=== PATIENT | male | born 1950 | race Caucasian/White ===

== ENCOUNTER → 2017-09-22 | Outpatient (CLI) | payer OTHER ==
[~2017-09-22] MED LIST: ACET-1256 PO; ANT25 PO; ATOR-22 PO; DVN/160 PO; LEVO150T9 PO
[2017-09-22 12:36] LABS: BASO ABS # 0.06 K/uL (0-0.2); EOS % 2.4 %; EOS ABS # 0.15 K/uL (0-0.5); HEMATOCRIT 42.2 % (42-52); HEMOGLOBIN 13.8 g/dL (14.0-18.0); IG# 0.01 K/uL (0.00-0.02); LYMPH ABS # 1.25 K/uL (1.2-3.4); MEAN CELL VOLUME 87.6 fL (80-100); MEAN CORPUSCULAR HEMOGLOBIN 28.6 pg (25-34); MEAN CORPUSCULAR HGB CONC 32.7 g/dl (32-36); MEAN PLATELET VOLUME 10.9 fL (7.4-10.4); MONO % 12.6 %; MONO ABS # 0.79 K/uL (0.11-0.59); NEUT % 63.8 %; NEUT ABS # 3.99 K/uL (1.4-6.5); PLATELET COUNT 245 K/uL (130-400); RED CELL DISTRIBUTION WIDTH CV 14.9 % (11.5-14.5); RED CELL DISTRIBUTION WIDTH SD 47.6 fL (36.4-46.3); WHITE BLOOD COUNT 6.25 K/uL (4.8-10.8)
[2017-09-22 13:54] LABS: ALBUMIN 3.6 gm/dl (3.4-5.0); ALKALINE PHOSPHATASE 66 U/L (45-117); ALT/SGPT 38 U/L (12-78); AST/SGOT 18 U/L (15-37); BLOOD UREA NITROGEN 21 mg/dl (7-18); CARBON DIOXIDE 29 mmol/L (21-32); CREATININE 1.17 mg/dl (0.60-1.40); GLUCOSE 94 mg/dl (70-99); POTASSIUM 4.7 mmol/L (3.5-5.1); SODIUM 142 mmol/L (136-145); TOTAL PROTEIN 7.3 gm/dl (6.4-8.2)
[2017-09-22 14:05] LABS: CHOLESTEROL 160 mg/dl (0-200); LDL CHOLESTEROL CALCULATED 89 mg/dl
== END | disposition home or self-care (01) ==
LOC: C.LABBFT 07:46
PROVIDERS: ATTEND Internal Medicine
DX: I10 Essential (primary) hypertension (principal); R31.29 Other microscopic hematuria; E78.5 Hyperlipidemia, unspecified; E03.9 Hypothyroidism, unspecified

== ENCOUNTER 2022-11-30 15:50 | Inpatient (IN) ==
[2022-11-30] MEDS ORDERED: SODIUM CHLORIDE 0.9% 500 ML IV STA (16:16)
[2022-11-30] MEDS ORDERED: ONDANSETRON INJ 2 MG/ML 2 ML VIAL IV STA (16:16)
[2022-11-30] MEDS ORDERED: KETOROLAC TROMETHAMINE 15 MG/ML VIAL IV STA (16:16)
[2022-11-30] MEDS ORDERED: dexAMETHasone**PF** 10 MG/ML VIAL IV ONE (16:16)
--- NOTE | 2022-11-30 16:33 | Emergency Department Note ---
Impression & Plan Acute lumbar radiculopathy, Foot drop, left ED Provider Note NAME: LJ VANN III AGE: 72 SEX: M : 1950 ARRIVES VIA: Walk-In INFORMANT: Patient, ED PROVIDER(S): Lon Ray DO CHIEF COMPLAINT: Leg pain HPI: The patient is a 72-year-old male who presented to the emergency department for an evaluation of left leg pain. The patient has a long history of lumbar disc disease as well as lumbar radiculopathy from an injury he sustained many years ago. He has had surgery before. He was seen in our facility recently for similar complaints and followed up with his orthopedic spinal specialist. It was felt that the patient may require inpatient management as well as further testing. He was referred to the emergency department today for further evaluation. The patient states he has been compliant with his outpatient medications. He was started on oxycodone which he did take this morning. He states that this only helps slightly. He denies having any headache or weakness the upper extremities. ROS: See above HPI for pertinent positives & negatives. A total of 10 systems reviewed and were otherwise negative. PAST MEDICAL HISTORY: See Below PAST SURGICAL HISTORY: See Below FAMILY HISTORY: See Below SOCIAL HISTORY: See Below HOME MEDICATIONS: See Below ALLERGIES: See Below VITALS: See Below PHYSICAL EXAMINATION: GENERAL: The patient is awake and alert. He is very anxious appearing. EYES: The conjunctivae are clear. The pupils are round and reactive. EARS, NOSE, MOUTH AND THROAT: The nose is without any evidence of any deformity. NECK: The neck is nontender and supple. RESPIRATORY: Normal respiratory effort is noted there is no evidence of wheezing rhonchi or rales CARDIOVASCULAR: Regular rate and rhythm noted there no murmurs rubs or gallops normal S1 normal S2. GASTROINTESTINAL: The abdomen is soft. Abdomen is nontender. BACK: Diffuse midline tenderness was noted in the lumbar spine. Range of motion appears intact but painful. MUSCULOSKELETAL/EXTREMITIES: There is no evidence of gross deformity full range of motion is noted in the hips and shoulders. SKIN: There is no obvious evidence of any rash. There are no petechiae, pallor or cyanosis noted. NEUROLOGIC: Patient is awake alert and oriented x3. Patellar tendon reflexes were 1+ bilaterally. Achilles tendon reflexes were 1+ bilaterally. Great toe raise was absent in the left foot but present in the right foot. MEDICAL DECISION MAKING: The patient is a 72-year-old male who presented to the emergency department for an evaluation of back pain and leg issues. The patient has a history of lumbar disease in the past. He initially had problems with an injury many years ago. He has had surgery since. He has been followed by Dr. Moya. He was seen in our facility recently. Unfortunately patient cannot have an MRI. Attempts at a myelogram were not successful. The patient was seen today by his primary orthopedic spinal specialist. He was sent to the emergency department for further evaluation. I discussed patient's laboratory results with him. I discussed his condition with his primary orthopedic spinal specialist group. At this time they would prefer to keep the patient as an inpatient for possible surgical management. The patient was treated with pain medication as well as IV steroids emergency department. He was feeling much better on reevaluation. Triage Nursing notes reviewed. Prior medical records reviewed Vital Signs: reviewed and remarkable for hypertension. Differential diagnosis: Musculoskeletal, disc herniation, fracture, metastatic disease, cord compression, discitis, sciatica, cauda equina, infection, aortic disease, renal colic, gastrointestinal, as well as other pathologies. ER treatment provided: See below Diagnostics interpreted by me: ECG: none Cardiac Monitoring: An order was placed for continuous cardiac monitoring. The monitor shows a rate of 65 bpm with sinus rhythm. Laboratory studies: As stated above and show below. Imaging studies: See below. Consultation(s): I discussed this case with Karla who was on for Dr. Moya. Past Med/Surg History Medical History Amaurosis fugax of left eye Seen by PCP 01/27/22- referred by opthalmologist- had carotid doppler, head MRA and ECHO (all were unremarkable)-Holter scheduled 06/21/22 BPH (benign prostatic hyperplasia) Chronic back pain History of basal cell carcinoma of skin History of COVID-19 Diagnosed via home test 04/07/22--mild symptoms, no symptoms now...was tested @ [facility] on 04/21/22 and was NEGATIVE--continues to not have any symptoms History of renal stone Hypercholesterolemia Hypertension Hypothyroidism Macular degeneration of left eye Vertigo Surgical History History of appendectomy History of basal cell carcinoma (BCC) excision History of cataract surgery bilateral History of colonoscopy History of cystoscopy w/laser destruction kidney stone and stent placement; 05/10/22: LMA#5. History of hernia repair x2 on right side History of lumbar spinal fusion (~09/08/01) History of open reduction and internal fixation (ORIF) procedure (~09/08/01) left wrist History of tonsillectomy and adenoidectomy Hx laparoscopic cholecystectomy (05/27/22) Laparoscopic Cholecystectomy with Cholangiogram - Phu Arreguin MD, FACS S/P laparoscopic hernia repair left Family History Mother Heart disease Stroke syndrome Father Heart disease Myocardial infarction Sister Kidney disease Grandfather Heart disease Unknown Heart disease Other No family history of adverse response to anesthesia Denies family history of Ovarian cancer Prostate cancer Breast cancer Colorectal cancer Social History Smoking Status: Never smoker Age Quit Using Tobacco: 33; Second Hand Exposure: No; Hx Alcohol Use: Yes (very rarely) Alcohol type: beer and wine Alcohol Intake Frequency: Monthly or Less Hx Substance Use: No Preferred Language: Spanish Communication Ability: Effective Visual Impairment: No Limitations Hearing Ability: Normal 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[employer] Kitchen Required: No Beliefs That Will Affect Care: None marital status: Current Living Situation: Spouse current occupational status: retired Feels Safe at Home: Yes Childhood Exposure to Second-Hand Smoke: Yes caffeine: Yes during the past year weight has: remained stable Dental Care, Regularly: Yes Physical Activity Frequency: Daily Seatbelt Use: always Sunscreen Use: Yes Assistive Devices: Glasses Allergies Allergies Allergy/AdvReac Type Severity Reaction Status Date / Time Influenza Virus Vaccines Allergy Severe THROAT Verified 11/30/22 17:11 SWELL, LIPS SWELLING Penicillins Allergy Severe SWELLING,HIVES Verified 11/30/22 17:11 RASH morphine AdvReac Severe SEVERE Verified 11/30/22 17:11 HEADACHE lisinopril AdvReac Intermediate COUGH Verified 11/30/22 17:11 Home Meds Home Medications Medication Instructions Recorded Confirmed resvbcgs-[id number] acid 0.4 1 tab PO BID 10/25/18 11/30/22 mg-lycopene 2 mg-lutein 250 mcg tablet (Essential Man 50 Plus) levothyroxine 150 mcg tablet 150 mcg PO QAM 04/21/22 11/30/22 (Synthroid) rosuvastatin 20 mg tablet 20 mg PO HS 11/30/22 11/30/22 Previous Rx's Medication Instructions Recorded meclizine 25 mg tablet 25 mg PO TID PRN vertigo #30 tabs 03/20/21 hydrochlorothiazide 12.5 mg tablet 12.5 mg PO QAM #90 tabs 07/02/22 irbesartan 300 mg tablet 300 mg PO QAM #90 tabs 07/02/22 oxycodone-acetaminophen 5 mg-325 1 tab PO Q8H PRN pain #10 tabs 11/27/22 mg tablet (Endocet) Results & Data (ED) Vital Signs Vital Signs - 24 hr 11/30/22 16:05 11/30/22 16:59 11/30/22 16:59 Temperature 36.8 C Temperature Source Temporal Artery Scan Pulse Rate 72 Pulse Rate [Right Finger] 65 Pulse Rhythm [Right Finger] Regular Respiratory Rate 18 20 Respiratory Effort / Characteristics Non-Labored Spontaneous Respiratory Depth Normal Respiratory Pattern Regular Blood Pressure 170/101 H Blood Pressure [Right Arm] 171/100 H Blood Pressure Mean 124 Blood Pressure Mean [Right Arm] 123 Blood Pressure Position Sitting Pulse Oximetry 94 94 94 Oxygen Delivery Method Room Air Room Air Room Air Sepsis Recent Fever Within 48 Hours No Sepsis New/Unexplained Change in Mental Status No Sepsis Action Taken by Nursing No Action Required Home Medications Current Medication List: was personally reviewed by me Laboratory Data Attestation: I reviewed the patient's lab results. 11/30/22 16:50 11/30/22 16:50 Lab Results 11/30/22 11/30/22 Range/Units 16:50 16:50 WBC 6.55 (4.8-10.8) K/ul RBC 4.54 L (4.70-6.10) M/uL Hgb 13.0 L (14.0-18.0) g/dl Hct 38.6 L (42.0-52.0) % MCV 85.0 (80.0-100.0) fL MCH 28.6 (25.0-34.0) pg MCHC 33.7 (32.0-36.0) g/dL RDW Std Deviation 40.1 (36.4-46.3) fL RDW Coeff of Estephania 13.0 (11.5-14.5) % Plt Count 259 (130-400) K/uL MPV 10.5 (9.4-12.4) fL Immature Gran % (Auto) 0.3 % Neut % (Auto) 72.7 % Lymph % (Auto) 13.7 % Foard % (Auto) 11.3 % Eos % (Auto) 1.1 % Baso % (Auto) 0.9 % Neut # (Auto) 4.76 (1.40-6.50) K/uL Lymph # (Auto) 0.90 L (1.2-3.4) K/uL Foard # (Auto) 0.74 H (0.11-0.59) K/uL Eos # (Auto) 0.07 (0-0.50) K/uL Baso # (Auto) 0.06 (0-0.2) K/uL Immature Gran # (Auto) 0.02 (0.01-0.20) K/uL SARS-CoV-2, RNA, NAAT NEGATIVE (NEGATIVE) Administered Medications Discontinued Medications Dexamethasone Sodium Phosphate (DexamethasonePf 10 Mg/Ml Vial) 10 mg IV NOW ONE Stop: 11/30/22 16:17 Last Admin: 11/30/22 16:52 Dose: 10 mg Documented By: SAMSON Sodium Chloride (Nss) 500 mls @ 999 mls/hr IV .Q31M STA Stop: 11/30/22 16:46 Last Infusion: 11/30/22 17:33 Dose: 0 mls/hr Documented By: Admin: 11/30/22 16:52 Dose: 999 mls/hr Documented By: SAMSON Ketorolac Tromethamine (Ketorolac Tromethamine 15 Mg/Ml Vial) 10 mg IV NOW STA Stop: 11/30/22 16:17 Last Admin: 11/30/22 16:52 Dose: 10 mg Documented By: SAMSON Ondansetron HCl (Ondansetron Inj 2 Mg/Ml 2 Ml Vial) 4 mg IV NOW STA Stop: 11/30/22 16:17 Last Admin: 11/30/22 16:52 Dose: 4 mg Documented By: SAMSON Discharge Plan Visit Data Chief Complaint: Leg Injury/Pain Stated Complaint: PAIN L LEG, REF BY DOC,WEAKNESS IN LEG ED Provider: Lon Ray Discharge Problem: Acute lumbar radiculopathy, Foot drop, left Patient Disposition: Being Evaluated by Surgeon Forms Stand Alone Forms: My [facility] Prescriptions Prescriptions: No Action irbesartan 300 mg tablet 300 mg PO QAM Qty: 90 3RF hydrochlorothiazide 12.5 mg tablet 12.5 mg PO QAM Qty: 90 3RF meclizine 25 mg tablet 25 mg PO TID PRN (Reason: vertigo) Qty: 30 0RF Essential Man 50 Plus 0.4-2-250 mg-mg-mcg Tablet 1 tab PO BID Rx Instructions: contains omega 3 and food nutrients levothyroxine [Synthroid] 150 mcg tablet 150 mcg PO QAM oxycodone-acetaminophen [Endocet] 5-325 mg tablet 1 tab PO Q8H PRN (Reason: pain) Qty: 10 0RF rosuvastatin 20 mg tablet 20 mg PO HS Referrals Referrals: Leo Clemens MD [Primary Care Provider] -
[2022-11-30] MEDS ORDERED: ALUMINUM/MAGNESIUM SUSP 30 ML UDC PO PRN (16:45)
[2022-11-30] MEDS ORDERED: ACETAMINOPHEN 1,000 MG/100 ML VIAL IV PRN (16:45)
[2022-11-30] MEDS ORDERED: oxyCODONE HCL IR 5 MG TAB (IMMEDIATE RELEASE) PO PRN (16:45)
[2022-11-30] MEDS ORDERED: ONDANSETRON INJ 2 MG/ML 2 ML VIAL IV PRN (16:45)
[2022-11-30] MEDS ORDERED: MAGNESIUM HYDROXIDE SUSP 30 ML UDC PO PRN (16:45)
[2022-11-30] MEDS ORDERED: METOCLOPRAMIDE HCL INJ 5 MG/ML 2 ML VIAL IV PRN (16:45)
[2022-11-30] MEDS ORDERED: ONDANSETRON 4 MG OD TAB PO PRN (16:45)
[2022-11-30] MEDS ORDERED: diphenhydrAMINE Capsule 25 MG CAP PO PRN (16:45)
[2022-11-30] MEDS ORDERED: traMADol HCL 50 MG TABLET PO PRN (16:45)
[2022-11-30] MEDS ORDERED: ACETAMINOPHEN 500 MG TAB PO PRN (16:45)
[2022-11-30] MEDS ORDERED: PROMETHAZINE HCL 12.5 MG in SODIUM CHLORIDE 0.9% 50 ML IV PRN (16:45)
[2022-11-30] MEDS ORDERED: NALOXONE HCL 0.4 MG/1 ML VIAL/CARP IV PRN (16:45)
[2022-11-30] MEDS ORDERED: LORazepam 2 MG/1 ML VIAL IV PRN (16:45)
[2022-11-30] MEDS ORDERED: HYDROmorphone INJ 1 MG/ML SYRINGE IV PRN (16:45)
[2022-11-30 17:26] LABS: Basophils # (auto) 0.06 K/uL (0-0.2); Basophils % (auto) 0.9 %; Eosinophils # (auto) 0.07 K/uL (0-0.50); Eosinophils % (auto) 1.1 %; Hematocrit (blood only) 38.6 % (42.0-52.0); Immature Granulocytes # (auto) 0.02 K/uL (0.01-0.20); Immature Granulocytes % (auto) 0.3 %; Lymphocytes % (auto) 13.7 %; Mean Corpuscular Hemoglobin 28.6 pg (25.0-34.0); Mean Corpuscular Hgb Conc 33.7 g/dL (32.0-36.0); Mean Platelet Volume 10.5 fL (9.4-12.4); Monocytes # (auto) 0.74 K/uL (0.11-0.59); Monocytes % (auto) 11.3 %; Neutrophils # (auto) 4.76 K/uL (1.40-6.50); Neutrophils % (auto) 72.7 %; Platelet Count 259 K/uL (130-400); RDW Standard Deviation 40.1 fL (36.4-46.3); Red Blood Count 4.54 M/uL (4.70-6.10); White Blood Count 6.55 K/ul (4.8-10.8)
[2022-11-30 17:42] LABS: Albumin Globulin Ratio 1.7 (0.9-2); Albumin Level 4.3 gm/dl (3.4-5.0); Bilirubin,Total 0.5 mg/dl (0.2-1.0); Creatinine Clr Calc Pharmacy 66.8 ml/min; Est GFR (African American) 75.7 ml/min; Est GFR (Non-African American) 65.3 ml/min; Globulin 2.6 gm/dl (2.5-4.0); Potassium 3.9 mmol/L (3.5-5.1); Total Protein 6.9 gm/dl (6.0-8.3)
--- NOTE | 2022-11-30 17:56 | XRay Report ---
SINGLE VIEW CHEST CLINICAL HISTORY: Preoperative examination. FINDINGS: An AP, portable, upright chest radiograph is compared to study dated 05/04/2022 and correlat ed with chest CT dated 11/25/2022. The examination is degraded by portable technique and apical lordoti c positioning. Calcified mediastinal and hilar nodes are again noted. The heart is enlarged noting at herosclerotic calcification of the thoracic aorta. The pulmonary vasculature is noncongested. Chronic interstitial thickening is similar to previous. There are scattered calcified granulomas. Scarring/a telectasis is noted at the lung bases. No airspace consolidation or large pleural effusion is identif ied. No pneumothorax is seen. The skeletal structures are osteopenic. The bony thorax is grossly inta ct. Fusion hardware is partially visualized in the upper lumbar spine. IMPRESSION: Cardiomegaly with no active disease in the chest. ACT 112: Negative or not required by law. Electronically signed by: Coy Chávez M.D. 11/30/2022 5:55 PM
[2022-11-30 18:08] LABS: Partial Thromboplastin Ratio 0.9; Partial Thromboplastin Time 25.9 Seconds (21.0-31.0); Prothrombin Time 10.4 Seconds (9.0-12.0)
[2022-11-30 18:53] LABS: Appearance Urine Clear (Clear); Bilirubin Urine Negative (Negative); Blood Urine Negative (Negative); Color Urine Yellow; Glucose Urine UA Negative (Negative); Ketones Urine Negative (Negative); Leukocyte Esterase Urine Negative (Negative); Nitrite Urine Negative (Negative); Protein Urine Negative (Negative); Specific Gravity Urine 1.009 (1.000-1.030); Urobilinogen Urine Negative (Negative); pH Urine 6.5 (4.5-7.5)
[2022-11-30] MEDS: LACTATED RINGER'S 1,000 ML IV SCH (21:33)
[2022-11-30] MEDS: dexAMETHasone 8 MG in SYRINGE 0 ML IV SCH (21:53)
[2022-12-01] MEDS: LEVOTHYROXINE SODIUM 150 MCG TABLET PO SCH (04:22)
[2022-12-01] MEDS ORDERED: CLINDAMYCIN/D5W 900 MG/50 ML BAG IV SCH (06:00)
--- NOTE | 2022-12-01 06:17 | History & Physical Report ---
Date of Service December 01, 2022 Assessment & Plan (1) Lumbar disc herniation with radiculopathy: Plan: CT scan demonstrates foraminal disk herniation with facet hypertrophy on the left at L4-5. Bilateral foraminal stenosis L5-S1. Plan, attempt PT today to assess for function. NPO after midnight for possible decompression fusion L4-S1 with hardware removal L1-L4 if continued neurologic decline. Admission and Anticipated Discharge Date Admission Date: November 30, 2022 History of Present Illness Chief Complaint: back and left leg pain with weakness Primary Care Provider: Leo Clemens MD This is a 72 yo male with hx of previous spine fusion secondary to an L3 burst fracture over 20 years ago presenting with severe left leg pain and weakness. Patient has been struggling with leg pain for months now with marked pain from buttock to foot and worsening foot drop. His right leg is not painful. He is unable to stand or ambulate without incapacitating pain. Sitting is limited but tolerable. He is unable to sleep. Allergies Allergy/AdvReac Type Severity Reaction Status Date / Time Influenza Virus Vaccines Allergy Severe THROAT Verified 11/30/22 17:11 SWELL, LIPS SWELLING Penicillins Allergy Severe SWELLING,HIVES Verified 11/30/22 17:11 RASH morphine AdvReac Severe SEVERE Verified 11/30/22 17:11 HEADACHE lisinopril AdvReac Intermediate COUGH Verified 11/30/22 17:11 Home Medications Medication Instructions Recorded Confirmed Type attjgvop-mrn-okflh acid 0.4 1 tab PO BID 10/25/18 11/30/22 History mg-lycopene 2 mg-lutein 250 mcg tablet (Essential Man 50 Plus) meclizine 25 mg tablet 25 mg PO TID PRN vertigo #30 tabs 03/20/21 11/30/22 Rx levothyroxine 150 mcg tablet 150 mcg PO QAM 04/21/22 11/30/22 History (Synthroid) hydrochlorothiazide 12.5 mg tablet 12.5 mg PO QAM #90 tabs 07/02/22 11/30/22 Rx irbesartan 300 mg tablet 300 mg PO QAM #90 tabs 07/02/22 11/30/22 Rx oxycodone-acetaminophen 5 mg-325 1 tab PO Q8H PRN pain #10 tabs 11/27/22 11/30/22 Rx mg tablet (Endocet) rosuvastatin 20 mg tablet 20 mg PO HS 11/30/22 11/30/22 History Past Med/Surg History Medical History Amaurosis fugax of left eye Seen by PCP 01/27/22- referred by opthalmologist- had carotid doppler, head MRA and ECHO (all were unremarkable)-Holter scheduled 06/21/22 BPH (benign prostatic hyperplasia) Chronic back pain History of basal cell carcinoma of skin History of COVID-19 Diagnosed via home test 04/07/22--mild symptoms, no symptoms now...was tested @ [facility] on 04/21/22 and was NEGATIVE--continues to not have any symptoms History of renal stone Hypercholesterolemia Hypertension Hypothyroidism Macular degeneration of left eye Vertigo Surgical History History of appendectomy History of basal cell carcinoma (BCC) excision History of cataract surgery bilateral History of colonoscopy History of cystoscopy w/laser destruction kidney stone and stent placement; 05/10/22: LMA#5. History of hernia repair x2 on right side History of lumbar spinal fusion (~09/08/01) History of open reduction and internal fixation (ORIF) procedure (~09/08/01) left wrist History of tonsillectomy and adenoidectomy Hx laparoscopic cholecystectomy (05/27/22) Laparoscopic Cholecystectomy with Cholangiogram - Phu Arreguin MD, FACS S/P laparoscopic hernia repair left Family History Mother Heart disease Stroke syndrome Father Heart disease Myocardial infarction Sister Kidney disease Grandfather Heart disease Unknown Heart disease Other No family history of adverse response to anesthesia Denies family history of Ovarian cancer Prostate cancer Breast cancer Colorectal cancer Social History Smoking Status: Former smoker Age Quit Using Tobacco: 33; Second Hand Exposure: No; Do You Dip or Chew Tobacco: No; Tobacco Cessation Education Requested by Patient: No Hx Alcohol Use: Yes Alcohol type: beer Alcohol Intake Frequency: Monthly or Less Hx Substance Use: No Preferred Language: Syriac Communication Ability: Effective Visual Impairment: No Limitations Hearing Ability: Normal Ash Collector Required: No Beliefs That Will Affect Care: None marital status: Current Living Situation: Spouse current occupational status: retired Feels Safe at Home: Yes Childhood Exposure to Second-Hand Smoke: Yes caffeine: Yes during the past year weight has: remained stable Dental Care, Regularly: Yes Physical Activity Frequency: Daily Seatbelt Use: always Sunscreen Use: Yes Assistive Devices: None Physical Exam Physical Exam: Patient is in obvious distress. 3/5 L dorsi flexion, 4/5 EHL, 5/5 plantar on the left, 5/5 on the right. He is hypersensative to touch on the left vs right. Tension signs with SLR on the left vs right. Results & Data Results & Data ([facility]) Vital Signs (Past 12 Hours) Vital Signs Temp Pulse Pulse Resp BP BP Pulse Ox 11/30/22 20:10 36.7 C 87 18 171/91 H 97 11/30/22 20:00 87 18 171/100 H O2 Del Method 11/30/22 20:10 Room Air 11/30/22 20:00 Room Air Code Status & VTE Plan VTE Prophylaxis Plan VTE Prophylaxis will be ordered: Yes
[2022-12-01] MEDS: dexAMETHasone 8 MG in SYRINGE 0 ML IV SCH ×2 (06:20→15:57)
[2022-12-01] MEDS: LACTATED RINGER'S 1,000 ML IV SCH ×3 (07:12→22:58)
[2022-12-01] MEDS: hydroCHLOROthiazide 25 MG TAB PO SCH (08:23)
[2022-12-01] MEDS ORDERED: IRBESARTAN 150 MG TAB PO SCH (09:00)
[2022-12-01] MEDS: LOSARTAN POTASSIUM 50 MG TAB PO SCH (09:57)
--- NOTE | 2022-12-01 11:30 | Hospitalist Consultation ---
Date of Consultation December 01, 2022 Assessment & Plan (1) Lumbar disc herniation with radiculopathy: NPO at midnight for possible surgery in the AM Pain management per primary team (2) Hypercholesterolemia: - Can resume Rosuvastatin upon discharge (3) Hypertension: - Continue Losartan 100mg daily (4) Hypothyroidism: - Continue Levothyroxine 150mcg daily Plan NPO at midnight SCDs PT/OT Patient medically stable for surgery History of Present Illness Reason for Consultation: Pre op medical evaluation Requesting Physician: Dr. Renard Moya Attending Physician: Renard Moya, DO History of Present Illness Patient has a pmhx of HTN, HLD, Hypothyroidism, BPH, renal lithiasis, hx of fracture back 20+ years ago requiring surgery and hardware placement L1-L4. Who currently has lumbar disc herniation with radiculopathy. CT demonstrated foraminal disk herniation with facet hypertrophy on the left at L4-5. Bilateral foraminal stenosis L5-S1. Patient was made NPO at midnight for possible decompression fusion L4-S1 with hardware removal L1-L4 if continued neurologic decline. Dr Moya placed a consult with Hospitalist service for pre op medical nimco luation. Patient currently has no chest pain, SOB, Dyspnea, cough, abdominal pain, nausea, vomiting, fevers, chills or unintentional weight loss. He does admit to low back pain with radiculopathy down left leg. He denies any urine complaints. He states he has not had a BM in the past 3 days and typically has a BM daily. Labs reveal a normal CBC, CMP, lipase and urinalysis. VSS and O2 saturation 95% on RA in NAD. Patient had recent CCY and surgery for renal lithiasis 6 months ago with out any difficulties. Allergies Allergy/AdvReac Type Severity Reaction Status Date / Time Influenza Virus Vaccines Allergy Severe THROAT Verified 11/30/22 17:11 SWELL, LIPS SWELLING Penicillins Allergy Severe SWELLING,HIVES Verified 11/30/22 17:11 RASH morphine AdvReac Severe SEVERE Verified 11/30/22 17:11 HEADACHE lisinopril AdvReac Intermediate COUGH Verified 11/30/22 17:11 Home Medications Medication Instructions Recorded Confirmed Type psefwytp-ziu-llhkg acid 0.4 1 tab PO BID 10/25/18 11/30/22 History mg-lycopene 2 mg-lutein 250 mcg tablet (Essential Man 50 Plus) meclizine 25 mg tablet 25 mg PO TID PRN vertigo #30 tabs 03/20/21 11/30/22 Rx levothyroxine 150 mcg tablet 150 mcg PO QAM 04/21/22 11/30/22 History (Synthroid) hydrochlorothiazide 12.5 mg tablet 12.5 mg PO QAM #90 tabs 07/02/22 11/30/22 Rx irbesartan 300 mg tablet 300 mg PO QAM #90 tabs 07/02/22 11/30/22 Rx oxycodone-acetaminophen 5 mg-325 1 tab PO Q8H PRN pain #10 tabs 11/27/22 11/30/22 Rx mg tablet (Endocet) rosuvastatin 20 mg tablet 20 mg PO HS 11/30/22 11/30/22 History Patient History Medical History Amaurosis fugax of left eye Seen by PCP 01/27/22- referred by opthalmologist- had carotid doppler, head MRA and ECHO (all were unremarkable)-Holter scheduled 06/21/22 BPH (benign prostatic hyperplasia) Chronic back pain History of basal cell carcinoma of skin History of COVID-19 Diagnosed via home test 04/07/22--mild symptoms, no symptoms now...was tested @ [facility] on 04/21/22 and was NEGATIVE--continues to not have any symptoms History of renal stone Hypercholesterolemia Hypertension Hypothyroidism Macular degeneration of left eye Vertigo Surgical History History of appendectomy History of basal cell carcinoma (BCC) excision History of cataract surgery bilateral History of colonoscopy History of cystoscopy w/laser destruction kidney stone and stent placement; 05/10/22: LMA#5. History of hernia repair x2 on right side History of lumbar spinal fusion (~09/08/01) History of open reduction and internal fixation (ORIF) procedure (~09/08/01) left wrist History of tonsillectomy and adenoidectomy Hx laparoscopic cholecystectomy (05/27/22) Laparoscopic Cholecystectomy with Cholangiogram - Phu Arreguin MD, FACS S/P laparoscopic hernia repair left Family History Mother Heart disease Stroke syndrome Father Heart disease Myocardial infarction Sister Kidney disease Grandfather Heart disease Unknown Heart disease Other No family history of adverse response to anesthesia Denies family history of Ovarian cancer Prostate cancer Breast cancer Colorectal cancer Social History Smoking Status: Former smoker Age Quit Using Tobacco: 33; Second Hand Exposure: No; Do You Dip or Chew Tobacco: No; Tobacco Cessation Education Requested by Patient: No Hx Alcohol Use: Yes Alcohol type: beer Alcohol Intake Frequency: Monthly or Less Hx Substance Use: No Preferred Language: Wolof Communication Ability: Effective Visual Impairment: No Limitations Hearing Ability: Normal E Business Project Manager Required: No Beliefs That Will Affect Care: None marital status: Current Living Situation: Spouse current occupational status: retired Feels Safe at Home: Yes Childhood Exposure to Second-Hand Smoke: Yes caffeine: Yes during the past year weight has: remained stable Dental Care, Regularly: Yes Physical Activity Frequency: Daily Seatbelt Use: always Sunscreen Use: Yes Assistive Devices: Cane and Walker Review of Systems Constitutional: no fever, no chills and no weight loss Respiratory: no cough, no chest congestion and no dyspnea Cardiovascular: no chest pain, no dyspnea, no edema and no calf pain Gastrointestinal: + constipation; no abdominal pain, no nausea and no vomiting Genitourinary: no dysuria, no difficulty urinating, no urinary incontinence or no hematuria Musculoskeletal: + back pain and + radicular pain; no neck pain Integumentary: no rash, no lesions and no new lesions Neurologic: + numbness and + radiating pain; no falls and no syncope Physical Exam Constitutional: WD/WN, vitals as above Appears uncomfortable Neck: trachea midline, no thyromegaly Respiratory: normal respiratory effort, lungs clear to auscultation Cardiovascular: RRR, no murmur, no edema Extremities: normal capillary refill; no calf tenderness and no edema Gastrointestinal (Abdomen): normal bowel sounds, soft, nontender, no hepatosplenomegaly Musculoskeletal: mild decrease in strength left leg, per patient pain with SLR on left and did not want this reproduced Skin: no rashes, warm and dry Psychiatric: A+Ox3, euthymic affect Results & Data Results & Data Vital Signs (Past 12 Hours) Vital Signs Temp Pulse Resp BP Pulse Ox O2 Del Method 12/01/22 07:55 36.4 C L 70 17 158/90 H 96 Room Air Laboratory Results Abnormal lab results 11/30/22 11/30/22 Range/Units 16:50 16:50 RBC 4.54 L (4.70-6.10) M/uL Hgb 13.0 L (14.0-18.0) g/dl Hct 38.6 L (42.0-52.0) % Lymph # (Auto) 0.90 L (1.2-3.4) K/uL [place] # (Auto) 0.74 H (0.11-0.59) K/uL Lipase 8 L (11-82) U/L Diagnostic Findings Chest X-Ray 11/30/22 16:45 SINGLE VIEW CHEST CLINICAL HISTORY: Preoperative examination. FINDINGS: An AP, portable, upright chest radiograph is compared to study dated 05/04/2022 and correlated with chest CT dated 11/25/2022. The examination is degraded by portable technique and apical lordotic positioning. Calcified mediastinal and hilar nodes are again noted. The heart is enlarged noting atherosclerotic calcification of the thoracic aorta. The pulmonary vasculature is noncongested. Chronic interstitial thickening is similar to previous. There are scattered calcified granulomas. Scarring/atelectasis is noted at the lung bases. No airspace consolidation or large pleural effusion is identified. No pneumothorax is seen. The skeletal structures are osteopenic. The bony thorax is grossly intact. Fusion hardware is partially visualized in the upper lumbar spine. IMPRESSION: Cardiomegaly with no active disease in the chest. ACT 112: Negative or not required by law. Electronically signed by: Coy Chávez M.D. 11/30/2022 5:55 PM PG Care Time/CCT Total # of Minutes Spent Total Time Spent with Patient: Total time spent is greater than 50% in coordination of care (as documented) at patient's floor/unit and/or counseling patient: Coding Level of Care Code 16030 IN/OBS CONSULT LVL 2,35M Diagnoses Lumbar disc herniation with radiculopathy M51.16 Hypercholesterolemia E78.00 Hypertension I10 Hypertension type: essential hypertension Hypothyroidism E03.9 (3) Hypertension Hypertension type: essential hypertension Qualified Code(s): I10 - Essential (primary) hypertension
[2022-12-01] MEDS ORDERED: POLYETHYLENE (MIRALAX) 17 GM PACK PO ONE (13:18)
[2022-12-02] MEDS: LEVOTHYROXINE SODIUM 150 MCG TABLET PO SCH (05:36)
[2022-12-02] MEDS ORDERED: CLINDAMYCIN/D5W 900 MG/50 ML BAG IV SCH (06:00)
[2022-12-02 06:59] LABS: Hematocrit (blood only) 36.1 % (42.0-52.0); Hemoglobin 12.1 g/dl (14.0-18.0); Mean Corpuscular Hemoglobin 28.8 pg (25.0-34.0); Mean Corpuscular Hgb Conc 33.5 g/dL (32.0-36.0); Mean Platelet Volume 10.8 fL (9.4-12.4); Platelet Count 283 K/uL (130-400); RDW Standard Deviation 40.1 fL (36.4-46.3); White Blood Count 13.97 K/ul (4.8-10.8)
[2022-12-02 07:41] LABS: BUN Creatinine Ratio 28.3 (10-20); Creatinine Clr Calc Pharmacy 69.6 ml/min; Est GFR (African American) 87.8 ml/min; Est GFR (Non-African American) 75.8 ml/min; Potassium 4.9 mmol/L (3.5-5.1)
--- NOTE | 2022-12-02 07:50 | Hospitalist Progress Note ---
Date of Service December 02, 2022 Assessment & Plan (1) Lumbar disc herniation with radiculopathy: Plan: Surgery today Pain management per primary team Reviewed CBC mild elevated WBC likely reactive, afebrile and no signs of infecton Repeat CBC and BMP in AM (2) Hypercholesterolemia: Plan: - Can resume Rosuvastatin at discharge (3) Hypertension: Plan: - Continue Losartan 100mg one daily (4) Hypothyroidism: Plan: - Continue Levothyroxine 150mcg daily Plan Diet after surgery per primary SCDs PT/OT Patient medically stable for surgery Admission and Anticipated Discharge Date Admission Date: December 01, 2022 Subjective Patient was seen early this AM before going to surgery. He had no new complaints today. Review of Systems Constitutional: no fever, no chills and no weight loss Respiratory: no cough, no chest congestion and no dyspnea Cardiovascular: no chest pain, no dyspnea, no edema and no calf pain Gastrointestinal: + constipation; no abdominal pain, no nausea and no vomiting Genitourinary: no dysuria, no difficulty urinating, no urinary incontinence or no hematuria Musculoskeletal: + back pain and + radicular pain; no neck pain Integumentary: no rash, no lesions and no new lesions Neurologic: + numbness and + radiating pain; no falls and no syncope Physical Exam Constitutional: WD/WN, vitals as above Neck: trachea midline, no thyromegaly Respiratory: normal respiratory effort, lungs clear to auscultation Cardiovascular: RRR, no murmur, no edema Extremities: normal capillary refill; no calf tenderness and no edema Gastrointestinal (Abdomen): normal bowel sounds, soft, nontender, no hepatosplenomegaly Skin: no rashes, warm and dry Psychiatric: A+Ox3, euthymic affect Results & Data Results & Data Vital Signs (Past 12 Hours) Vital Signs Temp Pulse Resp BP Pulse Ox O2 Del Method 12/02/22 07:10 36.5 C 58 L 16 135/83 95 Room Air Laboratory Results Abnormal lab results 12/02/22 12/02/22 12/02/22 Range/Units 06:36 06:36 06:36 WBC 13.97 H (4.8-10.8) K/ul RBC 4.20 L (4.70-6.10) M/uL Hgb 12.1 L (14.0-18.0) g/dl Hct 36.1 L (42.0-52.0) % BUN 28 H (6-23) mg/dl BUN/Creatinine Ratio 28.3 H (10-20) Glucose 123 H (70-99(Fasting)) mg/dl Crossmatch See Detail Diagnostic Findings Lumbar Spine X-Ray 12/02/22 10:05 FL lumbar spine 2-3V CLINICAL HISTORY: L4-S1 DECOMPRESSION AND FUSION, L1-L4 HARDWARE REMOVAL COMPARISON STUDY: Lumbar spine CT November 27, 2022. FLUOROSCOPY TIME: 23 seconds. EXPOSURE DOSE: 11.94 mGy FLUOROSCOPIC IMAGES: 2 FINDINGS: Hardware removal was performed. Subsequent L4-L5 and L5-S1 discectomies with interbody spacer placement are noted. There is a posterior decompression with bilateral pedicle screw fusion from L4 through S1. The hardware is intact. IMPRESSION: Fluoroscopy provided during hardware removal and subsequent L4-S1 decompression and fusion. ACT 112: Negative or not required by law. Electronically signed by: Steve Bowden M.D. 12/02/2022 1:42 PM PG Care Time/CCT Total # of Minutes Spent Total Time Spent with Patient: Total time spent is greater than 50% in coordination of care (as documented) at patient's floor/unit and/or counseling patient: Coding Level of Care Code 74407 SUB INP/OBS CARE 10/13MIN Diagnoses Lumbar disc herniation with radiculopathy M51.16 Hypercholesterolemia E78.00 Hypertension I10 Hypertension type: essential hypertension Hypothyroidism E03.9 (3) Hypertension Hypertension type: essential hypertension Qualified Code(s): I10 - Essential (primary) hypertension
[2022-12-02] MEDS: hydroCHLOROthiazide 25 MG TAB PO SCH (08:52)
[2022-12-02] MEDS: LOSARTAN POTASSIUM 50 MG TAB PO SCH (08:52)
[2022-12-02] MEDS ORDERED: ROCURONIUM BROMIDE 10 MG/ML 5 ML VIAL IV ONE ×3 (09:15→12:13)
[2022-12-02] MEDS ORDERED: PROPOFOL IV EMULSION 10 MG/ML 20 ML VIAL IV ONE (09:15)
[2022-12-02] MEDS ORDERED: ONDANSETRON INJ 2 MG/ML 2 ML VIAL ONE (09:16)
[2022-12-02] MEDS ORDERED: LIDOCAINE 2% MPF LOCAL 5 ML VIAL INFIL ONE (09:16)
--- NOTE | 2022-12-02 09:38 | History & Physical Bridge Note ---
Date of Service December 02, 2022 History & Physical Bridge Note I have examined the patient, reviewed the History & Physical and in the interval since the performance of the History & Physical I have noted the following changes of clinical significance: Patient continues to have severe left leg radiculopathy exacerbated with activity standing walking. Is requiring significant amounts of medication to control his pain. In light of his medication requirement and neurologic decline recommending emergent decomp ression and fusion to prevent permanent nerve deficit and narcotic requirement. He would require lumbar decompression fusion L4-S1 with removal of instrumentation L1 to L 4
[2022-12-02] MEDS ORDERED: fentaNYL citrate PF 100 MCG/2 ML VIAL IV PRN ×2 (09:46→10:16)
[2022-12-02] MEDS ORDERED: HYDROmorphone INJ 2 MG/ML SYR/VIAL IV PRN ×2 (09:46→10:16)
[2022-12-02] MEDS ORDERED: ATROPINE SULFATE 0.1 MG/ML 10ML SYR IV PRN ×2 (09:46→10:16)
[2022-12-02] MEDS ORDERED: ONDANSETRON INJ 2 MG/ML 2 ML VIAL IV PRN ×3 (09:46→14:53)
[2022-12-02] MEDS ORDERED: ePHEDrine sulfate 50 MG/ML AMP IV PRN ×2 (09:46→10:16)
--- NOTE | 2022-12-02 09:46 | Anesthesiology Consultation ---
Date of Service December 02, 2022 Assessment & Plan Chart Review Chart Review: Acceptable Risk for Surgery and Patient NOT seen in Pre Admission Testing Consults Requested none ASA ASA2 Proposed Anesthesia Anesthesia Type: General Risk / Benefits Reviewed With: PT / POA / Parent / Guardian, Accepts Plan and Informed Consent Obtained History Surgery Operation Date: 12/02/22 10:05 Proposed Procedures p L4-S1 Decompression and Fusion, L1-L4 Hardware Removal, Spinal Cord Monitoring - Renard Moya, Height/Weight Height: 5 ft 10 in Weight: 87.2 kg Allergies Allergy/AdvReac Type Severity Reaction Status Date / Time Influenza Virus Vaccines Allergy Severe THROAT Verified 11/30/22 17:11 SWELL, LIPS SWELLING Penicillins Allergy Severe SWELLING,HIVES Verified 11/30/22 17:11 RASH morphine AdvReac Severe SEVERE Verified 11/30/22 17:11 HEADACHE lisinopril AdvReac Intermediate COUGH Verified 11/30/22 17:11 Medications Home Medications Medication Instructions Recorded Confirmed Last Taken ywysmpfk-oqg-frnxa acid 0.4 1 tab PO BID 10/25/18 11/30/22 11/30/22 08:00 mg-lycopene 2 mg-lutein 250 mcg tablet (Essential Man 50 Plus) meclizine 25 mg tablet 25 mg PO TID PRN vertigo #30 tabs 03/20/21 11/30/22 05/23/22 levothyroxine 150 mcg tablet 150 mcg PO QAM 04/21/22 11/30/22 11/30/22 (Synthroid) hydrochlorothiazide 12.5 mg tablet 12.5 mg PO QAM #90 tabs 07/02/22 11/30/22 11/30/22 irbesartan 300 mg tablet 300 mg PO QAM #90 tabs 07/02/22 11/30/22 11/30/22 oxycodone-acetaminophen 5 mg-325 1 tab PO Q8H PRN pain #10 tabs 11/27/22 11/30/22 Unknown mg tablet (Endocet) rosuvastatin 20 mg tablet 20 mg PO HS 11/30/22 11/30/22 11/29/22 Active Medications Generic Name Dose Route Start Last Admin Trade Name Freq PRN Reason Stop Dose Admin Hydrochlorothiazide 12.5 mg 12/01/22 09:00 12/02/22 08:52 Hydrochlorothiazide 25 Mg Tab PO 12/31/22 08:59 12.5 mg QAM IS[place] Administration Lactated Ringer's 1,000 mls @ 75 mls/hr 11/30/22 16:45 12/01/22 22:58 Lr IV 12/30/22 16:44 75 mls/hr .[id number] IS[place] Administration Levothyroxine Sodium 150 mcg 12/01/22 06:30 12/02/22 05:36 Levothyroxine Sodium 150 Mcg Tablet PO 12/31/22 06:29 150 mcg DAILYBB [place] Administration Losartan Potassium 100 mg 12/01/22 09:00 12/02/22 08:52 Losartan Potassium 50 Mg Tab PO 12/31/22 08:59 100 mg QAM [place] Administration Oxycodone HCl 5 - 10 mg 11/30/22 16:45 11/30/22 21:32 Oxycodone Hcl Ir 5 Mg Tab (Immediate Release) PO 12/14/22 16:44 10 mg Q4H PRN Administration mod to severe pain NPO Date Last Intake of Fluids: 12/01/22 Time Last Intake of Fluids: 21:00 Last Intake of Fluids Comment: sip of water 0850 w/med Date Last Intake of Solids: 12/01/22 Time Last Intake of Solids: 21:00 Past Medical History Medical History Amaurosis fugax of left eye Seen by PCP 01/27/22- referred by opthalmologist- had carotid doppler, head MRA and ECHO (all were unremarkable)-Holter scheduled 06/21/22 BPH (benign prostatic hyperplasia) Chronic back pain History of basal cell carcinoma of skin History of COVID-19 Diagnosed via home test 04/07/22--mild symptoms, no symptoms now...was tested @ [facility] on 04/21/22 and was NEGATIVE--continues to not have any symptoms History of renal stone Hypercholesterolemia Hypertension Hypothyroidism Macular degeneration of left eye Vertigo Exercise / Class Metabolic Activity II 4-5 Yardwork/Stairs/Walk up hill Past Family History Family History Mother Heart disease Stroke syndrome Father Heart disease Myocardial infarction Sister Kidney disease Grandfather Heart disease Unknown Heart disease Other No family history of adverse response to anesthesia Denies family history of Ovarian cancer Prostate cancer Breast cancer Colorectal cancer Past Surgical History Surgical History History of appendectomy History of basal cell carcinoma (BCC) excision History of cataract surgery bilateral History of colonoscopy History of cystoscopy w/laser destruction kidney stone and stent placement; 05/10/22: LMA#5. History of hernia repair x2 on right side History of lumbar spinal fusion (~09/08/01) History of open reduction and internal fixation (ORIF) procedure (~09/08/01) left wrist History of tonsillectomy and adenoidectomy Hx laparoscopic cholecystectomy (05/27/22) Laparoscopic Cholecystectomy with Cholangiogram - Phu Arreguin MD, FACS S/P laparoscopic hernia repair left Past Anesthesia History No Hx of Anesthesia Complications and No Family Hx of Anesthesia Complications History of PONV No Hx of PONV and No Hx of Motion Sickness Social History Smoking Status: Former smoker tobacco type: cigarettes Do You Dip or Chew Tobacco: No Hx Alcohol Use: Yes Alcohol type: beer alcohol intake frequency: holidays/special occasions only Hx Substance Use: No substance use type: does not use Physical Exam Vital Signs Last Vital Signs Temp 36.6 C 12/02/22 09:05 Pulse 60 12/02/22 09:05 Resp 20 12/02/22 09:05 BP 143/94 H 12/02/22 09:05 Pulse Ox 97 12/02/22 09:05 O2 Del Method Room Air 12/02/22 09:05 ENMT Mouth: no dentition abnormality Thyromental Distance: > or= 3.5 Finger Breadths Mallampati Class: II Neck normal visual inspection Respiratory normal respiratory effort Auscultation: lungs clear to auscultation bilaterally Cardiovascular Rate/Rhythm: regular rate and regular rhythm Psychiatric Orientation: alert Testing Laboratory Results 12/02/22 06:36 12/02/22 06:36 PT 10.4 Seconds (9.0-12.0) 11/30/22 16:50 INR 1.0 (0.9-1.1) 11/30/22 16:50 APTT 25.9 Seconds (21.0-31.0) 11/30/22 16:50 Urine Color Yellow 11/30/22 18:40 Urine Appearance Clear (Clear) 11/30/22 18:40 Urine pH 6.5 (4.5-7.5) 11/30/22 18:40 Ur Specific [place] 1.009 (1.000-1.030) 11/30/22 18:40 Urine Protein Negative (Negative) 11/30/22 18:40 Urine Glucose (UA) Negative (Negative) 11/30/22 18:40 Urine Ketones Negative (Negative) 11/30/22 18:40 Urine Nitrite Negative (Negative) 11/30/22 18:40 Ur Leukocyte Esterase Negative (Negative) 11/30/22 18:40 Blood Type O Positive 12/02/22 06:36 Antibody Screen NEGATIVE 12/02/22 06:36
[2022-12-02] MEDS ORDERED: fentaNYL citrate PF 100 MCG/2 ML VIAL ONE (09:50)
[2022-12-02] MEDS ORDERED: BUPIVACAINE/EPINEPHRINE 0.25% 1:200,000 30 ML VIAL ONE (09:52)
[2022-12-02] MEDS ORDERED: ceFAZolin 330 MG/ML 1 GM VIAL ONE (09:52)
[2022-12-02] MEDS ORDERED: PROMETHAZINE HCL 6.25 MG in SODIUM CHLORIDE 0.9% 50 ML IV PRN (10:16)
[2022-12-02] MEDS ORDERED: DEXAMETHASONE SOD INJ 4 MG/ML VIAL ONE (11:03)
[2022-12-02] MEDS ORDERED: FLOSEAL HEMOSTATIC MATRIX 10ML TOP ONE (11:03)
[2022-12-02] MEDS ORDERED: HYDROmorphone INJ 2 MG/ML SYR/VIAL ONE (11:13)
[2022-12-02] MEDS ORDERED: ePHEDrine sulfate 50 MG/ML AMP ONE (11:17)
[2022-12-02] MEDS ORDERED: SUGAMMADEX SODIUM 200 MG/2 ML VIAL IV ONE (12:55)
--- NOTE | 2022-12-02 13:03 | Operative Report ---
Post Operative Report Pre & Post Diagnosis Operation Date: 12/02/22 10:05 Pre-Op Diagnosis: Foraminal disk herniation with facet hypertrophy on the left at L4-5, Bilateral foraminal stenosis L5-S1 Neurological deficits Post-Op Diagnosis: Foraminal disk herniation with facet hypertrophy on the left at L4-5; Bilateral foraminal stenosis L5-S1 Neurological deficits Disc herniation L5-S1 on the left with caudal migration I identified the patient and participated in the time-out.: Yes Procedure Operation Date: 12/02/22 10:05 Actual Procedures #1 removal of posterior instrumentation L1-L4. #2 exploration of fusion L1-L4. #3 revision decompression bilaterally facetectomies and foraminotomies L4-L5 L5- S1. #4 posterior spinal fusion L4-S1. #5 placement posterior instrumentation L4-S1. #6 interbody fusion L4-L5 L5-S1. #7 placement of Spira 13 x 26 mm cage at L4-L5 and 14 x 26 mm cage at L5-S1. #8 placement locally harvested morselized autograft in the posterior gutters. #9 placement of I factor model V toss in interbody space and posterior gutters. Surgeon Renard Moya, DO Field Technical Assistant Karla Crespo Estimated Blood Loss 300 Findings See Below Patient had evidence of foraminal disc herniation L4-5 on the left but in addition to this he had a massive disc herniation L5-S1 on the left with free fragments migrating caudally. Specimens None Indications This is a 72-year-old male who presents with marked decline in status with severe left leg pain and progressive motor deficit. In light of his presentation and imaging findings and clinical progress we have recommended emergent decompression and fusion to prevent permanent nerve damage. Description of Procedure Patient was met with identified informed consent obtained. Patient was then taken to the operative suite underwent a patient placed in a prone position on the [facility] top [place] frame. All bony prominences well-padded eyes inspected to ensure no external pressure placed upon the. This point the lumbar spine was prepped and draped in normal sterile fashion. Sharp dissection with the assistance of Bovie cautery performed down to and exposing the instrumentation from L1-L4 including the remaining lamina and transverse processes of L4-5 and sacral ala bilaterally. I then proceeded move the hardware bilaterally explore the fusion mass noted to be intact. Then performed a revision complete laminectomy of L5 and L4 including bilateral medial facetectomies and foraminotomies addressing marked facet hypertrophy and lateral recess stenosis. Identified a large foraminal disc herniation at L4-L5 on the left but in addition to some massive disc at L5-S1 on the left with significant free fragment migrating caudally and marked displacement of the traversing roots. After complete decompression addressing the disc herniations pedicle screws were placed in L4-L5 and S1 levels bilaterally with assistance of fluoroscopy. The proper sized deonna placed. By way of transforaminal approach and left knee discectomy L5-S1 was performed endplates. To subcortical bleeding bone and a 14 x 26 mm Spira cage with I factor tapped the position. Then proceeded to L4-L5 and again by way of a transforaminal approach and left pleat discectomy performed endplates curetted to subcortically bone and a 13 x 26 mm spiral cage with I factor tapped in position. The rods were then locked in final position bilaterally. The transverse processes of L4-5 and the sacral ala burred to subcortical bleeding bone. I factor amount of the test and locally harvested morselized autograft was placed in the posterior gutters. 15 round YESSICA drain inserted. The incision was then closed with 1 Vicryl the fascia 2-0 Vicryl subcutaneously and 4 Monocryl for final skin closure. Steri-Strips and sterile dressings placed. Patient awakened taken to PACU in stable condition. Please note spinal cord monitoring was utilized at the procedure no changes noted. Lastly Karla Crespo was present at the entire procedure and all the patient positioning complex portions of the surgery and final skin closure. I attest to the content of the Intraoperative Record and any orders documented therein. Any exceptions are noted below.
[2022-12-02] MEDS: fentaNYL citrate PF 100 MCG/2 ML VIAL IV PRN ×2 (13:42→13:56)
--- NOTE | 2022-12-02 13:43 | Fluoroscopy Report ---
FL lumbar spine 2-3V CLINICAL HISTORY: L4-S1 DECOMPRESSION AND FUSION, L1-L4 HARDWARE REMOVAL COMPARISON STUDY: Lumbar spine CT November 27, 2022. FLUOROSCOPY TIME: 23 seconds. EXPOSURE DOSE: 11.94 mGy FLUOROSCOPIC IMAGES: 2 FINDINGS: Hardware removal was performed. Subsequent L4-L5 and L5-S1 discectomies with interbody spac er placement are noted. There is a posterior decompression with bilateral pedicle screw fusion from L 4 through S1. The hardware is intact. IMPRESSION: Fluoroscopy provided during hardware removal and subsequent L4-S1 decompression and fusi on. ACT 112: Negative or not required by law. Electronically signed by: Steve Bowden M.D. 12/02/2022 1:42 PM
[2022-12-02] MEDS ORDERED: PROMETHAZINE HCL 12.5 MG in SODIUM CHLORIDE 0.9% 50 ML IV PRN (14:53)
[2022-12-02] MEDS ORDERED: ALUMINUM/MAGNESIUM SUSP 30 ML UDC PO PRN (14:53)
[2022-12-02] MEDS ORDERED: DO NOT ADMINISTER FLU VACCINE PRN (14:53)
[2022-12-02] MEDS ORDERED: NALOXONE HCL 0.4 MG/1 ML VIAL/CARP IV PRN (14:53)
[2022-12-02] MEDS ORDERED: bisacodyL 10 MG SUPP PR PRN ×2 (14:53→16:45)
[2022-12-02] MEDS ORDERED: ONDANSETRON 4 MG OD TAB PO PRN (14:53)
[2022-12-02] MEDS ORDERED: traMADol HCL 50 MG TABLET PO PRN (14:53)
[2022-12-02] MEDS ORDERED: SOD PHOSPHATE/SOD BIPHOSPHATE ENEMA 132 ML BTL PR PRN (14:53)
[2022-12-02] MEDS ORDERED: METOCLOPRAMIDE HCL INJ 5 MG/ML 2 ML VIAL IV PRN (14:53)
[2022-12-02] MEDS ORDERED: hydrOXYzine HCl 25 MG TAB PO PRN (14:53)
[2022-12-02] MEDS ORDERED: LORazepam 0.5 MG TAB PO PRN (14:53)
[2022-12-02] MEDS ORDERED: DO NOT ADMINISTER PNEUMOCOCCAL VACCINE PRN (14:53)
[2022-12-02] MEDS ORDERED: ACETAMINOPHEN 1,000 MG/100 ML VIAL IV PRN (14:53)
[2022-12-02] MEDS ORDERED: HYDROmorphone INJ 1 MG/ML SYRINGE IV PRN (14:53)
[2022-12-02] MEDS ORDERED: diphenhydrAMINE Capsule 25 MG CAP PO PRN (14:53)
[2022-12-02] MEDS ORDERED: FAMOTIDINE 20 MG TAB PO PRN (14:53)
[2022-12-02] MEDS ORDERED: LORazepam 2 MG/1 ML VIAL IV PRN (14:53)
[2022-12-02] MEDS ORDERED: MAGNESIUM HYDROXIDE SUSP 30 ML UDC PO PRN (14:53)
[2022-12-02] MEDS ORDERED: HYDROmorphone INJ 0.5 MG/0.5 ML SYR IV PRN (14:53)
[2022-12-02] MEDS: LACTATED RINGER'S 1,000 ML IV SCH (15:30)
--- NOTE | 2022-12-02 16:35 | Anesthesiology Progress Note ---
Date of Service December 02, 2022 Anesthesia Post Procedure Vital Signs Vital Signs: Temp Pulse Pulse Resp BP Pulse Ox O2 Del Method 12/02/22 15:45 36.7 C 75 16 127/72 95 Room Air 12/02/22 15:15 36.5 C 74 16 130/68 95 Room Air 12/02/22 14:45 36.8 C 75 16 115/72 96 Room Air 12/02/22 14:10 36.8 C 64 10 L 115/75 64 L Room Air 12/02/22 14:00 36.8 C 79 13 124/74 96 Room Air 12/02/22 13:50 36.8 C 80 12 144/89 H 96 Oxymask 12/02/22 13:40 36.8 C 67 16 117/75 98 Oxymask 12/02/22 13:30 36.8 C 71 14 123/74 98 Oxymask 12/02/22 13:24 36.8 C 74 16 123/74 98 Oxymask 12/02/22 09:05 36.6 C 60 20 143/94 H 97 Room Air 12/02/22 08:51 36.8 C 57 L 16 134/79 97 Room Air 12/02/22 07:10 36.5 C 58 L 16 135/83 95 Room Air 12/01/22 19:41 36.8 C 70 16 149/82 H 96 Room Air O2 Flow Rate 12/02/22 15:45 12/02/22 15:15 12/02/22 14:45 12/02/22 14:10 12/02/22 14:00 12/02/22 13:50 2 12/02/22 13:40 3 12/02/22 13:30 4 12/02/22 13:24 5 12/02/22 09:05 12/02/22 08:51 12/02/22 07:10 12/01/22 19:41 Pain Intensity Left Leg: Pain Intensity: 4 Transfer of Care Handoff Completed per policy Notes Mental Status: alert / awake / arousable and participated in evaluation Patient Amnestic to Procedure: Yes Nausea / Vomiting: adequately controlled Pain: adequately controlled Airway Patency, RR, SpO2: stable & adequate BP & HR: stable & adequate Hydration State: stable & adequate Anesthetic Complications: no major complications apparent and Pt Satisfied with anesthetic care
[2022-12-02] MEDS: ceFAZolin 2000MG 2,000 MG/15 ML SYR IV SCH (18:38)
[2022-12-02] MEDS: oxyCODONE HCL IR 5 MG TAB (IMMEDIATE RELEASE) PO PRN (19:55)
[2022-12-02] MEDS: DOCUSATE SODIUM/SENNA 50/8.6MG TAB PO SCH (21:17)
[2022-12-03] MEDS: LACTATED RINGER'S 1,000 ML IV SCH (01:35)
[2022-12-03] MEDS: oxyCODONE HCL IR 5 MG TAB (IMMEDIATE RELEASE) PO PRN ×3 (01:38→10:15)
[2022-12-03] MEDS: ceFAZolin 2000MG 2,000 MG/15 ML SYR IV SCH (03:10)
[2022-12-03] MEDS: POLYETHYLENE (MIRALAX) 17 GM PACK PO SCH ×3 (05:42→17:18)
[2022-12-03] MEDS: LEVOTHYROXINE SODIUM 150 MCG TABLET PO SCH (05:42)
--- NOTE | 2022-12-03 05:58 | Electrocardiogram Report ---
Test Reason : Blood Pressure : / mmHG Vent. Rate : 085 BPM Atrial Rate : 085 BPM P-R Int : 172 ms QRS Dur : 082 ms QT Int : 366 ms P-R-T Axes : 037 018 005 degrees QTc Int : 435 ms Normal sinus rhythm Normal ECG When compared with ECG of 04-MAY-2022 15:53, T wave amplitude has decreased in Anterolateral leads Confirmed by Kal Fraire ([id number]) on 12/03/2022 5:57:56 AM Referred By: Renard Moya Confirmed By:Kal Fraire
--- NOTE | 2022-12-03 08:09 | Hospitalist Progress Note ---
Date of Service December 03, 2022 Assessment & Plan (1) Lumbar disc herniation with radiculopathy: Plan: Post op day #1 Pain management per primary team Reviewed CBC, WBC improved, Hgb slight drop 9 (12.1) - EBL 300, YESSICA drain 530ml likely also IV dilutional adding to the drop Repeat CBC in AM Continue PT/OT (2) Hypercholesterolemia: Plan: - Can resume Rosuvastatin at discharge (3) Hypertension: Plan: - Continue Losartan 100mg one daily - BP stable 123/69 (4) Hypothyroidism: Plan: - Continue Levothyroxine 150mcg daily Plan Tolerating regular diet SCDs PT/OT Admission and Anticipated Discharge Date Admission Date: December 01, 2022 Subjective Patient is sitting up in recliner. He states he was up and walked last night. He has a great appetite and no nausea, vomiting. He had a normal BM yesterday. He states his back pain and leg pain have significantly improved since the surgery. He does admit to some incisional surgical tenderness. He denies any chest pain, SOB or dyspnea. Hgb with a drop 9 (12.1) EBL 300ml, YESSICA drain 530ml also likely some IVFs dilutional drop. Review of Systems Constitutional: no fever, no chills and no weight loss Respiratory: no cough, no chest congestion and no dyspnea Cardiovascular: no chest pain, no dyspnea, no edema and no calf pain Gastrointestinal: no abdominal pain, no nausea and no vomiting Genitourinary: no dysuria, no difficulty urinating, no urinary incontinence or no hematuria Musculoskeletal: + back pain and + radicular pain; no neck pain Integumentary: no rash, no lesions and no new lesions Neurologic: + numbness and + radiating pain; no falls and no syncope Physical Exam Constitutional: WD/WN, vitals as above Neck: trachea midline, no thyromegaly Respiratory: normal respiratory effort, lungs clear to auscultation Cardiovascular: RRR, no murmur, no edema Extremities: normal capillary refill; no calf tenderness and no edema Gastrointestinal (Abdomen): normal bowel sounds, soft, nontender, no hepatosplenomegaly Skin: no rashes, warm and dry Psychiatric: A+Ox3, euthymic affect Results & Data Results & Data Vital Signs (Past 12 Hours) Vital Signs Temp Pulse Pulse Resp BP BP Pulse Ox 12/03/22 07:51 36.8 C 64 16 111/71 96 12/03/22 03:05 36.8 C 64 16 105/60 98 12/02/22 22:57 36.8 C 66 16 111/68 97 O2 Del Method 12/03/22 07:51 Room Air 12/03/22 03:05 Room Air 12/02/22 22:57 Room Air Laboratory Results Abnormal lab results 12/03/22 12/03/22 Range/Units 08:15 08:15 WBC 11.95 H (4.8-10.8) K/ul RBC 3.21 L (4.70-6.10) M/uL Hgb 9.0 L D (14.0-18.0) g/dl Hct 27.4 L (42.0-52.0) % Neut # (Auto) 8.96 H (1.40-6.50) K/uL [place] # (Auto) 1.62 H (0.11-0.59) K/uL BUN 25 H (6-23) mg/dl BUN/Creatinine Ratio 22.3 H (10-20) Calcium 7.9 L (8.5-10.1) mg/dl PG Care Time/CCT Total # of Minutes Spent Total Time Spent with Patient: Total time spent is greater than 50% in coordination of care (as documented) at patient's floor/unit and/or counseling patient: Coding Level of Care Code 06738 SUB INP/OBS CARE 10/13MIN Diagnoses Lumbar disc herniation with radiculopathy M51.16 Hypercholesterolemia E78.00 Hypertension I10 Hypertension type: essential hypertension Hypothyroidism E03.9 (3) Hypertension Hypertension type: essential hypertension Qualified Code(s): I10 - Essential (primary) hypertension
[2022-12-03] MEDS: ACETAMINOPHEN 500 MG TAB PO PRN ×2 (08:24→17:18)
[2022-12-03] MEDS: hydroCHLOROthiazide 25 MG TAB PO SCH (08:25)
[2022-12-03] MEDS: dexAMETHasone 6 MG in SYRINGE 0 ML IV SCH (08:25)
[2022-12-03] MEDS: LOSARTAN POTASSIUM 50 MG TAB PO SCH (08:25)
[2022-12-03 09:15] LABS: BUN Creatinine Ratio 22.3 (10-20); Calcium 7.9 mg/dl (8.5-10.1); Creatinine Clr Calc Pharmacy 61.6 ml/min; Est GFR (African American) 75.7 ml/min; Est GFR (Non-African American) 65.3 ml/min; Potassium 3.7 mmol/L (3.5-5.1)
[2022-12-03 09:22] LABS: Basophils # (auto) 0.02 K/uL (0-0.2); Basophils % (auto) 0.2 %; Eosinophils # (auto) 0.01 K/uL (0-0.50); Eosinophils % (auto) 0.1 %; Hematocrit (blood only) 27.4 % (42.0-52.0); Immature Granulocytes # (auto) 0.08 K/uL (0.01-0.20); Immature Granulocytes % (auto) 0.7 %; Lymphocytes # (auto) 1.26 K/uL (1.2-3.4); Lymphocytes % (auto) 10.5 %; Mean Corpuscular Hgb Conc 32.8 g/dL (32.0-36.0); Mean Corpuscular Volume 85.4 fL (80.0-100.0); Mean Platelet Volume 10.7 fL (9.4-12.4); Monocytes # (auto) 1.62 K/uL (0.11-0.59); Monocytes % (auto) 13.6 %; Neutrophils # (auto) 8.96 K/uL (1.40-6.50); Neutrophils % (auto) 74.9 %; Platelet Count 220 K/uL (130-400); RDW Coefficient of Variation 13.2 % (11.5-14.5); RDW Standard Deviation 41.1 fL (36.4-46.3); Red Blood Count 3.21 M/uL (4.70-6.10); White Blood Count 11.95 K/ul (4.8-10.8)
--- NOTE | 2022-12-03 13:54 | Orthopedic Progress Note ---
Date of Service December 03, 2022 Assessment & Plan (1) Lumbar disc herniation with radiculopathy: Plan: This time we will continue physical therapy monitor his YESSICA output hopefully discharge home in a few days. Admission and Anticipated Discharge Date Admission Date: December 01, 2022 Subjective Back pain controlled leg pain markedly improved Physical Exam Physical Exam: Patient is in the chair at the bedside. Is comfortable. Is good strength t esting. Results & Data Vital Signs (Past 12 Hours) Vital Signs Temp Pulse Pulse Resp BP BP Pulse Ox 12/03/22 11:52 36.8 C 64 16 123/69 95 12/03/22 07:51 36.8 C 64 16 111/71 96 12/03/22 03:05 36.8 C 64 16 105/60 98 O2 Del Method 12/03/22 11:52 Room Air 12/03/22 07:51 Room Air 12/03/22 03:05 Room Air
[2022-12-03] MEDS: DOCUSATE SODIUM/SENNA 50/8.6MG TAB PO SCH (20:03)
[2022-12-04] MEDS: POLYETHYLENE (MIRALAX) 17 GM PACK PO SCH ×3 (00:44→12:12)
[2022-12-04] MEDS: LEVOTHYROXINE SODIUM 150 MCG TABLET PO SCH (05:40)
[2022-12-04 07:01] LABS: Mean Corpuscular Hemoglobin 28.6 pg (25.0-34.0); Mean Corpuscular Hgb Conc 33.3 g/dL (32.0-36.0); Mean Corpuscular Volume 85.7 fL (80.0-100.0); Mean Platelet Volume 11.2 fL (9.4-12.4); Platelet Count 282 K/uL (130-400); RDW Coefficient of Variation 13.2 % (11.5-14.5); RDW Standard Deviation 40.8 fL (36.4-46.3); Red Blood Count 3.85 M/uL (4.70-6.10); White Blood Count 13.63 K/ul (4.8-10.8)
--- NOTE | 2022-12-04 08:05 | Hospitalist Progress Note ---
Date of Service December 04, 2022 Assessment & Plan (1) Lumbar disc herniation with radiculopathy: Plan: acute surgery, 12/02/22, decompression and fusion L1-4 YESSICA drain will be managed with Dr. Moya anticipate discharge on 12/04/2022 Patient has acute blood loss anemia postoperatively but is asymptomatic from it not needed transfusion (2) Hypercholesterolemia: Plan: -chronic and stable Can resume Rosuvastatin at discharge (3) Hypertension: Plan: -chornic and stable Continue Losartan 100mg one daily - BP stable (4) Hypothyroidism: Plan: - chronic and stable Continue Levothyroxine 150mcg daily Admission and Anticipated Discharge Date Admission Date: December 01, 2022 Subjective Patient was seen after breakfast he has no complaints has been walking in the hallway. He does not feel short of breath was acute blood loss anemia postoperatively. Physical Exam Physical Exam: Awake alert appropriate no distress Results & Data Results & Data Vital Signs (Past 12 Hours) Vital Signs Temp Pulse Resp BP Pulse Ox O2 Del Method 12/04/22 07:29 98.1 F 65 16 121/76 95 Room Air 12/04/22 06:52 98.4 F 70 16 130/83 95 Room Air 12/03/22 21:08 98.1 F 67 20 131/82 96 Room Air Laboratory Results Reviewed CBC PG Care Time/CCT Total # of Minutes Spent Total Time Spent with Patient: Total time spent is greater than 50% in coordination of care (as documented) at patient's floor/unit and/or counseling patient: Coding Level of Care Code 09848 SUB INP/OBS CARE /25MIN Diagnoses Lumbar disc herniation with radiculopathy M51.16 Hypercholesterolemia E78.00 Hypertension I10 Hypertension type: essential hypertension Hypothyroidism E03.9 (3) Hypertension Hypertension type: essential hypertension Qualified Code(s): I10 - Essential (primary) hypertension
[2022-12-04] MEDS: ACETAMINOPHEN 500 MG TAB PO PRN (09:10)
[2022-12-04] MEDS: LOSARTAN POTASSIUM 50 MG TAB PO SCH (09:11)
[2022-12-04] MEDS: hydroCHLOROthiazide 25 MG TAB PO SCH (09:11)
[2022-12-04] MEDS: dexAMETHasone 6 MG in SYRINGE 0 ML IV SCH (09:11)
--- NOTE | 2022-12-04 11:28 | Discharge Summary ---
Date of Service December 04, 2022 Admission HPI Per Admitting Provider This is a 72 yo male with hx of previous spine fusion secondary to an L3 burst fracture over 20 years ago presenting with severe left leg pain and weakness. Patient has been struggling with leg pain for months now with marked pain from buttock to foot and worsening foot drop. His right leg is not painful. He is unable to stand or ambulate without incapacitating pain. Sitting is limited but tolerable. He is unable to sleep. Principal Diagnosis Lumbar disc herniation with radiculopathy and progressive neuro deficit Discharge Data Allergies Allergy/AdvReac Type Severity Reaction Status Date / Time Influenza Virus Vaccines Allergy Severe THROAT Verified 11/30/22 17:11 SWELL, LIPS SWELLING Penicillins Allergy Severe SWELLING,HIVES Verified 11/30/22 17:11 RASH morphine AdvReac Severe SEVERE Verified 11/30/22 17:11 HEADACHE lisinopril AdvReac Intermediate COUGH Verified 11/30/22 17:11 Consultations 11/30/22 16:37 Consult Orthopedic Surgery Stat 11/30/22 16:45 Consult Anesthesiology Routine Consult Internal Medicine Routine Procedures Performed Operation Date: 12/02/22 10:05 Actual Procedures p L4-S1 Decompression and Fusion, L1-L4 Hardware Removal, Spinal Cord Monitoring(Not Applicable) - Renard Moya DO Ordered Studies 12/02/22 10:05 FL lumbar spine 2-3V Routine Hospital Course (1) Lumbar disc herniation with radiculopathy: Patient was admitted with severe left leg pain with progressive neuro deficit underwent decompression fusion tolerated this well was taken to orthopedic for postoperative. Postop day 1 pain was markedly improved. He is ambulating well with physical therapy postop day #2 continue to feel improvement excellent strength testing and subsequent discharge home. Discharge orders instructions found in chart for further view. Total Time Total Time Spent Total Time Spent (In Minutes): 20 minutes Discharge Plan Discharge Items Patient Disposition: Home - Self-Care Reason For Visit: NEUROLOGICAL DEFICIT Discharge Diagnosis: Lumbar disc herniation with neuro deficit Activity: As commented below Non-emergency contact: Primary Care Provider Call non-emergency contact if: you have any medication questions Follow-up/Referrals: Leo Clemens MD [Primary Care Provider] - Diet: Regular Addtl Attending Provider Instructions: ACTIVITY RECOMMENDATIONS: SELF CARE INSTRUCTIONS AFTER THORACIC/LUMBAR FUSIONS 1. You may walk to your tolerance. It is good exercise for your legs and back. Expect some back and intermittent leg aches and pains. 2. You may perform "counter-top" level activities (make a sandwich, georges with a project, etc.). 3. No bending or lifting of more than 10 pounds or back twisting of any nature (roll like a log when turning in bed). 4. You may ride in a car for 20-30 minutes at a time. No driving until after your first visit with your doctor. 5. Frequent changes of position and restricting sitting to 30 minutes at a time will help limit the amount of back spasms and stiffness you may experience. 6. You may discontinue the use of ambulatory aids (cane, crutches, etc.) once your strength and confidence allow. 7. You may propeller inspector the shower and let water strike your incision when you arrive home at least once daily. Do not take a tub bath, sit in a hot tub or go into a swimming pool until after your first recheck in the office. SPECIAL CARE INSTRUCTIONS: VERY IMPORTANT TO READ AND REVIEW A. Your surgical incision has been closed with a cosmetic suture under the skin that will dissolve in about 6 weeks. In 14 days, you can use a pair of clean scissors and cut the suture that is left outside of the skin at the ends of your incision. 1. The small skin tapes can be removed 7 days after surgery if they have not fallen off by that point. 2. You may keep the wound open to air as much as possible to promote healing after post-op day number 5 unless told otherwise by your doctor. 3. If you think the wound looks like it is becoming infected (redness or worsening drainage) and/or you are experiencing fever, chill or worsening back pain and muscle spasms, contact the office so that we may evaluate you as soon as possible. B. Complications are uncommon, but please contact us if you have any signs or symptoms of: 1. wound infection (fever higher than 102.5 degrees F, redness, separation of wound, drainage, or increasing pain from the incision) 2. blood clots in legs (pain, swelling, redness and warmth in legs) 3. urinary tract infection (fever higher than 102.5 degrees F, burning upon urination or increased frequency of urination) 4. nerve problems (inability to walk on your toes or heels, numbness, loss of bowel or bladder control) 5. any other symptoms that concern you C. Please call the office at if you have any concerns or questions about your operation or recovery. D. No smoking! Smoking drastically decreases the chance of a solid fusion. E. Do not take any anti-inflammatory medications (Indocin, Advil, Motrin, Aspirin, Naprosyn, etc.) as these may inhibit the chance of a solid fusion. Tylenol is okay to take for pain. MANAGING PAIN AFTER SPINAL SURGERY 1. Narcotic medication is intended for short-term use and will be provided for surgical pain. Surgical pain usually lasts for a period of 4-6 weeks. Narcotic medication includes Percocet, Vicodin, Darvocet, Tylenol #3 or Lortab. 2. Longer-term pain is more appropriately treated with non-narcotic medication such as Tylenol ES. 3. Muscle spasm is not appropriately treated with narcotics. Muscle relaxers such as Soma, Flexeril or Skelaxin can be used along with Tylenol ES. 4. Remember that we all live with some "aches and pains". This is not unusual or uncommon after an injury or as we get older. a. Back pain is expected and may include muscle spasms for 4 to 6 weeks after surgery. The pain should gradually improve. If the pain worsens for no apparent reason, please contact the office. b. Intermittent leg pain may also be experienced and should not be concerned about unless it worsens for no apparent reason. If so, please contact the office. 5. We will provide appropriate medication within the normal guidelines of their prescribed use. We will also be very cautious and aware of potential abuse and extended duration of patients' medication needs. a. Pain medications are for your comfort and to assist with sleep and rest so that the tissue can heal. They are not provided in order to return to normal activity and should not be used through the day. To do so or worsening pain at night can result from ongoing tissue damage and development of tolerance to the prescribed medicine. 6. Please allow 2-3 days to process refills. Prescriptions will not be mailed but must be picked up at the office. FOLLOW UP VISIT: Keep your scheduled follow-up appointment. Any questions, please call the office at . Pending Studies at Discharge: No Stand-Alone Forms: [facility], Smoking Cessation Medications and DC Order Prescriptions: New tramadol 50 mg tablet 50 mg PO Q6H PRN (Reason: pain, moderate) Qty: 30 0RF oxycodone 5 mg tablet 5 mg PO Q6H PRN (Reason: pain, severe) Qty: 30 0RF Continued irbesartan 300 mg tablet 300 mg PO QAM Qty: 90 3RF hydrochlorothiazide 12.5 mg tablet 12.5 mg PO QAM Qty: 90 3RF meclizine 25 mg tablet 25 mg PO TID PRN (Reason: vertigo) Qty: 30 0RF Essential Man 50 Plus 0.4-2-250 mg-mg-mcg Tablet 1 tab PO BID Rx Instructions: contains omega 3 and food nutrients levothyroxine [Synthroid] 150 mcg tablet 150 mcg PO QAM oxycodone-acetaminophen [Endocet] 5-325 mg tablet 1 tab PO Q8H PRN (Reason: pain) Qty: 10 0RF rosuvastatin 20 mg tablet 20 mg PO HS Discharge Orders: Discharge Order (Routine); Ordered 12/04/22 Ordered By: Renard Moya Admission Data Admit Date/Time: 12/01/22 10:10 Attending Provider: Renard Moya Admit Provider: Renard Moya Primary Care Provider: Leo Clemens. Other Providers: Renard Moya ; Teresa Rosen ; Janeth Orantes ; Vivienne Hutchinson ; Lata Eller ; Ermelinda Lainez ; Leonid Pemberton ; Dar Brock ; Gato Moore ; Ernie Araiza ; Susanna Araiza ; Juan Tejeda ; Poornima Manley ; Zbigniew Guerrero ; Dixon Foster ; Liborio Zamorano ; Huseyin Sanchez ; Faith Chery ; José Burgos ; Jannet Swan ; Khushi Burgos ; Misha Coleman ; Autumn Toth ; Elfego Voss. ; Fanny Blankenship ; Josefa Spears ; Kishan Garcia ; Lata Sanchez ; Keiko Lee A ; Fadia Joshua ; Nellie Howe A ; Demetrio Howe V ; Quoc Keyes ; Janeth Julio ; Reji Hudson ; Lucia Bliss ; Demetrio Castro ; Rachid Chery ; Tenzin Waters ; Reva Young ; Nemo David ; Demetrio Moreno ; Andres Cuevas ; Marianna Urbano ; Kurt Weber ; Xander Sanchez ; Mariela Villarreal ; Rickie Landers ; Noé Connolly ; Ziyad Loo ; Leo Pinedo ; Leonid Alfaro Jr ; Clara Love ; Ebonie Enriquez A. ; Lyly Duff A. ; Kishan Philippe ; Lata Red ; Ernie Iyer. ; Harvey Boyle I. ; Laly Corrales S. ; Ebonie Madrid A. ; Little Narayanan S. ; Theo Rutherford ; Keyshawn Reed ; Luis Walker ; Onel Dinero V. ; Aniket Boogie. ; Johnny Bailey ; Khushi Jin ; Evan Ding ; Eddie Jordan ; Alton Riley ; Bubba Vasquez ; Coy Albarran. ; Christine Khan ; Autumn Baldwin ; Apolinar Vazquez ; Toni Becker ; Lata Bustos ; Mendez Cuevas ; Kolton Galindo ; Brianna Carver ; Lata Guy ; Jennifer Montelongo ; Keshav Armando ; Izaiah Lorenzo ; Pham Bowman ; Khushi Faust ; Abelino Lyons ; Rickie Lindo ; Evan Leyva ; Mi Houser ; Davonte Brown ; Devin Turner ; Alma Bryson ; Bony Osei ; Poornima Agustin ; Jason Tavera ; Michelle Cruz ; Ruiz Guaman ; Roman Blanchard ; Chanda Trammell ; Richard Peres ; Virginia Albert ; Mark Monroe ; Eddie Aponte
--- NOTE | 2023-01-17 08:32 | Coding Query ---
CODING QUERY To promote full compliance with coding requirements relating to patient care, provider participation is requested in all cases of delimber operator uncertainty. 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 Can you please clarify the true meaning of these statement? Physician's Response(s): Thank you Briana Monk Principal Diagnosis: "that condition established after study, to be chiefly responsible for occasioning the admission of the patient to the hospital for care." Co-Existing Principal Diagnosis: "when two or more diagnoses equally meet the criteria for principal diagnosis as determined by the circumstances of admission, diagnostic work up, and/or therapy provided, and the Alphabetic Index, Tabular List, or another coding guideline does not provide sequencing direction, any one of the diagnoses may be sequenced first." "When the physician has documented what appears to be a current diagnosis in the body of the record, but has not included the diagnosis in the final diagnostic statement, the physician should be asked whether the diagnosis should be added." (Source Coding [facility] 2 QTR90. p3-4) LUIS
== END 2022-12-04 14:06 | disposition home or self-care (01) | DRG 454 ==
LOC: 3W 15:50 → ED 15:50 → 3W 20:00

== ENCOUNTER 2024-06-05 06:13 | Inpatient (IN) ==
--- NOTE | 2024-05-28 10:30 | Anesthesiology Consultation ---
Date of Service May 28, 2024 Assessment & Plan (1) Encounter for pre-operative examination: - awaiting surgeon ordered medical clearance. - pulmonary office visit 05/17/24 MN: "...Restrictive lung dysfunction TLC 76%, FVC 84%, DLCO 79%. One of the possibilities could be a kyphosis which the patient has along with acute lumbar fractures causing him with to stoop forward...no issues when it comes to his breathing, I do not think we need to workup mild restrictive lung disease with normal DLCO...Multiple granulomas bilaterally 9 mm right upper lobe groundglass nodule, resolved on CT chest 04/11 4 mm right lower lobe pulmonary nodule...Giant cell arteritis Was on 60 mg of prednisone for approximately 4 months then tapered off over the next couple of months. Last dose of prednisone was mid March 2024...Based on the CT chest I do not think patient has any opportunistic infection especially like PJP. Patient is supposed to see spine surgery in the near future, it is unsure whether he is going to need surgery. If he does need surgery, there is no absolute contraindication from pulmonary perspective for patient to undergo surgery. Would recommend 6-8 mL per KG of tidal volume during OR..." - Per manager assessment on 05/28/24: No known infectious disease contacts, current infectious disease symptoms in past 10 days or COVID positive test result in the past 30 days. Chart Review Chart Review: Pending: Refer to Additional Notes / Consult section and Patient NOT seen in Pre Admission Testing History Surgery Operation Date: 06/04/24 11:45 Proposed Procedures p L2 Kyphoplasty - Renard Moya DO s T12 to L4 Fusion, Possible Hardware Removal L4-S1 Spinal Cord Monitoring - Renard Moya DO Height/Weight Height: 5 ft 8 in Weight: 85.275 kg Allergies Allergy/AdvReac Type Severity Reaction Status Date / Time Influenza Virus Vaccines Allergy Severe THROAT Verified 05/28/24 09:38 SWELL, LIPS SWELLING Penicillins Allergy Severe SWELLING,HIVES Verified 05/28/24 09:38 RASH morphine AdvReac Severe SEVERE Verified 05/28/24 09:38 HEADACHE and Nausea lisinopril AdvReac Intermediate COUGH Verified 05/28/24 09:38 Medications Home Medications Medication Instructions Recorded Confirmed Last Taken meclizine 25 mg tablet 25 mg PO TID PRN vertigo #30 tabs 01/31/23 05/28/24 Unknown levothyroxine 150 mcg tablet 150 mcg PO QAM #90 tabs 06/27/23 05/28/24 07/13/23 05:00 (Synthroid) vit C 250 mg-vit E 90 mg-zinc 40 1 tab PO BID 07/11/23 05/28/24 07/11/23 mg-copper 1 [id number] capsule (PreserVision AREDS-2) zoledronic acid 5 mg/100 mL in ea IV YEARLY 09/20/23 05/15/24 Unknown mannitol 5 %-water intravenous piggybck (Reclast) hydrochlorothiazide 12.5 mg tablet 12.5 mg PO QAM #90 tabs 04/18/24 05/28/24 Unknown irbesartan 300 mg tablet 300 mg PO QAM #90 tabs 04/18/24 05/28/24 Unknown tocilizumab 162 mg/0.9 mL 162 mg (0.9 mL) subcut Q7D #4 mL 05/11/24 05/28/24 Unknown subcutaneous pen injector (Actemra ACTPen) aspirin 81 mg tablet,delayed 81 mg PO QAM 05/28/24 05/28/24 Unknown release rosuvastatin 40 mg tablet 40 mg PO HS 05/28/24 05/28/24 Unknown Past Medical History Medical History Chronic back pain Compression fracture of L2 reason for upcoming sx 06/04/24 Giant cell arteritis hx, gets weekly injection to help with this History of anemia History of basal cell carcinoma of skin History of COVID-19 Diagnosed via home test 04/07/22--mild symptoms, no symptoms now History of left foot drop "no current issues per pt, had in the past due to surgery" History of renal stone Hypercholesteremia Hypertension Hypothyroidism Macular degeneration of left eye Polymyalgia rheumatica SVT (supraventricular tachycardia) follows with [place] cardiology Vertigo hx Past Family History Family History Mother Heart disease Stroke syndrome Father Heart disease Myocardial infarction Sister Kidney disease Grandfather Heart disease Unknown Heart disease Other No family history of adverse response to anesthesia Denies family history of Ovarian cancer Prostate cancer Breast cancer Colorectal cancer Past Surgical History Surgical History History of appendectomy History of basal cell carcinoma (BCC) excision History of cataract surgery bilateral History of colonoscopy History of cystoscopy w/laser destruction kidney stone and stent placement; 05/10/22: LMA#5. History of hernia repair x2 on right side History of lumbar spinal fusion x2--12/02/22 Dr. Moya @ [facility] and 2000 History of open reduction and internal fixation (ORIF) procedure (~09/08/01) left wrist History of temporal artery biopsy History of tonsillectomy and adenoidectomy Hx laparoscopic cholecystectomy (05/27/22) Laparoscopic Cholecystectomy with Cholangiogram - Phu Arreguin MD, FACS S/P laparoscopic hernia repair left Social History Smoking Status: Former smoker tobacco type: cigarettes Do You Dip or Chew Tobacco: No (quit years ago; advised) Smoking End Date: 11/02/82 Hx Alcohol Use: Yes Alcohol type: beer alcohol intake frequency: other Alcohol Intake Frequency Comment: very rare-none since 08/2023 Hx Substance Use: No substance use type: does not use Lab Results Anesthesia Preop Results Results Anesthesia Widget: WBC 5.90 K/ul (4.8-10.8) 05/25/24 Hgb 14.8 g/dl (14.0-18.0) 05/25/24 Hct 44.9 % (42.0-52.0) 05/25/24 Plt 208 K/uL (130-400) 05/25/24 Na 142 mmol/L (136-145) 05/25/24 K 5.0 mmol/L (3.5-5.1) 05/25/24 Cl 109 mmol/L (98-107) H 05/25/24 CO2 29 mmol/L (21-32) 05/25/24 BUN 17 mg/dl (6-23) 05/25/24 Creat 0.98 mg/dl (0.6-1.4) 05/25/24 Glucose Level 99 mg/dl (70-99(Fasting)) 05/25/24 PT 10.9 Seconds (9.0-12.0) 05/25/24 PTT 25 Seconds (21-31) 05/25/24 INR 1.0 (0.9-1.1) 05/25/24 Urine Color Yellow 05/25/24 Urine Appearance Clear (Clear) 05/25/24 Urine pH 5.5 (4.5-7.5) 05/25/24 Urine Specific Johnston 1.018 (1.000-1.030) 05/25/24 Urine Protein Negative (Negative) 05/25/24 Urine Glucose (UA) Negative (Negative) 05/25/24 Urine Ketones Negative (Negative) 05/25/24 Urine Blood Negative (Negative) 05/25/24 Urine Nitrite Negative (Negative) 05/25/24 Urine Bilirubin Negative (Negative) 05/25/24 Urine Urobilinogen Negative (Negative) 05/25/24 Urine Leukocyte Esterase Negative (Negative) 05/25/24 Blood Type O Positive 05/25/24 Antibody Screen NEGATIVE 05/25/24 Testing Electrocardiogram Date: 05/25/24 NSR with sinus arrhythmia, rate 60 bpm Chest X-Ray Date: 05/25/24 No significant change compared to the prior study. No acute process. Echocardiogram Date: 02/16/22 EF 55-60% Normal LV wall motion Moderate cLVH Grade II Diastolic dysfunction Mildly dilated LA Mild mitral regurgitatin Proximal septal thickening is noted Pulmonary Function Test Date: 05/17/24 PFT 05/17/2024 personally reviewed: Mild restrictive lung dysfunction with mild decrease in TLC, no obstructive lung dysfunction, insignificant bronchodilator response, normal DLCO FVC 3.59 L 84%, FEV1 2.53 L 81%, FEV1/FVC 70, RV 69%, TLC 76%, RV/TLC 87%, DLCO 79%, DLCO/VA 111% Spirometry 01/05/2024: No obstructive lung dysfunction based on lower limit of normal, does have mild expiratory scooping FVC 3.77 L 87%, FEV1 2.49 L 79%, FEV1/FVC 66 (LLN 63) Other Testing Lung CT 04/13/24 1. No acute intrathoracic abnormality. 2. Evidence of chronic granulomatous disease. 3. Resolution of the previously noted 9 mm groundglass nodule of the right upper lobe. No suspicious pulmonary nodules identified. 4. Left nephrolithiasis. Head MRA 02/16/22 Unremarkable MRA of the head. Carotid doppler 01/27/22 1. No hemodynamically significant stenosis. 2. Normal antegrade vertebral flow bilaterally.
[2024-06-05] MEDS ORDERED: MIDAZOLAM HCL 1 MG/ML 2ML VIAL ONE (06:40)
[2024-06-05] MEDS ORDERED: fentaNYL citrate PF 100 MCG/2 ML VIAL ONE ×2 (06:40→08:30)
[2024-06-05] MEDS: GABAPENTIN 300 MG CAP PO SCH (06:46)
[2024-06-05] MEDS: LR 15ML/HR IV SCH (06:46)
[2024-06-05] MEDS: ACETAMINOPHEN 500 MG TAB PO SCH (06:46)
[2024-06-05] MEDS: CeleBREX 200 MG CAP PO SCH (06:46)
[2024-06-05] MEDS: LR 60ML/HR IV SCH (06:46)
[2024-06-05] MEDS ORDERED: METOCLOPRAMIDE HCL INJ 5 MG/ML 2 ML VIAL ONE (07:09)
[2024-06-05] MEDS ORDERED: ROCURONIUM BROMIDE 10 MG/ML 5 ML VIAL IV ONE ×2 (07:09→10:04)
[2024-06-05] MEDS ORDERED: ONDANSETRON INJ 2 MG/ML 2 ML VIAL ONE (07:09)
[2024-06-05] MEDS ORDERED: PROPOFOL IV EMULSION 10 MG/ML 20 ML VIAL IV ONE (07:09)
[2024-06-05] MEDS ORDERED: DEXAMETHASONE SOD INJ 4 MG/ML VIAL ONE (07:09)
[2024-06-05] MEDS ORDERED: LIDOCAINE 2% 2 ML VIAL/AMP(20MG/ML) INFIL ONE (07:09)
--- NOTE | 2024-06-05 07:39 | History & Physical Bridge Note ---
Date of Service June 05, 2024 History & Physical Bridge Note I have examined the patient, reviewed the History & Physical and in the interval since the performance of the History & Physical I have noted the following changes of clinical significance: no changes noted
--- NOTE | 2024-06-05 07:41 | History & Physical Report ---
Date of Service June 05, 2024 Assessment & Plan (1) Compression fracture of L2: Plan: T12-L4 decompression and fusion, possible L1 kyphoplasty, possible hardware removal L4-S1 History of Present Illness Chief Complaint: Back and bilateral leg pain Primary Care Provider: Leo Clemens MD This is a 74-year-old male who presents for chronic persistent back and leg pain and failing course of nonoperative care is here for surgical intervention. Allergies Allergy/AdvReac Type Severity Reaction Status Date / Time Influenza Virus Vaccines Allergy Severe THROAT Verified 06/05/24 06:41 SWELL, LIPS SWELLING Penicillins Allergy Severe SWELLING,HIVES Verified 06/05/24 06:41 RASH morphine AdvReac Severe SEVERE Verified 06/05/24 06:41 HEADACHE and Nausea lisinopril AdvReac Intermediate COUGH Verified 06/05/24 06:41 Home Medications Medication Instructions Recorded Confirmed Type levothyroxine 150 mcg tablet 150 mcg PO QAM #90 tabs 06/27/23 06/05/24 Rx (Synthroid) vit C 250 mg-vit E 90 mg-zinc 40 1 tab PO BID 07/11/23 06/05/24 History mg-copper 1 [id number] capsule (PreserVision AREDS-2) hydrochlorothiazide 12.5 mg tablet 12.5 mg PO QAM #90 tabs 04/18/24 06/05/24 Rx irbesartan 300 mg tablet 300 mg PO QAM #90 tabs 04/18/24 06/05/24 Rx tocilizumab 162 mg/0.9 mL 162 mg (0.9 mL) subcut Q7D #4 mL 05/11/24 06/05/24 Rx subcutaneous pen injector (Actemra ACTPen) aspirin 81 mg tablet,delayed 81 mg PO QAM 05/28/24 06/05/24 History release rosuvastatin 40 mg tablet 40 mg PO HS 05/28/24 06/05/24 History zoledronic acid 5 mg/100 mL in 5 ea IV YEARLY 06/05/24 06/05/24 History mannitol 5 %-water intravenous piggybck (Reclast) Past Med/Surg History Problem List Restrictive lung disease Compression fracture of L2 Ex-smoker Pulmonary nodule Abnormal PFTs (pulmonary function tests) GCA (giant cell arteritis) History of temporal artery biopsy (07/13/23) Left Temporal Artery Biopsy(Left) - Kishan Muller, , FACS Lumbar disc herniation with radiculopathy Foot drop, left (Acute) Acute lumbar radiculopathy (Acute) 11/30/22 Multiple pulmonary nodules SVT (supraventricular tachycardia) follows with [place] cardiology Nephrolithiasis Cholelithiasis 05/25/22 Encounter for pre-operative examination Amaurosis fugax of left eye reason for scheduled temporal biopsy--had carotid doppler, head MRA, ECHO , holter (all were unremarkable) BPH (benign prostatic hyperplasia) Lumbar radiculopathy (Acute) Back pain Hip pain BPPV (benign paroxysmal positional vertigo) (Acute) Elevated PSA Anemia (Chronic) Hypertension (Chronic) Hypothyroidism (Chronic) Hypercholesterolemia (Chronic) History of laminectomy History of lumbar vertebral fusion Medical History Chronic back pain Compression fracture of L2 reason for upcoming sx 06/04/24 Giant cell arteritis hx, gets weekly injection to help with this History of anemia History of basal cell carcinoma of skin History of COVID-19 Diagnosed via home test 04/07/22--mild symptoms, no symptoms now History of left foot drop "no current issues per pt, had in the past due to surgery" History of renal stone Hypercholesteremia Hypertension Hypothyroidism Macular degeneration of left eye Polymyalgia rheumatica SVT (supraventricular tachycardia) follows with [place] cardiology Vertigo hx Surgical History History of appendectomy History of basal cell carcinoma (BCC) excision History of cataract surgery bilateral History of colonoscopy History of cystoscopy w/laser destruction kidney stone and stent placement; 05/10/22: LMA#5. History of hernia repair x2 on right side History of lumbar spinal fusion x2--12/02/22 Dr. Moya @ [facility] and 2000 History of open reduction and internal fixation (ORIF) procedure (~09/08/01) left wrist History of temporal artery biopsy History of tonsillectomy and adenoidectomy Hx laparoscopic cholecystectomy (05/27/22) Laparoscopic Cholecystectomy with Cholangiogram - Phu Arreguin MD, FACS S/P laparoscopic hernia repair left Family History Mother Heart disease Stroke syndrome Father Heart disease Myocardial infarction Sister Kidney disease Grandfather Heart disease Unknown Heart disease Other No family history of adverse response to anesthesia Denies family history of Ovarian cancer Prostate cancer Breast cancer Colorectal cancer Social History Smoking Status: Former smoker Tobacco Type: Cigarettes Age Quit Using Tobacco: 33; Smoking End Date: 11/02/82; Second Hand Exposure: No; Do You Dip or Chew Tobacco: No (quit years ago; advised); Tobacco Cessation Education Requested by Patient: No Hx Alcohol Use: Yes Alcohol type: beer Alcohol Intake Frequency: Monthly or Less Hx Substance Use: No Preferred Language: Montserratian Communication Ability: Effective Visual Impairment: No Limitations Hearing Ability: Normal Animal Care Giver Required: No Beliefs That Will Affect Care: None marital status: Current Living Situation: Spouse current occupational status: retired Other Information That Helps Us Care for You: No Feels Safe at Home: Yes Safety Concerns: Feels Safe At This Time Childhood Exposure to Second-Hand Smoke: Yes Diet: regular caffeine: Yes during the past year weight has: remained stable Dental Care, Regularly: Yes Physical Activity Frequency: Daily Seatbelt Use: always Sunscreen Use: Yes Assistive Devices: Hearing Aid - Bilateral Assistive Devices Comment: will not wear DOS Physical Exam Physical Exam: Patient is alert and oriented Heart regular in rhythm Lungs clear Results & Data Results & Data Vital Signs (Past 12 Hours) Vital Signs Temp Pulse Resp BP Pulse Ox O2 Del Method 06/05/24 06:30 36.6 C 74 18 142/86 H 97 Room Air
[2024-06-05] MEDS ORDERED: FLUMAZENIL 0.1 MG/1 ML 10 ML VIAL IV PRN (08:10)
[2024-06-05] MEDS ORDERED: NALOXONE HCL 0.4 MG/1 ML VIAL/CARP IV PRN ×2 (08:10→12:09)
[2024-06-05] MEDS ORDERED: HYDROmorphone INJ 1 MG/ML SYRINGE IV PRN ×2 (08:10→12:09)
[2024-06-05] MEDS ORDERED: LABETALOL HCL IV 5 MG/ML 20ML IV PRN (08:10)
[2024-06-05] MEDS ORDERED: ONDANSETRON INJ 2 MG/ML 2 ML VIAL IV PRN ×2 (08:10→12:09)
[2024-06-05] MEDS ORDERED: ePHEDrine sulfate 50 MG/ML AMP IV PRN (08:10)
[2024-06-05] MEDS: CLINDAMYCIN/D5W 900 MG/50 ML BAG IV SCH (08:10)
[2024-06-05] MEDS ORDERED: PROMETHAZINE HCL 6.25 MG in SODIUM CHLORIDE 0.9% 50 ML IV PRN (08:10)
[2024-06-05] MEDS ORDERED: ATROPINE SULFATE 0.1 MG/ML 10ML SYR IV PRN (08:10)
[2024-06-05] MEDS ORDERED: fentaNYL citrate PF 100 MCG/2 ML VIAL IV PRN (08:10)
[2024-06-05] MEDS ORDERED: HYDROmorphone INJ 2 MG/ML SYR/VIAL ONE (08:30)
[2024-06-05] MEDS ORDERED: PHENYLEPHRINE 100MCG/ML 10ML SYR IV ONE (08:43)
[2024-06-05] MEDS ORDERED: ePHEDrine sulfate 50 MG/ML AMP ONE (08:43)
[2024-06-05] MEDS ORDERED: PHENYLEPHRINE HCL 10 MG/ML VIAL ONE (08:43)
[2024-06-05] MEDS: BUPIVACAINE/EPINEPHRINE 0.5% MPF 1:200,000 30 ML VIAL ONE ×2 (08:58)
[2024-06-05] MEDS ORDERED: GLYCOPYRROLATE 0.2 MG/ML VIAL ONE (09:14)
[2024-06-05] MEDS: FLOSEAL HEMOSTATIC MATRIX 10ML TOP ONE (10:05)
[2024-06-05] MEDS ORDERED: SUGAMMADEX SODIUM 200 MG/2 ML VIAL IV ONE (10:05)
[2024-06-05] MEDS: IOPAMIDOL INJ 61% 15 ML VIAL INJ ONE (10:08)
--- NOTE | 2024-06-05 10:15 | Operative Report ---
Post Operative Report Pre & Post Diagnosis Operation Date: 06/05/24 07:45 Pre-Op Diagnosis: 3 column fracture of L2 with instability Post-Op Diagnosis: Same I identified the patient and participated in the time-out.: Yes Procedure Operation Date: 06/05/24 07:45 Actual Procedures #1 removal of posterior instrumentation L4-S1. #2 exploration of fusion L4-S1. #3 kyphoplasty of the L2 vertebral body. #4 revision posterior spinal fusion L1-L4. #5 placement posterior segmental instrumentation T12-S1. #6 placement infuse collagen sponge combined with Koros bone graft in the posterior gutters T12-L4. Surgeon Renard Moya, DO Behavioral Health Tech Karla Crespo Estimated Blood Loss 350 Findings Consistent with Post-Op Diagnosis Specimens None Indications This is a 74-year-old male well-known to me the presents to the office with the above-mentioned diagnosis. Due to the lumbar instability and severe pain he is here for surgical invention. Description of Procedure Patient was met with identified informed consent obtained. Patient was then taken to the operative suite underwent intubation placed in a prone position on the Oliverio table atop the Naman frame. All bony promises well-padded eyes inspected to ensure no external pressure placed upon them. This point the lumba r spine was prepped and draped in normal sterile fashion. Sharp dissection with the assistance of Bovie cautery down to and exposing the lamina and transverse processes of T12 L1-L2-L3 and the instrumentation at L4-L5 and S1 levels bilaterally. I then proceeded to move the hardware bilaterally at 4 L5 and S1. I explored the fusion mass noting it to be maturing. I then performed a kyphoplasty of the L2 vertebral body to assist in its alignment and stabilization. 2 Kyphon working cannulas were placed into the vertebral body of L2 sequentially inflated. The prescription was removed followed by placement of approximately 4 cc of Kyphon cement demonstrating excellent interdigitation and fill. This was followed by placement of pedicle screws bilaterally. Pedicle screws were then placed in T12-L1 L3-L4 and S1 bilaterally with assistance of fluoroscopy and appropriate size deonna cut contoured and placed. It was locked in a position bilaterally. The transverse processes of T12-L1 L2-L3-L4 burred to subcortical bleeding bone. Infuse collagen sponge combined with Koros was placed in the posterior gutters. 15 round YESSICA drain inserted. The incision was then closed with 1 Vicryl to fascia 2-0 Vicryl subcutaneously and 4 Monocryl for final skin closure. Steri-Strips sterile dressing placed. Patient waken taken to PACU in stable condition. Please note spinal cord monitoring was utilized at the procedure no changes noted. Karla Crespo was present at the entire surgery and while the patient positioning complex portions of the surgery and fascial closure. Im ordering 20 grams of Triple [place] Collagen Powder ([id number]) to treat an incision wound that was caused by a spine procedure. The incision is approximately 2 cm(W) x 4 cm(L) into the joint (D) in size and is a full thickness wound. Triple [place] collagen comes in 1 gram packets so 20 packets were ordered. Given the size of the wound, with light to moderate exudate I chose to order a 20 day supply. The patient will be provided instructions for proper application of the collagen wound kit. The patient will be asked to apply the collagen powder daily and then cover it with sterile dressings dispensed. Collagen was selected as I expect the collagen to attract monocytes and fibroblasts, act as a sacrificial substrate for MMPs, and ultimately proved a matrix for tissue and vessel growth. The collagen will act as a primary dressing in this scenario. It is medically necessary for proper healing of these wounds to improve bioavailability and contact with each wound surface, this is also to help prevent infection of wounds and promote healing ultimately leading to a better healing outcome and limit the risk of infection. I attest to the content of the Intraoperative Record and any orders documented therein. Any exceptions are noted below.
--- NOTE | 2024-06-05 10:30 | Fluoroscopy Report ---
FL lumbar spine 2-3V CLINICAL HISTORY: L2 KYPHO T12-L4 FUSION L4-S1 HW REMOVAL COMPARISON STUDY: MR lumbar spine 05/18/2024 FLUOROSCOPY TIME: 105.1 seconds FLUOROSCOPY IMAGES: 4 EXPOSURE DOSE: 70.27 mGy FINDINGS: Posterior interbody deonna and screw fusion hardware is noted at C6 levels which appears to in volve L1-S1 with L4-L5 and L5 discectomy and L2 kyphoplasty. The imaged hardware appears intact. Note that the images were submitted following completion of the surgery. No unexpected opaque foreign bod ies identified IMPRESSION: Fluoroscopic assistance as above. ACT 112: Negative or not required by law. Electronically signed by: Hiren Muñoz M.D. 06/05/2024 10:27 AM
--- NOTE | 2024-06-05 11:46 | Anesthesiology Progress Note ---
Date of Service June 05, 2024 Anesthesia Post Procedure Vital Signs Vital Signs: Temp Pulse Pulse Resp BP BP Pulse Ox 06/05/24 11:35 36.5 C 91 H 10 L 125/65 99 06/05/24 11:25 36.5 C 84 9 L 122/83 119/69 99 06/05/24 11:15 88 10 L 129/75 126/88 99 06/05/24 11:05 98 H 12 134/70 136/75 97 06/05/24 10:55 97 H 14 136/72 144/81 H 100 06/05/24 10:45 36.6 C 99 H 12 142/87 H 99 06/05/24 06:30 36.6 C 74 18 142/86 H 97 O2 Del Method O2 Flow Rate 06/05/24 11:35 Nasal Cannula 2 06/05/24 11:25 Nasal Cannula 2 06/05/24 11:15 Nasal Cannula 3 06/05/24 11:05 Room Air 06/05/24 10:55 Oxymask 5 06/05/24 10:45 Oxymask 7 06/05/24 06:30 Room Air Pain Intensity Lower Back: Pain Intensity: 0 Transfer of Care Handoff Completed per policy Notes Mental Status: alert / awake / arousable Patient Amnestic to Procedure: Yes Nausea / Vomiting: adequately controlled Pain: adequately controlled Airway Patency, RR, SpO2: stable & adequate BP & HR: stable & adequate Hydration State: stable & adequate Anesthetic Complications: no major complications apparent
[2024-06-05] MEDS ORDERED: traMADol HCL 50 MG TABLET PO PRN (12:09)
[2024-06-05] MEDS ORDERED: bisacodyL 10 MG SUPP PR PRN (12:09)
[2024-06-05] MEDS ORDERED: ONDANSETRON 4 MG OD TAB PO PRN (12:09)
[2024-06-05] MEDS ORDERED: FAMOTIDINE 20 MG TAB PO PRN (12:09)
[2024-06-05] MEDS ORDERED: SOD PHOSPHATE/SOD BIPHOSPHATE ENEMA 132 ML BTL PR PRN (12:09)
[2024-06-05] MEDS ORDERED: MAGNESIUM HYDROXIDE SUSP 30 ML UDC PO PRN (12:09)
[2024-06-05] MEDS ORDERED: HYDROmorphone INJ 0.5 MG/0.5 ML SYR IV PRN (12:09)
[2024-06-05] MEDS ORDERED: PROMETHAZINE 12.5 MG/50.5 ML BAG IV PRN (12:09)
[2024-06-05] MEDS ORDERED: hydrOXYzine HCl 25 MG TAB PO PRN (12:09)
[2024-06-05] MEDS ORDERED: diphenhydrAMINE Capsule 25 MG CAP PO PRN (12:09)
[2024-06-05] MEDS ORDERED: DO NOT ADMINISTER FLU VACCINE PRN (12:09)
[2024-06-05] MEDS ORDERED: ACETAMINOPHEN 1,000 MG/100 ML VIAL IV PRN (12:09)
[2024-06-05] MEDS ORDERED: oxyCODONE HCL IR 5 MG TAB (IMMEDIATE RELEASE) PO PRN (12:09)
[2024-06-05] MEDS ORDERED: ALUMINUM/MAGNESIUM SUSP 30 ML UDC PO PRN (12:09)
[2024-06-05] MEDS ORDERED: LORazepam 2 MG/1 ML VIAL IV PRN (12:09)
[2024-06-05] MEDS ORDERED: LORazepam 0.5 MG TAB PO PRN (12:09)
[2024-06-05] MEDS ORDERED: METOCLOPRAMIDE HCL INJ 5 MG/ML 2 ML VIAL IV PRN (12:09)
[2024-06-05] MEDS ORDERED: DO NOT ADMINISTER PNEUMOCOCCAL VACCINE PRN (12:09)
[2024-06-05] MEDS: FAMOTIDINE/PF 20 MG/2 ML VIAL IV ONE (12:15)
--- NOTE | 2024-06-05 17:42 | Hospitalist Consultation ---
Date of Consultation June 05, 2024 Assessment & Plan (1) Compression fracture of L2: Patient s/p removal of posterior instrumentation L4-S1, exploration of fusion L4-S1, kyphoplasty of L2 vertebral body, revision posterior spinal fusion L1-L4, placement posterior segmental instrumentation T12-S1, placement infuse collagen sponge combined w/ Koros bone graft in posterior gutters T12-L4. Pain management per primary team Bowel regimen per primary team diet per primary team DVT prophylaxis per primary team AM CBC, BMP (2) Hypertension: Patient on HCTZ 12.5mg PO daily and ibesartan 300mg PO daily (on Losartan 100mg inpatient) Hold BP medications due to patient being low normotensive - will resume in AM if necessary. Plan Chronic conditions: HLD: continue statin Hypothyroidism: continue Synthroid Carotid plaque: continue ASA GCA: follows with rhemuatology outpatient, does not resume his medication for this disease until beginning of June due to recent surgery Disposition: continued inpatient stay per primary team Code status: full diet: regular DVT prophylaxis: SCD's. Thank you for this consult. We will continue to follow along. Please reach out with questions or concerns. Supervising Physician Co-Signing Physician Notes During face to face encounter, I obtained a history and physical examination, discussed hospital stay with patient and plan of care with patient. I discussed plan of care with KRISTA Dugan. I reviewed above note and agree with it except for the following: Patient seen at bedside. Patient is her for a kyphoplasty of L2. Patient was consulted with medicine for medical management. Resume home meds for hypertension. History of Present Illness Reason for Consultation: medical management Attending Physician: Renard Moya, History of Present Illness This is a 74 year old gentleman with past medical history of hyperlipidemia, hypothyroidism, hypertension, giant cell arteritis, anemia who presented to the hospital to undergo surgery with Dr. Moya on 06/05. Patient was eating dinner at time of encounter. Reports to be doing well following his surgery today. He denied any acute complaints. Reports no history of CVA or [place]. He follows closely with rheumatology for his GCA and already has an outline on when to resume his medication for this. He is compliant with his medications at home and follows routinely with his PCP.His last echo was in 2021 that revealed mild mitral regurgitation but patient is asymptomatic. He follows with pulmonary for a nodule that was found on a chest CT in 2022. His statin was recently increased to 40mg. Last carotid doppler was in 2021 that did reveal some plaque with possible repeat in 2024. Patient tells me he has no symptoms of BPH and is unsure why that is in his chart. Vital signs currently stable and WNL. Allergies Allergy/AdvReac Type Severity Reaction Status Date / Time Influenza Virus Vaccines Allergy Severe THROAT Verified 06/05/24 06:41 SWELL, LIPS SWELLING Penicillins Allergy Severe SWELLING,HIVES Verified 06/05/24 06:41 RASH morphine AdvReac Severe SEVERE Verified 06/05/24 06:41 HEADACHE and Nausea lisinopril AdvReac Intermediate COUGH Verified 06/05/24 06:41 Home Medications Medication Instructions Recorded Confirmed Type levothyroxine 150 mcg tablet 150 mcg PO QAM #90 tabs 06/27/23 06/05/24 Rx (Synthroid) vit C 250 mg-vit E 90 mg-zinc 40 1 tab PO BID 07/11/23 06/05/24 History mg-copper 1 [id number] capsule (PreserVision AREDS-2) hydrochlorothiazide 12.5 mg tablet 12.5 mg PO QAM #90 tabs 04/18/24 06/05/24 Rx irbesartan 300 mg tablet 300 mg PO QAM #90 tabs 04/18/24 06/05/24 Rx tocilizumab 162 mg/0.9 mL 162 mg (0.9 mL) subcut Q7D #4 mL 05/11/24 06/05/24 Rx subcutaneous pen injector (Actemra ACTPen) aspirin 81 mg tablet,delayed 81 mg PO QAM 05/28/24 06/05/24 History release rosuvastatin 40 mg tablet 40 mg PO HS 05/28/24 06/05/24 History zoledronic acid 5 mg/100 mL in 5 ea IV YEARLY 06/05/24 06/05/24 History mannitol 5 %-water intravenous piggybck (Reclast) Patient History Medical History Chronic back pain Compression fracture of L2 reason for upcoming sx 06/04/24 Giant cell arteritis hx, gets weekly injection to help with this History of anemia History of basal cell carcinoma of skin History of COVID-19 Diagnosed via home test 04/07/22--mild symptoms, no symptoms now History of left foot drop "no current issues per pt, had in the past due to surgery" History of renal stone Hypercholesteremia Hypertension Hypothyroidism Macular degeneration of left eye Polymyalgia rheumatica SVT (supraventricular tachycardia) follows with [facility] Vertigo hx Surgical History History of appendectomy History of basal cell carcinoma (BCC) excision History of cataract surgery bilateral History of colonoscopy History of cystoscopy w/laser destruction kidney stone and stent placement; 05/10/22: LMA#5. History of hernia repair x2 on right side History of lumbar spinal fusion x2--12/02/22 Dr. Moya @ [facility] and 2000 History of open reduction and internal fixation (ORIF) procedure (~09/08/01) left wrist History of temporal artery biopsy History of tonsillectomy and adenoidectomy Hx laparoscopic cholecystectomy (05/27/22) Laparoscopic Cholecystectomy with Cholangiogram - Phu Arreguin MD, FACS S/P laparoscopic hernia repair left Family History Mother Heart disease Stroke syndrome Father Heart disease Myocardial infarction Sister Kidney disease Grandfather Heart disease Unknown Heart disease Other No family history of adverse response to anesthesia Denies family history of Ovarian cancer Prostate cancer Breast cancer Colorectal cancer Social History Smoking Status: Former smoker Tobacco Type: Cigarettes Age Quit Using Tobacco: 33; Smoking End Date: 11/02/82; Second Hand Exposure: No; Do You Dip or Chew Tobacco: No (quit years ago; advised); Tobacco Cessation Education Requested by Patient: No Hx Alcohol Use: Yes Alcohol type: beer Alcohol Intake Frequency: Monthly or Less Hx Substance Use: No Preferred Language: Thai Communication Ability: Effective Visual Impairment: No Limitations Hearing Ability: Normal Behavioral Medical Director Required: No Beliefs That Will Affect Care: None marital status: Current Living Situation: Spouse current occupational status: retired Other Information That Helps Us Care for You: No Feels Safe at Home: Yes Safety Concerns: Feels Safe At This Time Childhood Exposure to Second-Hand Smoke: Yes Diet: regular caffeine: Yes during the past year weight has: remained stable Dental Care, Regularly: Yes Physical Activity Frequency: Daily Seatbelt Use: always Sunscreen Use: Yes Assistive Devices: Walker Assistive Devices Comment: will not wear DOS Review of Systems Review of Systems: All systems reviewed & are unremarkable except as noted in HPI & below Physical Exam Constitutional: WD/WN, vitals as above Respiratory: normal respiratory effort, lungs clear to auscultation Cardiovascular: RRR, no murmur, no edema Skin: no rashes, warm and dry Psychiatric: A+Ox3, euthymic affect Results & Data Results & Data Vital Signs (Past 12 Hours) Vital Signs Temp Pulse Pulse Resp BP BP Pulse Ox 06/05/24 15:02 36.5 C 88 16 112/74 98 06/05/24 14:10 36.6 C 76 18 107/65 95 06/05/24 13:04 37.2 C 84 18 102/67 99 06/05/24 12:35 36.5 C 85 16 108/69 96 06/05/24 12:21 36.7 C 78 16 146/91 H 97 06/05/24 12:17 06/05/24 11:55 36.5 C 87 12 120/71 94 06/05/24 11:45 36.5 C 87 8 L 133/78 100 06/05/24 11:35 36.5 C 91 H 10 L 125/65 99 06/05/24 11:25 36.5 C 84 9 L 122/83 119/69 99 06/05/24 11:15 88 10 L 129/75 126/88 99 06/05/24 11:05 98 H 12 134/70 136/75 97 06/05/24 10:55 97 H 14 136/72 144/81 H 100 06/05/24 10:45 36.6 C 99 H 12 142/87 H 99 06/05/24 06:30 36.6 C 74 18 142/86 H 97 O2 Del Method O2 Flow Rate 06/05/24 15:02 Room Air 06/05/24 14:10 Room Air 06/05/24 13:04 Nasal Cannula 2 06/05/24 12:35 Nasal Cannula 2 06/05/24 12:21 Nasal Cannula 2 06/05/24 12:17 Nasal Cannula 2 06/05/24 11:55 Nasal Cannula 2 06/05/24 11:45 Nasal Cannula 2 06/05/24 11:35 Nasal Cannula 2 06/05/24 11:25 Nasal Cannula 2 06/05/24 11:15 Nasal Cannula 3 06/05/24 11:05 Room Air 06/05/24 10:55 Oxymask 5 06/05/24 10:45 Oxymask 7 06/05/24 06:30 Room Air PG Care Time/CCT Total # of Minutes Spent Total Time Spent with Patient: Total time spent is greater than 50% in coordination of care (as documented) at patient's floor/unit and/or counseling patient: Coding Level of Care Code 13027 IN/OBS CONSULT LVL 3,45M Diagnoses Compression fracture of L2 S32.020A Primary hypertension I10 Hypertension type: primary hypertension (2) Hypertension Hypertension type: primary hypertension Qualified Code(s): I10 - Essential (primary) hypertension
[2024-06-05] MEDS: LACTATED RINGER'S 1,000 ML IV SCH (18:43)
[2024-06-05] MEDS: CLINDAMYCIN/D5W 600 MG/50 ML BAG IV SCH (18:58)
[2024-06-05] MEDS: DOCUSATE SODIUM/SENNA 50/8.6MG TAB PO SCH (20:14)
[2024-06-05] MEDS: CEROVITE ADV FORMULA TAB PO SCH (20:15)
[2024-06-05] MEDS: ROSUVASTATIN CALCIUM 20 MG TAB PO SCH (20:15)
[2024-06-06] MEDS: ACETAMINOPHEN 500 MG TAB PO PRN (00:05)
[2024-06-06] MEDS: LEVOTHYROXINE SODIUM 150 MCG TABLET PO SCH (04:16)
[2024-06-06] MEDS: POLYETHYLENE (MIRALAX) 17 GM PACK PO SCH (05:13)
[2024-06-06 06:41] LABS: Basophils # (auto) 0.06 K/uL (0.00-0.20); Basophils % (auto) 0.5 %; Eosinophils # (auto) 0.02 K/uL (0.00-0.50); Eosinophils % (auto) 0.2 %; Hematocrit (blood only) 30.6 % (42.0-52.0); Hemoglobin 10.2 g/dl (14.0-18.0); Immature Granulocytes # (auto) 0.05 K/uL (0.01-0.20); Immature Granulocytes % (auto) 0.4 %; Lymphocytes # (auto) 0.81 K/uL (1.20-3.40); Lymphocytes % (auto) 7.1 %; Mean Corpuscular Hemoglobin 29.7 pg (25.0-34.0); Mean Corpuscular Hgb Conc 33.3 g/dL (32.0-36.0); Mean Platelet Volume 11.4 fL (9.4-12.4); Monocytes # (auto) 0.71 K/uL (0.11-0.59); Monocytes % (auto) 6.2 %; Neutrophils # (auto) 9.81 K/uL (1.40-6.50); Neutrophils % (auto) 85.6 %; Platelet Count 167 K/uL (130-400); RDW Coefficient of Variation 14.3 % (11.5-14.5); RDW Standard Deviation 46.5 fL (36.4-46.3); Red Blood Count 3.44 M/uL (4.70-6.10); White Blood Count 11.46 K/ul (4.8-10.8)
[2024-06-06 06:51] LABS: BUN Creatinine Ratio 24.5 (10-20); Calcium 8.2 mg/dl (8.6-10.3); Creatinine Clr Calc Pharmacy 73.6 ml/min; Est GFR (African American) 92.2 ml/min; Est GFR (Non-African American) 79.6 ml/min; Potassium 4.6 mmol/L (3.5-5.1)
[2024-06-06] MEDS: hydroCHLOROthiazide 25 MG TAB PO SCH (08:24)
[2024-06-06] MEDS: LOSARTAN POTASSIUM 50 MG TAB PO SCH (08:25)
[2024-06-06] MEDS: ASPIRIN 81 MG ECTAB PO SCH (08:25)
[2024-06-06] MEDS: dexAMETHasone 6 MG in SYRINGE 0 ML IV SCH (08:25)
--- NOTE | 2024-06-06 10:39 | Orthopedic Progress Note ---
Date of Service June 06, 2024 Assessment & Plan (1) Compression fracture of L2: Plan: At this time we will continue physical therapy monitor his YESSICA output hopefully discharge home next few days. Admission and Anticipated Discharge Date Admission Date: June 05, 2024 Subjective Tuesday patient's back pain is controlled. He has been tolerating physical therapy and ambulating well. Physical Exam Physical Exam: On exam patient is up and ambulating. Distracted testing. Results & Data Vital Signs (Past 12 Hours) Vital Signs Temp Pulse Resp BP BP Pulse Ox O2 Del Method 06/06/24 07:28 36.7 C 61 17 108/66 99 Room Air 06/06/24 04:07 36.6 C 62 16 95/56 L 98 Room Air
--- NOTE | 2024-06-06 12:27 | Hospitalist Progress Note ---
Date of Service June 06, 2024 Assessment & Plan (1) Compression fracture of L2: Plan: Patient s/p removal of posterior instrumentation L4-S1, exploration of fusion L4-S1, kyphoplasty of L2 vertebral body, revision posterior spinal fusion L1-L4, placement posterior segmental instrumentation T12-S1, placement infuse collagen sponge combined w/ Koros bone graft in posterior gutters T12-L4. Pain management per primary team Bowel regimen per primary team diet per primary team DVT prophylaxis per primary team CBC/BMP reviewed 06/06: stable (2) Hypertension: Plan: Patient on HCTZ 12.5mg PO daily and ibesartan 300mg PO daily (on Losartan 100mg inpatient) Hold BP medications due to patient being low normotensive - will resume in AM if necessary. Plan Chronic conditions: HLD: continue statin Hypothyroidism: continue Synthroid Carotid plaque: continue ASA GCA: follows with rheumatology outpatient, does not resume his medication for this disease until beginning of June due to recent surgery Disposition: continued inpatient stay per primary team Code status: full diet: regular DVT prophylaxis: SCD's. We will continue to follow along. Please reach out with questions or concerns. Admission and Anticipated Discharge Date Admission Date: June 05, 2024 Subjective Patient seen and examined this morning. Patient is doing well. He was able to ambulate with PT this morning. He was sitting in his chair at time of encounter. Reported minimal back pain that he took tylenol for. Denied any additional complaints. Physical Exam 2 Constitutional: WD/WN, vitals as above Respiratory: normal respiratory effort, lungs clear to auscultation Cardiovascular: RRR, no murmur, no edema Skin: no rashes, warm and dry Psychiatric: A+Ox3, euthymic affect Results & Data Results & Data Vital Signs (Past 12 Hours) Vital Signs Temp Pulse Resp BP BP Pulse Ox O2 Del Method 06/06/24 07:28 36.7 C 61 17 108/66 99 Room Air 06/06/24 04:07 36.6 C 62 16 95/56 L 98 Room Air Laboratory Results 06/06/24 05:50 06/06/24 05:50 PG Care Time/CCT Total # of Minutes Spent Total Time Spent with Patient: Total time spent is greater than 50% in coordination of care (as documented) at patient's floor/unit and/or counseling patient: Coding Level of Care Code 59155 SUB INP/OBS CARE 2/35MIN Diagnoses Compression fracture of L2 S32.020A Primary hypertension I10 Hypertension type: primary hypertension (2) Hypertension Hypertension type: primary hypertension Qualified Code(s): I10 - Essential (primary) hypertension
[2024-06-06] MEDS ORDERED: Nursing to Pharmacy Communication SCH (17:45)
[2024-06-07 07:25] VITALS: BP 126/73; PULSE 76; RESP 18; TEMP 98.4; O2SAT 97
--- NOTE | 2024-06-07 08:42 | Discharge Summary ---
Date of Service June 07, 2024 Admission HPI Per Admitting Provider This is a 74-year-old male who presents for chronic persistent back and leg pain and failing course of nonoperative care is here for surgical intervention. Admission Exam (Per Admitting) Constitutional WD/WN, vitals as above Eyes normal visual shukla by confrontation ENMT external ear and nose normal, oropharynx normal Neck normal visual inspection Respiratory normal respiratory effort Cardiovascular Extremities: normal capillary refill Gastrointestinal (Abdomen) Inspection/Auscultation: abdomen normal to inspection Musculoskeletal Spine: + pain with thoraco-lumbar ROM Extremities: extremities normal to inspection and strength 5/5 throughout GAIT STOOPED Skin no rashes, warm and dry Neurologic normal touch/pain/proprioception and moves all extremities Psychiatric A+Ox3, euthymic affect Eye Contact: good eye contact Discharge Data Consultations 06/05/24 12:09 Consult Hospitalist Routine Procedures Performed Operation Date: 06/05/24 07:45 Actual Procedures s L2 Kyphoplasty(Not Applicable) - Renard Moya DO s L4-S1 Hardware Removal(Not Applicable) - Renard Moya DO p T12 to L4 Decompression and Fusion, Spinal Cord Monitoring(Not Applicable) - Renard Moya DO Hospital Course (1) Compression fracture of L2: Patient is being discharged home on postoperative day 2 status post T12-L4 fusion secondary to L1-L2 fracture. He send great. He is up and ambulatory. No pain like he had preoperatively. He had a bowel movement. Lab values are stable. Yesterday in physical therapy [place] 250 feet. YESSICA drain output last shift was 160 cc. He is therefore being discharged home with YESSICA drain intact and instructions on follow-up for this. Discharge Instructions ACTIVITY RECOMMENDATIONS: SELF CARE INSTRUCTIONS AFTER THORACIC/LUMBAR FUSIONS 1. You may walk to your tolerance. It is good exercise for your legs and back. Expect some back and intermittent leg aches and pains. 2. You may perform "counter-top" level activities (make a sandwich, georges with a project, etc.). 3. No bending or lifting of more than 10 pounds or back twisting of any nature (roll like a log when turning in bed). 4. You may ride in a car for 20-30 minutes at a time. No driving until after your first visit with your doctor. 5. Frequent changes of position and restricting sitting to 30 minutes at a time will help limit the amount of back spasms and stiffness you may experience. 6. You may discontinue the use of ambulatory aids (cane, crutches, etc.) once your strength and confidence allow. 7. You may executive administrator the shower and let water strike your incision when you arrive home at least once daily. Do not take a tub bath, sit in a hot tub or go into a swimming pool until after your first recheck in the office. SPECIAL CARE INSTRUCTIONS: VERY IMPORTANT TO READ AND REVIEW A. Your surgical incision has been closed with a cosmetic suture under the skin that will dissolve in about 6 weeks. In 14 days, you can use a pair of clean scissors and cut the suture that is left outside of the skin at the ends of your incision. 1. The small skin tapes can be removed 7 days after surgery if they have not fallen off by that point. 2. You may keep the wound open to air as much as possible to promote healing after post-op day number 5 unless told otherwise by your doctor. 3. If you think the wound looks like it is becoming infected (redness or worsening drainage) and/or you are experiencing fever, chill or worsening back pain and muscle spasms, contact the office so that we may evaluate you as soon as possible. B. Complications are uncommon, but please contact us if you have any signs or symptoms of: 1. wound infection (fever higher than 102.5 degrees F, redness, separation of wound, drainage, or increasing pain from the incision) 2. blood clots in legs (pain, swelling, redness and warmth in legs) 3. urinary tract infection (fever higher than 102.5 degrees F, burning upon urination or increased frequency of urination) 4. nerve problems (inability to walk on your toes or heels, numbness, loss of bowel or bladder control) 5. any other symptoms that concern you C. Please call the office at if you have any concerns or questions about your operation or recovery. D. No smoking! Smoking drastically decreases the chance of a solid fusion. E. Do not take any anti-inflammatory medications (Indocin, Advil, Motrin, Aspirin, Naprosyn, etc.) as these may inhibit the chance of a solid fusion. Tylenol is okay to take for pain. MANAGING PAIN AFTER SPINAL SURGERY 1. Narcotic medication is intended for short-term use and will be provided for surgical pain. Surgical pain usually lasts for a period of 4-6 weeks. Narcotic medication includes Percocet, Vicodin, Darvocet, Tylenol #3 or Lortab. 2. Longer-term pain is more appropriately treated with non-narcotic medication such as Tylenol ES. 3. Muscle spasm is not appropriately treated with narcotics. Muscle relaxers such as Soma, Flexeril or Skelaxin can be used along with Tylenol ES. 4. Remember that we all live with some "aches and pains". This is not unusual or uncommon after an injury or as we get older. a. Back pain is expected and may include muscle spasms for 4 to 6 weeks after surgery. The pain should gradually improve. If the pain worsens for no apparent reason, please contact the office. b. Intermittent leg pain may also be experienced and should not be concerned about unless it worsens for no apparent reason. If so, please contact the office. 5. We will provide appropriate medication within the normal guidelines of their prescribed use. We will also be very cautious and aware of potential abuse and extended duration of patients' medication needs. a. Pain medications are for your comfort and to assist with sleep and rest so that the tissue can heal. They are not provided in order to return to normal activity and should not be used through the day. To do so or worsening pain at night can result from ongoing tissue damage and development of tolerance to the prescribed medicine. 6. Please allow 2-3 days to process refills. Prescriptions will not be mailed but must be picked up at the office. FOLLOW UP VISIT: Keep your scheduled follow-up appointment. Any questions, please call the office at .
== END 2024-06-07 12:22 | disposition home or self-care (01) | DRG 460 ==
LOC: ASU 06:13 → 3E 10:20

== ENCOUNTER 2024-06-13 08:03 | Observation (INO) ==
--- NOTE | 2024-06-13 08:32 | Emergency Department Note ---
Impression & Plan Back pain ADMIT ED Provider Note HPI: History obtained from patient. The patient is a 74-year-old gentleman who presents the emergency department with a chief complaint of back pain. Patient states that he had a spinal fusion performed from T11-S1 with Dr. Moya on Tuesday 06/05. Patient states that he seemed to be recovering decently until this past Tuesday when he began to have some worsening lower back pain. Patient states last night at around 11 PM the back pain became severe and was refractory to the oxycodone he was taking at home as needed for pain. Patient states the pain is in the bilateral lower back and he has not been able to move his legs much secondary to pain so he is unsure whether or not it is radiating down his legs. Patient states he did have an episode of vomiting shortly prior to arrival to the ER. He denies any abdominal pain. On arrival here to the ED, the patient is mildly hypotensive at 95/61, he is otherwise hemodynamically stable and saturating well on room air. Patient is afebrile on arrival. ROS: - Per HPI Differential Diagnosis: Postsurgical pain, lumbar hematoma, postoperative infection/abscess, cellulitis, fracture, hardware failure, amongst other potential pathologies. *Outpatient medications and allergy history reviewed. PE: General: Alert HEENT: Normocephalic, trachea midline Eyes: Extraocular eye movement is intact, no scleral erythema Pulmonary: Clear to auscultation bilaterally, no wheezing Cardio: Regular rate and rhythm GI: Abdomen is soft to palpation : No suprapubic tenderness MSK: No evidence of trauma or malformation of the extremities, no edema Skin: No evidence of rash, surgical wounds to the lumbar spine area are without any surrounding erythema, there is no purulent drainage, YESSICA drain in place Neuro: Alert, no focal deficits, 5 out of 5 strength with dorsiflexion and plantarflexion of the bilateral lower extremities Psychiatric: Cooperative INDEPENDENT INTERPRETATIONS: court recording monitor: (As interpreted by myself): - An order was placed for continuous cardiac monitoring - Patient was noted to be in sinus rhythm with a rate of 95 Interventions provided in ED: -IV Dilaudid, IV Zofran, IV fluid bolus Medical Decision Making: IV was established and lab work obtained, patient was placed on diagnostic cardiac sonographer. Lab work shows a leukocytosis of 17.78, hemoglobin is slightly low at 12.7, platelet count is normal, CMP does not show any evidence of any critical findings, urinalysis shows trace ketones and trace leukocyte esterase but no obvious infection. Viral panel testing was obtained and is negative. I discussed the patient's presentation with the on-call spinal surgeon who performed the patient surgery, Dr. Moya, he recommended obtaining x-ray imaging which was done and shows no evidence of any acute fractures or hardware failure. Again discussed the patient's case with Dr. Moya, the patient did spike a fever here in the ER sometime after his initial arrival, given this blood cultures were ordered and the patient was given a dose of IV Tylenol. I did order MRI imaging of the lumbar spine following conversations with Dr. Moya for further evaluation of possible infectious etiology. At this time Dr. Moya requested that we hold off on antibiotics until the results of MRI imaging can be obtained and the patient will be admitted to his service for observation for pain control and further management. Patient is in agreement to this plan and the patient was placed for admission in stable condition. Consultants/Discussions held with other healthcare providers: -Orthopedic/spinal surgery, Dr. Moya Disposition discussion held by myself with: -Patient Diagnosis: 1. Intractable lower back pain status post lumbar fusion surgery, acute 2. Fever of unknown origin, acute 3. Leukocytosis, acute Disposition: Admission José Nieves DO Emergency Medicine Past Med/Surg History Problem List Back pain (Acute) Restrictive lung disease Compression fracture of L2 Ex-smoker Pulmonary nodule Abnormal PFTs (pulmonary function tests) GCA (giant cell arteritis) History of temporal artery biopsy (07/13/23) Left Temporal Artery Biopsy(Left) - Kishan Muller DO, FACS Lumbar disc herniation with radiculopathy Foot drop, left (Acute) Acute lumbar radiculopathy (Acute) 11/30/22 Multiple pulmonary nodules SVT (supraventricular tachycardia) follows with [place] [facility] Nephrolithiasis Cholelithiasis 05/25/22 Encounter for pre-operative examination Amaurosis fugax of left eye reason for scheduled temporal biopsy--had carotid doppler, head MRA, ECHO , holter (all were unremarkable) BPH (benign prostatic hyperplasia) Lumbar radiculopathy (Acute) Back pain Hip pain BPPV (benign paroxysmal positional vertigo) (Acute) Elevated PSA Anemia (Chronic) Hypertension (Chronic) Hypothyroidism (Chronic) Hypercholesterolemia (Chronic) History of laminectomy History of lumbar vertebral fusion Medical History Chronic back pain Compression fracture of L2 reason for upcoming sx 06/04/24 Giant cell arteritis hx, gets weekly injection to help with this History of anemia History of basal cell carcinoma of skin History of COVID-19 Diagnosed via home test 04/07/22--mild symptoms, no symptoms now History of left foot drop "no current issues per pt, had in the past due to surgery" History of renal stone Hypercholesteremia Hypertension Hypothyroidism Macular degeneration of left eye Polymyalgia rheumatica SVT (supraventricular tachycardia) follows with [place] [facility]ology Vertigo hx Surgical History History of appendectomy History of basal cell carcinoma (BCC) excision History of cataract surgery bilateral History of colonoscopy History of cystoscopy w/laser destruction kidney stone and stent placement; 05/10/22: LMA#5. History of hernia repair x2 on right side History of lumbar spinal fusion x2--12/02/22 Dr. Moya @ [facility] and 2000 History of open reduction and internal fixation (ORIF) procedure (~09/08/01) left wrist History of temporal artery biopsy History of tonsillectomy and adenoidectomy Hx laparoscopic cholecystectomy (05/27/22) Laparoscopic Cholecystectomy with Cholangiogram - Phu Arreguin MD, FACS S/P laparoscopic hernia repair left Family History Mother Heart disease Stroke syndrome Father Heart disease Myocardial infarction Sister Kidney disease Grandfather Heart disease Unknown Heart disease Other No family history of adverse response to anesthesia Denies family history of Ovarian cancer Prostate cancer Breast cancer Colorectal cancer Social History Smoking Status: Former smoker Tobacco Type: Cigarettes Age Quit Using Tobacco: 33; Second Hand Exposure: No; Do You Dip or Chew Tobacco: No (quit years ago; advised); Hx Alcohol Use: Yes Alcohol type: beer Alcohol Intake Frequency: Monthly or Less Hx Substance Use: No Preferred Language: Vietnamese Communication Ability: Effective Visual Impairment: No Limitations Hearing Ability: Normal Surveillance Camera Technician Required: No Beliefs That Will Affect Care: None marital status: Current Living Situation: Spouse current occupational status: retired Feels Safe at Home: Yes Childhood Exposure to Second-Hand Smoke: Yes Diet: regular caffeine: Yes during the past year weight has: remained stable Dental Care, Regularly: Yes Physical Activity Frequency: Daily Seatbelt Use: always Sunscreen Use: Yes Assistive Devices: Walker Allergies Allergies Allergy/AdvReac Type Severity Reaction Status Date / Time Influenza Virus Vaccines Allergy Severe THROAT Verified 06/05/24 06:41 SWELL, LIPS SWELLING Penicillins Allergy Severe SWELLING,HIVES Verified 06/05/24 06:41 RASH morphine AdvReac Severe SEVERE Verified 06/05/24 06:41 HEADACHE and Nausea lisinopril AdvReac Intermediate COUGH Verified 06/05/24 06:41 Home Meds Home Medications Medication Instructions Recorded Confirmed vit C 250 mg-vit E 90 mg-zinc 40 1 tab PO BID 07/11/23 06/13/24 mg-copper 1 [id number] capsule (PreserVision AREDS-2) aspirin 81 mg tablet,delayed 81 mg PO QAM 05/28/24 06/13/24 release rosuvastatin 40 mg tablet 40 mg PO HS 05/28/24 06/13/24 zoledronic acid 5 mg/100 mL in 5 ea IV YEARLY 06/05/24 06/13/24 mannitol 5 %-water intravenous piggybck (Reclast) oxycodone 5 mg tablet 5 mg PO Q4H PRN Severe Pain (Scale 06/13/24 06/13/24 Score 7-10) tramadol 50 mg tablet 50 mg PO Q6H PRN Moderate Pain 06/13/24 06/13/24 (Scale Score 5-6) Previous Rx's Medication Instructions Recorded levothyroxine 150 mcg tablet 150 mcg PO QAM #90 tabs 06/27/23 (Synthroid) hydrochlorothiazide 12.5 mg tablet 12.5 mg PO QAM #90 tabs 04/18/24 irbesartan 300 mg tablet 300 mg PO QAM #90 tabs 04/18/24 tocilizumab 162 mg/0.9 mL 162 mg (0.9 mL) subcut Q7D #4 mL 05/11/24 subcutaneous pen injector (Actemra ACTPen) Results & Data (ED) Vital Signs Vital Signs - 24 hr 06/13/24 08:09 06/13/24 09:21 06/13/24 09:23 Temperature 36.5 C Temperature Source Oral Pulse Rate 84 91 H 90 Pulse Rate [Apical] Pulse Rate from SpO2 Sensor Respiratory Rate 22 16 Blood Pressure 95/61 L Blood Pressure [Right Arm] Blood Pressure Mean 72 Blood Pressure Mean [Right Arm] Pulse Oximetry 97 Oxygen Delivery Method Room Air Oxygen Flow Rate Sepsis Recent Fever Within 48 Hours No Sepsis New/Unexplained Change in Mental Status N/A Sepsis Action Taken by Nursing No Action Required 06/13/24 09:30 06/13/24 09:35 06/13/24 09:42 Temperature Temperature Source Pulse Rate 103 H Pulse Rate [Apical] Pulse Rate from SpO2 Sensor Respiratory Rate 18 Blood Pressure 107/77 Blood Pressure [Right Arm] Blood Pressure Mean 81 Blood Pressure Mean [Right Arm] Pulse Oximetry 96 96 Oxygen Delivery Method Nasal Cannula Oxygen Flow Rate 2 Sepsis Recent Fever Within 48 Hours Sepsis New/Unexplained Change in Mental Status Sepsis Action Taken by Nursing 06/13/24 10:00 06/13/24 10:21 06/13/24 10:31 Temperature 38.8 C H Temperature Source Oral Pulse Rate 100 H 113 H Pulse Rate [Apical] Pulse Rate from SpO2 Sensor Respiratory Rate 19 18 Blood Pressure 123/74 117/75 Blood Pressure [Right Arm] Blood Pressure Mean 96 93 Blood Pressure Mean [Right Arm] Pulse Oximetry 98 95 Oxygen Delivery Method Oxygen Flow Rate Sepsis Recent Fever Within 48 Hours Sepsis New/Unexplained Change in Mental Status Sepsis Action Taken by Nursing 06/13/24 10:33 06/13/24 12:50 Temperature Temperature Source Pulse Rate 114 H Pulse Rate [Apical] 107 H Pulse Rate from SpO2 Sensor 114 H Respiratory Rate 26 H 20 Blood Pressure Blood Pressure [Right Arm] 111/71 Blood Pressure Mean Blood Pressure Mean [Right Arm] 84 Pulse Oximetry 96 95 Oxygen Delivery Method Nasal Cannula Oxygen Flow Rate 2 Sepsis Recent Fever Within 48 Hours Sepsis New/Unexplained Change in Mental Status Sepsis Action Taken by Nursing Laboratory Data 06/13/24 08:26 06/13/24 08:26 Lab Results 06/13/24 06/13/24 06/13/24 Range/Units 08:26 10:31 12:40 WBC 17.78 H (4.8-10.8) K/ul RBC 4.20 L (4.70-6.10) M/uL Hgb 12.7 L (14.0-18.0) g/dl Hct 37.7 L (42.0-52.0) % MCV 89.8 (80.0-100.0) fL MCH 30.2 (25.0-34.0) pg MCHC 33.7 (32.0-36.0) g/dL RDW Std Deviation 47.9 H (36.4-46.3) fL RDW Coeff of Estephania 14.6 H (11.5-14.5) % Plt Count 280 (130-400) K/uL MPV 10.7 (9.4-12.4) fL Immature Gran % (Auto) 0.6 % Neut % (Auto) 86.4 % Lymph % (Auto) 4.7 % [place] % (Auto) 5.5 % Eos % (Auto) 2.5 % Baso % (Auto) 0.3 % Neut # (Auto) 15.36 H (1.40-6.50) K/uL Lymph # (Auto) 0.83 L (1.20-3.40) K/uL [place] # (Auto) 0.98 H (0.11-0.59) K/uL Eos # (Auto) 0.45 (0.00-0.50) K/uL Baso # (Auto) 0.05 (0.00-0.20) K/uL Immature Gran # (Auto) 0.11 (0.01-0.20) K/uL PT 10.8 (9.0-12.0) Seconds INR 1.0 (0.9-1.1) Sodium 139 (136-145) mmol/L Potassium 4.3 (3.5-5.1) mmol/L Chloride 104 (98-107) mmol/L Carbon Dioxide 28 (21-32) mmol/L Anion Gap 7 (3-11) BUN 20 (6-23) mg/dl Creatinine 1.18 (0.6-1.4) mg/dl Est Cr Clr Drug Dosing 59.4 ml/min Est GFR ( Amer) 70.0 ml/min Est GFR (Non-Af Amer) 60.4 ml/min BUN/Creatinine Ratio 16.9 (10-20) Glucose 117 H (70-99(Fasting)) mg/dl Calcium 8.8 (8.6-10.3) mg/dl Total Bilirubin 1.0 (0.2-1.0) mg/dl AST 22 (13-39) U/L ALT 29 (7-52) U/L Alkaline Phosphatase 48 (34-104) U/L Total Protein 5.9 L (6.0-8.3) gm/dl Albumin 4.1 (3.4-5.0) gm/dl Globulin 1.8 L (2.5-4.0) gm/dl Albumin/Globulin Ratio 2.3 H (0.9-2) Lipase 22 (11-82) U/L Urine Color Dark Yellow Urine Appearance Cloudy A (Clear) Urine pH 5.5 (4.5-7.5) Ur Specific [place] 1.022 (1.000-1.030) Urine Protein 1+ H (Negative) Urine Glucose (UA) Negative (Negative) Urine Ketones Trace H (Negative) Urine Blood Negative (Negative) Urine Nitrite Negative (Negative) Urine Bilirubin Negative (Negative) Urine Urobilinogen Negative (Negative) Ur Leukocyte Esterase Trace H (Negative) Urine WBC (Auto) 0-5 (0-5) /hpf Urine RBC (Auto) 0-2 (0-2) /hpf U Hyaline Cast (Auto) >20 H (0-2) /lpf U Epithel Cells (Auto) 3-5 H (0-2) /hpf Urine Bacteria (Auto) None Seen (None Seen) Urine Mucus Present A (None Prsent) Adenovirus (PCR) Not Detected (NotDetected) B. pertussis DNA (PCR) Not Detected (NotDetected) B.parapertussis DNA PCR Not Detected (NotDetected) C. pneumoniae DNA (PCR) Not Detected (NotDetected) Coronavirus OC43 (PCR) Not Detected (NotDetected) Coronavirus HKU1 (PCR) Not Detected (NotDetected) Coronavirus 229E (PCR) Not Detected (NotDetected) SARS-CoV-2 (PCR) Not Detected (NotDetected) Coronavirus NL63 (PCR) Not Detected (NotDetected) Human Metapneumovir PCR Not Detected (NotDetected) Influenza Type A (PCR) Not Detected (NotDetected) Influenza Type B (PCR) Not Detected (NotDetected) M. pneumoniae (PCR) Not Detected (NotDetected) Parainfluenza 1 (PCR) Not Detected (NotDetected) Parainfluenza 2 (PCR) Not Detected (NotDetected) Parainfluenza 3 (PCR) Not Detected (NotDetected) Parainfluenza 4 (PCR) Not Detected (NotDetected) RSV (PCR) Not Detected (NotDetected) Entero/Rhino (PCR) Not Detected (NotDetected) Administered Medications Discontinued Medications Dexamethasone (Dexamethasone Sod Inj 4 Mg/Ml Vial) 10 mg IV NOW STA Stop: 06/13/24 09:36 Last Admin: 06/13/24 09:44 Dose: 10 mg Documented By: JENNY Diazepam (Diazepam 5 Mg/Ml 10ml Vial) 2 mg IV NOW STA Stop: 06/13/24 09:36 Last Admin: 06/13/24 09:45 Dose: 2 mg Documented By: JENNY Hydromorphone HCl (Hydromorphone Inj 0.5 Mg/0.5 Ml Syr) 0.5 mg IV NOW STA Stop: 06/13/24 08:31 Last Admin: 06/13/24 08:37 Dose: 0.5 mg Documented By: JENNY Sodium Chloride (Nss) 500 mls @ 999 mls/hr IV .Q31M STA Stop: 06/13/24 08:59 Last Infusion: 06/13/24 09:38 Dose: Infused Documented By: Admin: 06/13/24 08:37 Dose: 999 mls/hr Documented By: JENNY Acetaminophen (Ofirmev) 1,000 mg in 100 mls @ 400 mls/hr IV NOW STA Stop: 06/13/24 10:35 Last Infusion: 06/13/24 10:48 Dose: Infused Documented By: Admin: 06/13/24 10:27 Dose: 400 mls/hr Documented By: CLAIR Ondansetron HCl (Ondansetron Inj 2 Mg/Ml 2 Ml Vial) 4 mg IV NOW STA Stop: 06/13/24 08:30 Last Admin: 06/13/24 08:37 Dose: 4 mg Documented By: JENNY Imaging Data Radiologist's Impression: Thoracolumbar Spine 06/13/24 08:37 THORACOLUMBAR SPINE 2 VIEWS CLINICAL HISTORY: Low back pain. Recent surgery. FINDINGS: AP and lateral views of the thoracolumbar spine are compared to study dated 04/13/2024. The skeletal structures are osteopenic. There is no radiographic evidence of acute fracture or malalignment. There is a chronic compression deformity of L2 status post vertebroplasty. There is a minimal chronic superior endplate compression deformity of L3. Vertebral body height is otherwise maintained throughout the imaged thoracolumbar spine. There has been discectomy at L4-L5 and L5-S1 with laminectomy and posterior fusion seen extending from T12 to S1. Interpedicular screws are present at all levels with the exception of L5. The orthopedic hardware appears intact. Interposition of bone graft material is noted. There is straightening of the lumbar lordosis. Tiny anterior osteophytes are seen throughout. The visualized bony pelvis appears intact. Sclerotic change is noted in the sacroiliac joints. Cholecystectomy clips are seen in the right upper quadrant. Suture material projects over the right groin. There are pelvic phleboliths. No bowel obstruction is identified. Moderate constipation is observed. Mild atherosclerotic calcification is seen in the abdominal aorta. IMPRESSION: 1. No acute bony abnormality is seen throughout the imaged thoracolumbar spine. 2. Osteopenia with chronic, degenerative, and postsurgical changes as above. Dictated: 06/13/2024 9:31 AM Transcribed: 06/13/2024 10:05 AM Rc [id number] [email or web address] Electronically signed by: Coy Chávez M.D. 06/13/2024 10:07 AM Discharge Plan Visit Data Chief Complaint: Pain (Generalized) Stated Complaint: SEVERE PAIN ED Provider: José Nieves Discharge Problem: Back pain Forms Stand Alone Forms: [facility] [employer] Prescriptions Prescriptions: No Action hydrochlorothiazide 12.5 mg tablet 12.5 mg PO QAM Qty: 90 3RF irbesartan 300 mg tablet 300 mg PO QAM Qty: 90 3RF Actemra ACTPen 162 mg/0.9 mL pen injector 162 mg subcut Q7D Qty: 4 3RF Patient Comments: wednesdays, last dose before surgery 05/23/24 levothyroxine [Synthroid] 150 mcg tablet 150 mcg PO QAM Qty: 90 3RF PreserVision AREDS-2 250-90-40-1 mg Capsule 1 tab PO BID aspirin 81 mg tablet,delayed release (DR/EC) 81 mg PO QAM rosuvastatin 40 mg tablet 40 mg PO HS zoledronic [id number] [Reclast] 5 mg/100 mL Piggyback 5 ea IV YEARLY tramadol 50 mg tablet 50 mg PO Q6H PRN (Reason: Moderate Pain (Scale Score 5-6)) oxycodone 5 mg tablet 5 mg PO Q4H PRN (Reason: Severe Pain (Scale Score 7-10)) Referrals Referrals: Leo Clemens MD [Primary Care Provider] - Discharge Problem: Back pain Qualifiers: Back pain location: low back pain Chronicity: acute Back pain laterality: u nspecified Sciatica presence: without sciatica Qualified Code(s): M54.50 - Low back pain, unspecified
[2024-06-13] MEDS: SODIUM CHLORIDE 0.9% 500 ML IV STA (08:37)
[2024-06-13] MEDS: ONDANSETRON INJ 2 MG/ML 2 ML VIAL IV STA (08:37)
[2024-06-13] MEDS: HYDROmorphone INJ 0.5 MG/0.5 ML SYR IV STA (08:37)
[2024-06-13 09:10] LABS: Basophils # (auto) 0.05 K/uL (0.00-0.20); Basophils % (auto) 0.3 %; Eosinophils # (auto) 0.45 K/uL (0.00-0.50); Eosinophils % (auto) 2.5 %; Hematocrit (blood only) 37.7 % (42.0-52.0); Hemoglobin 12.7 g/dl (14.0-18.0); Immature Granulocytes # (auto) 0.11 K/uL (0.01-0.20); Immature Granulocytes % (auto) 0.6 %; Lymphocytes # (auto) 0.83 K/uL (1.20-3.40); Lymphocytes % (auto) 4.7 %; Mean Corpuscular Hemoglobin 30.2 pg (25.0-34.0); Mean Corpuscular Hgb Conc 33.7 g/dL (32.0-36.0); Mean Corpuscular Volume 89.8 fL (80.0-100.0); Mean Platelet Volume 10.7 fL (9.4-12.4); Monocytes # (auto) 0.98 K/uL (0.11-0.59); Monocytes % (auto) 5.5 %; Neutrophils # (auto) 15.36 K/uL (1.40-6.50); Neutrophils % (auto) 86.4 %; Platelet Count 280 K/uL (130-400); RDW Coefficient of Variation 14.6 % (11.5-14.5); RDW Standard Deviation 47.9 fL (36.4-46.3); White Blood Count 17.78 K/ul (4.8-10.8)
[2024-06-13 09:18] LABS: Alanine Aminotransferase 29 U/L (7-52); Albumin Globulin Ratio 2.3 (0.9-2); Albumin Level 4.1 gm/dl (3.4-5.0); Alkaline Phosphatase 48 U/L (34-104); Anion Gap 7 (3-11); Aspartate Aminotransferase 22 U/L (13-39); BUN Creatinine Ratio 16.9 (10-20); Blood Urea Nitrogen 20 mg/dl (6-23); Calcium 8.8 mg/dl (8.6-10.3); Carbon Dioxide 28 mmol/L (21-32); Chloride 104 mmol/L (98-107); Creatinine Clr Calc Pharmacy 59.4 ml/min; Est GFR (Non-African American) 60.4 ml/min; Globulin 1.8 gm/dl (2.5-4.0); Glucose 117 mg/dl (70-99(Fasting)); Lipase 22 U/L (11-82); Potassium 4.3 mmol/L (3.5-5.1); Sodium 139 mmol/L (136-145); Total Protein 5.9 gm/dl (6.0-8.3)
[2024-06-13 09:27] LABS: Prothrombin Time 10.8 Seconds (9.0-12.0)
[2024-06-13] MEDS: DEXAMETHASONE SOD INJ 4 MG/ML VIAL IV STA (09:44)
[2024-06-13] MEDS: diazePAM 5 MG/ML 10ML VIAL IV STA (09:45)
--- NOTE | 2024-06-13 10:09 | XRay Report ---
THORACOLUMBAR SPINE 2 VIEWS CLINICAL HISTORY: Low back pain. Recent surgery. FINDINGS: AP and lateral views of the thoracolumbar spine are compared to study dated 04/13/2024. The skeletal structures are osteopenic. There is no radiographic evidence of acute fracture or malalignme nt. There is a chronic compression deformity of L2 status post vertebroplasty. There is a minimal chr onic superior endplate compression deformity of L3. Vertebral body height is otherwise maintained thr oughout the imaged thoracolumbar spine. There has been discectomy at L4-L5 and L5-S1 with laminectomy and posterior fusion seen extending from T12 to S1. Interpedicular screws are present at all levels with the exception of L5. The orthopedic hardware appears intact. Interposition of bone graft materia l is noted. There is straightening of the lumbar lordosis. Tiny anterior osteophytes are seen through out. The visualized bony pelvis appears intact. Sclerotic change is noted in the sacroiliac joints. C holecystectomy clips are seen in the right upper quadrant. Suture material projects over the right gr oin. There are pelvic phleboliths. No bowel obstruction is identified. Moderate constipation is obser alicia. Mild atherosclerotic calcification is seen in the abdominal aorta. IMPRESSION: 1. No acute bony abnormality is seen throughout the imaged thoracolumbar spine. 2. Osteopenia with chronic, degenerative, and postsurgical changes as above. Dictated: 06/13/2024 9:31 AM Transcribed: 06/13/2024 10:05 AM Rc [id number] [email or web address] Electronically signed by: Coy Chávez M.D. 06/13/2024 10:07 AM
[2024-06-13] MEDS: ACETAMINOPHEN 1,000 MG/100 ML VIAL IV STA (10:27)
[2024-06-13 11:43] LABS: Adenovirus PCR Not Detected (NotDetected); Bordetella parapertussis PCR Not Detected (NotDetected); Bordetella pertussis PCR Not Detected (NotDetected); Chlamydia pneumoniae PCR Not Detected (NotDetected); Coronavirus 229E PCR Not Detected (NotDetected); Coronavirus CoV-2 (COVID19)PCR Not Detected (NotDetected); Coronavirus HKU1 PCR Not Detected (NotDetected); Coronavirus NL63 PCR Not Detected (NotDetected); Coronavirus OC43PCR Not Detected (NotDetected); Human Metapneumovirus PCR Not Detected (NotDetected); Influenza A PCR Not Detected (NotDetected); Influenza B PCR Not Detected (NotDetected); Mycoplasma pneumoniae PCR Not Detected (NotDetected); Parainfluenza Virus 1 PCR Not Detected (NotDetected); Parainfluenza Virus 2 PCR Not Detected (NotDetected); Parainfluenza Virus 3 PCR Not Detected (NotDetected); Parainfluenza Virus 4 PCR Not Detected (NotDetected); Respiratory Syncytial VirusPCR Not Detected (NotDetected); Rhinovirus/Enterovirus PCR Not Detected (NotDetected)
[2024-06-13 13:24] LABS: Appearance Urine Cloudy (Clear); Bacteria Urine Automated None Seen (None Seen); Bilirubin Urine Negative (Negative); Blood Urine Negative (Negative); Cast Urine Automated >20 /lpf (0-2); Color Urine Dark Yellow; Glucose Urine UA Negative (Negative); Ketones Urine Trace (Negative); Leukocyte Esterase Urine Trace (Negative); Mucus Urine Present (None Prsent); Nitrite Urine Negative (Negative); Protein Urine 1+ (Negative); RBC Urine Automated 0-2 /hpf (0-2); Specific Gravity Urine 1.022 (1.000-1.030); Urobilinogen Urine Negative (Negative); WBC Urine Automated 0-5 /hpf (0-5); pH Urine 5.5 (4.5-7.5)
--- NOTE | 2024-06-13 14:46 | Magnetic Resonance Report ---
MR lumbar spine wo con CLINICAL HISTORY: 74 years-old Male with back pain, recent surgery. Acute severe low back pain prior spinal fusion COMPARISON: 05/18/2024 TECHNIQUE: Multiplanar, multi sequence MRI of the lumbar spine was performed without intravenous cont rast. FINDINGS: For the purpose of the report the L5-S1 disc space will be located on axial image 42 of series 7. Unc hanged appearance of L2 compression deformity. Bone marrow signal is not well evaluated on today's st udy secondary to the limited STIR series which is motion degraded and artifacts degraded. Hypointense linear signal at the inferior endplate of L1 without surrounding marrow edema or soft tissue edema s uggestive of an old, healed fracture. The horizontal fracture through the posterior elements of the L 1-L2 disc space suggestive of a subacute fracture is also better evaluated on the prior study. There is an old mild superior endplate compression fracture at L3. No additional fractures within the lumba r spine. There is straightening of the lumbar spine. The conus terminates at the T12-L1 level. Posterior interbody deonna and screw fusion hardware extends from T12 through S1. The T12-L3 screws are new from the prior study. Incisional fluid collection measures up to approximately 2.2 x 1.7 x 8.4 cm (image 3 series 7 and image 12 series 4) extending to the superficial subcutaneous tissues. There is adjacent edema within the paraspinal musculature. L1-L2: No significant central canal or neural foraminal narrowing. L2-L3: Small posterior disc osteophyte complex with 3 mm of bowing of the posterior cortex, unchanged . This results in mild central canal narrowing. No significant neural foraminal narrowing. L3-L4: No significant central canal narrowing due to the posterior decompression. There is mild bilat eral neural foraminal narrowing. L4-L5: No significant central canal narrowing due to the posterior decompression. There is mild left and moderate right neural foraminal narrowing primarily due to the facet hypertrophy. L5-S1: No significant central canal narrowing due to the posterior decompression. Severe bilateral ne ural foraminal narrowing is unchanged. IMPRESSION: 1. Limited exam as above. 2. Posterior interbody deonna and screw fusion hardware involves the T12-S1 levels. 3. There is a postoperative fluid collection extending to the superficial subcutaneous tissues measur ing up to 8.4 cm in length, likely a seroma. 4. Previously described subacute L2 and L1-L2 fractures are better seen and described on the comparis on exam. ACT 112: Negative or not required by law. The above report was generated using voice recognition software. It may contain grammatical, syntax o r spelling errors. Electronically signed by: Hiren Muñoz M.D. 06/13/2024 2:45 PM
[2024-06-13] MEDS ORDERED: METOCLOPRAMIDE HCL INJ 5 MG/ML 2 ML VIAL IV PRN (16:05)
[2024-06-13] MEDS ORDERED: CYCLOBENZAPRINE HCL 10 MG TAB PO PRN (16:05)
[2024-06-13] MEDS ORDERED: PROMETHAZINE 12.5 MG/50.5 ML BAG IV PRN (16:05)
[2024-06-13] MEDS ORDERED: ONDANSETRON INJ 2 MG/ML 2 ML VIAL IV PRN (16:05)
[2024-06-13] MEDS ORDERED: LORazepam 0.5 MG TAB PO PRN (16:05)
[2024-06-13] MEDS ORDERED: oxyCODONE/ACETAMINOPHEN 10-325 TAB PO PRN (16:05)
[2024-06-13] MEDS ORDERED: LORazepam 2 MG/1 ML VIAL IV PRN (16:05)
[2024-06-13] MEDS ORDERED: NALOXONE HCL 0.4 MG/1 ML VIAL/CARP IV PRN (16:05)
[2024-06-13] MEDS ORDERED: ONDANSETRON 4 MG OD TAB PO PRN (16:05)
[2024-06-13] MEDS: LACTATED RINGER'S 1,000 ML IV SCH (16:21)
[2024-06-13] MEDS: traMADol HCL 50 MG TABLET PO PRN (16:31)
--- NOTE | 2024-06-13 17:17 | Hospitalist Consultation ---
Date of Consultation June 13, 2024 Assessment & Plan (1) S/P lumbar fusion: Lumbar fusion with Dr. Moya on 06/05 Patient returned to the ED due to acute onset of back pain the evening of 06/12 and fever the morning of 06/13 up to 38.8 C Pain control, IV fluids, and DVT PPx per the primary team N.p.o. at midnight Potential I&D on 06/14 A.m. CBC, BMP, CRP (2) Hypotension: BP dropped to 84/53 around 1600 and fluids were started with LR at 75 mL/hr Manual recheck of BP was 102/54 in the right arm around 1800 Additional 250 mL bolus given Hold a.m. irbesartan and HCTZ (3) Fever: Fever of 38.8 C on arrival Clinically, patient denies infectious symptoms BioFire negative UA dark cloudy, but negative for bacteria Blood cultures were drawn in the ED Signed out to overnight team If fever returns overnight, will treat empirically with Rocephin/vancomycin CXR ordered, pending CRP ordered, pending Trend CRP Plan Agree with current medical decision making; we will continue to watch for recurrence of fever/hypotension and add empiric antibiotics if needed. Disposition: MedSurg Regular diet as tolerated VTE PPx: SCDs/teds Thank you for allowing us to persuade in the care of this patient, please reach out with any questions or concerns; we will continue to follow. Supervising Physician Co-Signing Physician Notes Patient seen and examined, chart reviewed, case discussed with Ernie Andrew PA-C and I agree with the assessment and plan as above except as otherwise noted Labs and images reviewed Tommy is a 74-year-old male with a past medical history of GCA, former tobacco use, BPH, amaurosis fugax, BPPV, hypertension, hypothyroidism, hyperlipidemia who presented to the ER for recurrent low back pain and was admitted by orthopedics. Has had about 1 day worsening low back pain which has progressed and is limiting his movement due to pain. He was hypotensive in the ER 95/65 and afebrile on arrival, he did become febrile to 38 following admission. We have been consulted for assistance with medication management. W/ a leukocytosis of 17.78 with neutrophilic predominance INcision C/D/I Repeat imaging with fluid collection suspicious for seroma. At bedside patient reports he feels well, denies fever, chills, sweats, lightheadedness, dizziness. He reports he knew he had a fever from being told earlier but has not felt feverish or sick. At time of bedside assessment he reports he feels well, denies lightheadedness or dizziness, denies chest pain chest pressure. No cough. Does have some increased discomfort in his back which has been progressing over the last 24 hours. Reviewed with orthopedic spine. Surgical site looks good patient was doing well however given fever x1 greater than 38 and hypotension agree with IVF and blood cultures. Would like to avoid empiric abx if possible. If he has recurrent episode of fever or is deteriorating then --> +cefepime/vancomycin at that time. CRP added, this is not elevated. He does not have a left shift. Agree with above History of Present Illness Reason for Consultation: Medical management, hypertension Requesting Physician: Dr. Renard Moya DO Attending Physician: Renard Moya DO History of Present Illness Tommy is a pleasant 74-year-old male with PMH of HTN, hypothyroidism, BPPV, giant cell arteritis, amaurosis fugax, SVT, and lumbar radiculopathy. He returned to the ED on 06/13 for acute onset of lower back pain the evening prior. He recently had surgery with Dr. Moya (spinal fusion) performed on Tuesday 06/05. He reports that he was feeling fine following the surgery, and not requiring any pain medication; not even Tylenol. He was reports he was walking around "1000 steps" daily up until last night, when he developed lower back and bilateral hip pain. He took oxycodone 5 mg at 10 PM, 3 AM, and 7 AM without pain relief. The pain is located in his lower back and hips bilaterally, with radiation down the legs bilaterally whenever he bears weight. He reports that the pain is 8/10 at worst; exacerbated by movements and putting weight on his legs. He rates the pain 3/10 at present while he is sitting still. Patient did not take his temperature at home, but believes he had a fever of 101 C for around an hour or 2 this morning prior to coming to the ED. No BM this morning; he normally has 1 BM daily; however he attributes this to taking oxycodone last night. No supplemental oxygen at baseline or CPAP at night. Patient did take his medications this morning, however he notes he vomited approximately 1 hour after taking them; no recent change in medications other than taking oxycodone 5 mg for pain after his surgery. Patient denies smoking, tobacco use, or recent alcohol use. Patient was found to be hypotensive at 84/53 at time of consult around 1400; however, his vitals are stable when seen around 1600. ROS: Patient endorses severe onset of lower back pain and bilateral hip pain, vomiting x 1 episode (which patient attributes to pain), fever on the morning of 06/13, and chills. Patient denies night sweats, vomiting, dizziness, headache, chest pain, SOB, cough, pleuritic CP, diarrhea, with urination, saddle anesthesia, loss of leg function, or numbness or tingling in the legs. Allergies Allergy/AdvReac Type Severity Reaction Status Date / Time Influenza Virus Vaccines Allergy Severe THROAT Verified 06/05/24 06:41 SWELL, LIPS SWELLING Penicillins Allergy Severe SWELLING,HIVES Verified 06/05/24 06:41 RASH morphine AdvReac Severe SEVERE Verified 06/05/24 06:41 HEADACHE and Nausea lisinopril AdvReac Intermediate COUGH Verified 06/05/24 06:41 Home Medications Medication Instructions Recorded Confirmed Type levothyroxine 150 mcg tablet 150 mcg PO QAM #90 tabs 06/27/23 06/13/24 Rx (Synthroid) vit C 250 mg-vit E 90 mg-zinc 40 1 tab PO BID 07/11/23 06/13/24 History mg-copper 1 ii-robraa-ohswdd capsule (PreserVision AREDS-2) hydrochlorothiazide 12.5 mg tablet 12.5 mg PO QAM #90 tabs 04/18/24 06/13/24 Rx irbesartan 300 mg tablet 300 mg PO QAM #90 tabs 04/18/24 06/13/24 Rx tocilizumab 162 mg/0.9 mL 162 mg (0.9 mL) subcut Q7D #4 mL 05/11/24 06/13/24 Rx subcutaneous pen injector (Actemra ACTPen) aspirin 81 mg tablet,delayed 81 mg PO QAM 05/28/24 06/13/24 History release rosuvastatin 40 mg tablet 40 mg PO HS 05/28/24 06/13/24 History zoledronic acid 5 mg/100 mL in 5 ea IV YEARLY 06/05/24 06/13/24 History mannitol 5 %-water intravenous piggybck (Reclast) oxycodone 5 mg tablet 5 mg PO Q4H PRN Severe Pain (Scale 06/13/24 06/13/24 History Score 7-10) tramadol 50 mg tablet 50 mg PO Q6H PRN Moderate Pain 06/13/24 06/13/24 History (Scale Score 5-6) Patient History Medical History Chronic back pain Compression fracture of L2 reason for upcoming sx 06/04/24 Giant cell arteritis hx, gets weekly injection to help with this History of anemia History of basal cell carcinoma of skin History of COVID-19 Diagnosed via home test 04/07/22--mild symptoms, no symptoms now History of left foot drop "no current issues per pt, had in the past due to surgery" History of renal stone Hypercholesteremia Hypertension Hypothyroidism Macular degeneration of left eye Polymyalgia rheumatica SVT (supraventricular tachycardia) follows with [facility] Vertigo hx Surgical History History of appendectomy History of basal cell carcinoma (BCC) excision History of cataract surgery bilateral History of colonoscopy History of cystoscopy w/laser destruction kidney stone and stent placement; 05/10/22: LMA#5. History of hernia repair x2 on right side History of lumbar spinal fusion x2--12/02/22 Dr. Moya @ [facility] and 2000 History of open reduction and internal fixation (ORIF) procedure (~09/08/01) left wrist History of temporal artery biopsy History of tonsillectomy and adenoidectomy Hx laparoscopic cholecystectomy (05/27/22) Laparoscopic Cholecystectomy with Cholangiogram - Phu Arreguin MD, FACS S/P laparoscopic hernia repair left Family History Mother Heart disease Stroke syndrome Father Heart disease Myocardial infarction Sister Kidney disease Grandfather Heart disease Unknown Heart disease Other No family history of adverse response to anesthesia Denies family history of Ovarian cancer Prostate cancer Breast cancer Colorectal cancer Social History Smoking Status: Former smoker Tobacco Type: Cigarettes Age Quit Using Tobacco: 33; Smoking End Date: 1982; Second Hand Exposure: No; Do You Dip or Chew Tobacco: No; Tobacco Cessation Education Requested by Patient: No Hx Alcohol Use: No Hx Substance Use: No Preferred Language: Tajik Communication Ability: Effective Visual Impairment: No Limitations Hearing Ability: Normal Loom Changer Required: No Beliefs That Will Affect Care: None marital status: Current Living Situation: Spouse current occupational status: retired Other Information That Helps Us Care for You: No Feels Safe at Home: Yes Safety Concerns: Feels Safe At This Time Childhood Exposure to Second-Hand Smoke: Yes Diet: regular caffeine: Yes during the past year weight has: remained stable Dental Care, Regularly: Yes Physical Activity Frequency: Daily Seatbelt Use: always Sunscreen Use: Yes Assistive Devices: Hearing Aid - Bilateral Assistive Devices Comment: hearing aids not here at the hospital Review of Systems Review of Systems: See HPI above Physical Exam Physical Exam: General: no acute distress; pleasant affect; non-toxic appearing; well- nourished; cooperative; SpO2 96% on RA HEENT: normocephalic, atraumatic; no scleral icterus; PERRLA; vision and hearing grossly intact Neck: supple; no lymphadenopathy; trachea midline Skin: warm, dry without signs of tenting; no cyanosis; no rashes, bruising, lesions, or erythema noted CV: chest wall NTP; RRR; S1/S2 normal; no murmurs/rubs/gallops; pulses intact and symmetric at radial, DP, and PT Lungs: no acute respiratory distress; symmetrical chest wall expansion; clear breath sounds across all lung shukla w/o adventitious sounds; no wheezing ABD: Soft, NTP in all 4 quadrants; BS present; no rebound/guarding; no distention Back: Upper spine NTP; moderate seroma/swelling on the upper site of the surgical incision; site is mildly TTP; no signs of drainage or erythema MSK: no tics or fasciculations; no edema noted in the LEs b/l, nonerythematous; patient demonstrates the ability to wiggle toes, plantarflex/dorsiflex/bend knees with 5/5 strength bilaterally; bending knees does precipitate pain in his lower hips and back Neuro: A&Ox3; normal mood and affect; fluent speech; no focal deficits; sensation grossly intact and symmetric in the LEs b/l assessed via light touch Manual BP and right arm was 102/54 Results & Data Results & Data Vital Signs (Past 12 Hours) Vital Signs Temp Pulse Pulse Pulse Resp BP BP 06/13/24 16:06 36.8 C 90 18 84/53 L 06/13/24 15:44 37.2 C 84 18 06/13/24 14:10 97 H 20 108/60 06/13/24 12:50 107 H 20 111/71 06/13/24 10:33 114 H 26 H 06/13/24 10:31 113 H 18 117/75 06/13/24 10:21 38.8 C H 06/13/24 10:00 100 H 19 123/74 06/13/24 09:42 103 H 18 06/13/24 09:35 06/13/24 09:30 107/77 06/13/24 09:23 90 06/13/24 09:21 91 H 16 06/13/24 08:09 36.5 C 84 22 95/61 L Pulse Ox O2 Del Method O2 Flow Rate 06/13/24 16:06 96 Room Air 06/13/24 15:44 95 Room Air 06/13/24 14:10 95 Room Air 06/13/24 12:50 95 Nasal Cannula 2 06/13/24 10:33 96 06/13/24 10:31 95 06/13/24 10:21 06/13/24 10:00 98 06/13/24 09:42 06/13/24 09:35 96 Nasal Cannula 2 06/13/24 09:30 96 06/13/24 09:23 06/13/24 09:21 06/13/24 08:09 97 Room Air Laboratory Results Abnormal lab results 06/13/24 06/13/24 Range/Units 08:26 12:40 WBC 17.78 H (4.8-10.8) K/ul RBC 4.20 L (4.70-6.10) M/uL Hgb 12.7 L (14.0-18.0) g/dl Hct 37.7 L (42.0-52.0) % RDW Std Deviation 47.9 H (36.4-46.3) fL RDW Coeff of Estephania 14.6 H (11.5-14.5) % Neut # (Auto) 15.36 H (1.40-6.50) K/uL Lymph # (Auto) 0.83 L (1.20-3.40) K/uL [place] # (Auto) 0.98 H (0.11-0.59) K/uL Glucose 117 H (70-99(Fasting)) mg/dl Total Protein 5.9 L (6.0-8.3) gm/dl Globulin 1.8 L (2.5-4.0) gm/dl Albumin/Globulin Ratio 2.3 H (0.9-2) Urine Appearance Cloudy A (Clear) Urine Protein 1+ H (Negative) Urine Ketones Trace H (Negative) Ur Leukocyte Esterase Trace H (Negative) U Hyaline Cast (Auto) >20 H (0-2) /lpf U Epithel Cells (Auto) 3-5 H (0-2) /hpf Urine Mucus Present A (None Prsent) Diagnostic Findings Thoracolumbar Spine 06/13/24 08:37 THORACOLUMBAR SPINE 2 VIEWS CLINICAL HISTORY: Low back pain. Recent surgery. FINDINGS: AP and lateral views of the thoracolumbar spine are compared to study dated 04/13/2024. The skeletal structures are osteopenic. There is no radiographic evidence of acute fracture or malalignment. There is a chronic compression deformity of L2 status post vertebroplasty. There is a minimal chronic superior endplate compression deformity of L3. Vertebral body height is otherwise maintained throughout the imaged thoracolumbar spine. There has been discectomy at L4-L5 and L5-S1 with laminectomy and posterior fusion seen extending from T12 to S1. Interpedicular screws are present at all levels with the exception of L5. The orthopedic hardware appears intact. Interposition of bone graft material is noted. There is straightening of the lumbar lordosis. Tiny anterior osteophytes are seen throughout. The visualized bony pelvis appears intact. Sclerotic change is noted in the sacroiliac joints. Cholecystectomy clips are seen in the right upper quadrant. Suture material projects over the right groin. There are pelvic phleboliths. No bowel obstruction is identified. Moderate constipation is observed. Mild atherosclerotic calcification is seen in the abdominal aorta. IMPRESSION: 1. No acute bony abnormality is seen throughout the imaged thoracolumbar spine. 2. Osteopenia with chronic, degenerative, and postsurgical changes as above. Dictated: 06/13/2024 9:31 AM Transcribed: 06/13/2024 10:05 AM Rc [id number] [email or web address] Electronically signed by: Coy Chávez M.D. 06/13/2024 10:07 AM Lumbar Spine MRI 06/13/24 12:26 MR lumbar spine wo con CLINICAL HISTORY: 74 years-old Male with back pain, recent surgery. Acute severe low back pain prior spinal fusion COMPARISON: 05/18/2024 TECHNIQUE: Multiplanar, multi sequence MRI of the lumbar spine was performed without intravenous contrast. FINDINGS: For the purpose of the report the L5-S1 disc space will be located on axial image 42 of series 7. Unchanged appearance of L2 compression deformity. Bone marrow signal is not well evaluated on today's study secondary to the limited STIR series which is motion degraded and artifacts degraded. Hypointense linear signal at the inferior endplate of L1 without surrounding marrow edema or soft tissue edema suggestive of an old, healed fracture. The horizontal fracture through the posterior elements of the L1-L2 disc space suggestive of a subacute fracture is also better evaluated on the prior study. There is an old mild superior endplate compression fracture at L3. No additional fractures within the lumbar spine. There is straightening of the lumbar spine. The conus terminates at the T12-L1 level. Posterior interbody deonna and screw fusion hardware extends from T12 through S1. The T12-L3 screws are new from the prior study. Incisional fluid collection measures up to approximately 2.2 x 1.7 x 8.4 cm (image 3 series 7 and image 12 series 4) extending to the superficial subcutaneous tissues. There is adjacent edema within the paraspinal musculature. L1-L2: No significant central canal or neural foraminal narrowing. L2-L3: Small posterior disc osteophyte complex with 3 mm of bowing of the posterior cortex, unchanged. This results in mild central canal narrowing. No significant neural foraminal narrowing. L3-L4: No significant central canal narrowing due to the posterior decompression. There is mild bilateral neural foraminal narrowing. L4-L5: No significant central canal narrowing due to the posterior decompression. There is mild left and moderate right neural foraminal narrowing primarily due to the facet hypertrophy. L5-S1: No significant central canal narrowing due to the posterior decompression. Severe bilateral neural foraminal narrowing is unchanged. IMPRESSION: 1. Limited exam as above. 2. Posterior interbody deonna and screw fusion hardware involves the T12-S1 levels. 3. There is a postoperative fluid collection extending to the superficial subcutaneous tissues measuring up to 8.4 cm in length, likely a seroma. 4. Previously described subacute L2 and L1-L2 fractures are better seen and described on the comparison exam. ACT 112: Negative or not required by law. The above report was generated using voice recognition software. It may contain grammatical, syntax or spelling errors. Electronically signed by: Hiren Muñoz M.D. 06/13/2024 2:45 PM PG Care Time/CCT Total # of Minutes Spent Total Time Spent with Patient: Total time spent is greater than 50% in coordination of care (as documented) at patient's floor/unit and/or counseling patient: Coding [place] [address] IN/OBS CONSULT LVL 5,80M Patient Type Established Medical Decision Making High Complexity Diagnoses S/P lumbar fusion Z98.1 Hypotension I95.9 Fever R50.9
[2024-06-13] MEDS: ACETAMINOPHEN 500 MG TAB PO PRN (18:27)
[2024-06-13] MEDS: LACTATED RINGER'S 250 ML IV ONE ×2 (18:29→20:35)
[2024-06-13 18:36] LABS: C Reactive Protein < 0.50 mg/dl (0-0.5)
--- NOTE | 2024-06-13 18:59 | XRay Report ---
XR chest 1V portable HISTORY: 74 years-old Male Fever + leukoctyosis COMPARISON: 05/25/2024 TECHNIQUE: AP view of the chest FINDINGS: No pneumothorax. No pleural effusions. No focal lung consolidations to suggest a pneumonia. No eviden ce for pulmonary edema. The heart is normal in size. There are calcified mediastinal and hilar lymph nodes. There are few scattered calcified granulomas within the lungs. No acute fractures. IMPRESSION: No acute process. ACT 112: Negative or not required by law. The above report was generated using voice recognition software. It may contain grammatical, syntax o r spelling errors. Electronically signed by: Hiren Muñoz M.D. 06/13/2024 6:58 PM
[2024-06-13 21:25] LABS: A calco-baum cmplx NotReported Not Detected (NotDetected); Bact fragilis Not Reported Not Detected (NotDetected); Blood Culture Id Panel See PCR Comment (NotDetected); C auris Not Reported Not Detected (NotDetected); CTX-M Resistant Gene Not Detected (NotDetected); Calbicans Not Reported Not Detected (NotDetected); Candida glabrata Not Reported Not Detected (NotDetected); Candida krusei Not Reported Not Detected (NotDetected); Cneoformans/gatti Not Reported Not Detected (NotDetected); Cparapsilosis Not Reported Not Detected (NotDetected); E cloacae compx Not Reported Not Detected (NotDetected); Efaecalis Not Reported Not Detected (NotDetected); Efaecium Not Reported Not Detected (NotDetected); Enterobacterales Not Reported DETECTED (NotDetected); Escherichia coli Not Reported DETECTED (NotDetected); H influenzae Not Reported Not Detected (NotDetected); IMP Resistant Gene Not Detected (NotDetected); K aerogenes Not Reported Not Detected (NotDetected); KPC Resistant Gene Not Detected (NotDetected); Koxytoca Not Reported Not Detected (NotDetected); Kpneumoniae grp Not Reported Not Detected (NotDetected); Lmonocyt Not Reported Not Detected (NotDetected); N meningitidis Not Reported Not Detected (NotDetected); NDM Resistant Gene Not Detected (NotDetected); OXA 48 Like Resistant Gene Not Detected (NotDetected); P aeruginosa Not Reported Not Detected (NotDetected); Proteus spp Not Reported Not Detected (NotDetected); Salmonella spp Not Reported Not Detected (NotDetected); Staph lugdunensis Not Reported Not Detected (NotDetected); Staph spp. Not Reported Not Detected (NotDetected); Staphaureus Not Reported Not Detected (NotDetected); Staphepi Not Reported Not Detected (NotDetected); Stenmaltophilia Not Reported Not Detected (NotDetected); Strep agal(GrpB) Not Reported Not Detected (NotDetected); Strep pneum Not Reported Not Detected (NotDetected); Strep pyog (GrpA) Not Reported Not Detected (NotDetected); Strep spp Not Reported Not Detected (NotDetected); VIM Resistant Gene Not Detected (NotDetected); mcr-1 Colistin Resistant Gene Not Detected (NotDetected)
[2024-06-13 21:33] LABS: Enterobacterales DETECTED (NotDetected)
[2024-06-13] MEDS: PLASMA-LYTE A 500 ML IV ONE (21:56)
[2024-06-13] MEDS: cefTRIAXone SODIUM 2,000 MG/50 ML BAG IV ONE (22:03)
[2024-06-13] MEDS: PLASMA-LYTE A 1,000 ML IV SCH (22:49)
[2024-06-13] MEDS: HYDROmorphone INJ 1 MG/ML SYRINGE IV PRN (23:10)
[2024-06-14] MEDS: HYDROmorphone INJ 0.5 MG/0.5 ML SYR IV PRN (04:25)
[2024-06-14] MEDS: LEVOTHYROXINE SODIUM 150 MCG TABLET PO SCH (04:30)
[2024-06-14] MEDS: oxyCODONE HCL IR 5 MG TAB (IMMEDIATE RELEASE) PO PRN (08:36)
[2024-06-14] MEDS ORDERED: hydroCHLOROthiazide 25 MG TAB PO SCH (09:00)
[2024-06-14] MEDS ORDERED: LOSARTAN POTASSIUM 50 MG TAB PO SCH (09:00)
[2024-06-14 09:03] LABS: Basophils # (auto) 0.06 K/uL (0.00-0.20); Basophils % (auto) 0.2 %; Eosinophils # (auto) 0.01 K/uL (0.00-0.50); Hemoglobin 9.8 g/dl (14.0-18.0); Immature Granulocytes # (auto) 0.41 K/uL (0.01-0.20); Immature Granulocytes % (auto) 1.6 %; Lymphocytes # (auto) 0.25 K/uL (1.20-3.40); Mean Corpuscular Hemoglobin 30.2 pg (25.0-34.0); Mean Corpuscular Hgb Conc 33.8 g/dL (32.0-36.0); Mean Corpuscular Volume 89.2 fL (80.0-100.0); Mean Platelet Volume 10.9 fL (9.4-12.4); Monocytes # (auto) 1.67 K/uL (0.11-0.59); Monocytes % (auto) 6.7 %; Neutrophils % (auto) 90.5 %; Platelet Count 141 K/uL (130-400); RDW Coefficient of Variation 14.7 % (11.5-14.5); RDW Standard Deviation 47.8 fL (36.4-46.3); Red Blood Count 3.25 M/uL (4.70-6.10); Toxic Granulation 2+; Toxic Vacuolation 1+
[2024-06-14 09:14] LABS: Calcium 7.9 mg/dl (8.6-10.3); Potassium 4.7 mmol/L (3.5-5.1)
[2024-06-14 09:20] LABS: BUN Creatinine Ratio 24.6 (10-20); C Reactive Protein 9.42 mg/dl (0-0.5); Creatinine Clr Calc Pharmacy 62.9 ml/min
[2024-06-14] MEDS: CEROVITE ADV FORMULA TAB PO SCH (09:38)
[2024-06-14] MEDS: ASPIRIN 81 MG ECTAB PO SCH (09:38)
--- NOTE | 2024-06-14 10:08 | History & Physical Report ---
Date of Service June 14, 2024 Assessment & Plan (1) S/P lumbar fusion: Plan: In light of the patient's presentation and a significant temperature spike during his time the emergency room we elected to admit the patient for observation. MRI lumbar spine was performed available for review demonstrates small collection of postoperative seroma consistent with his surgery. There is no evidence of any neural compression. Admission and Anticipated Discharge Date Admission Date: June 13, 2024 History of Present Illness Chief Complaint: Back pain Primary Care Provider: Leo Clemens MD Patient presents the emergency room with worsening back pain and marked difficulty with ambulation. He is approximately 8 days status post lumbar fusion. He had been having a normal postoperative course until recently. He denies any radicular complaints. Describes pain at the lumbosacral junction only. He denies pain in the thoracolumbar region. Allergies Allergy/AdvReac Type Severity Reaction Status Date / Time Influenza Virus Vaccines Allergy Severe THROAT Verified 06/05/24 06:41 SWELL, LIPS SWELLING Penicillins Allergy Severe SWELLING,HIVES Verified 06/05/24 06:41 RASH morphine AdvReac Severe SEVERE Verified 06/05/24 06:41 HEADACHE and Nausea lisinopril AdvReac Intermediate COUGH Verified 06/05/24 06:41 Home Medications Medication Instructions Recorded Confirmed Type levothyroxine 150 mcg tablet 150 mcg PO QAM #90 tabs 06/27/23 06/13/24 Rx (Synthroid) vit C 250 mg-vit E 90 mg-zinc 40 1 tab PO BID 07/11/23 06/13/24 History mg-copper 1 [id number] capsule (PreserVision AREDS-2) hydrochlorothiazide 12.5 mg tablet 12.5 mg PO QAM #90 tabs 04/18/24 06/13/24 Rx irbesartan 300 mg tablet 300 mg PO QAM #90 tabs 04/18/24 06/13/24 Rx tocilizumab 162 mg/0.9 mL 162 mg (0.9 mL) subcut Q7D #4 mL 05/11/24 06/13/24 Rx subcutaneous pen injector (Actemra ACTPen) aspirin 81 mg tablet,delayed 81 mg PO QAM 05/28/24 06/13/24 History release rosuvastatin 40 mg tablet 40 mg PO HS 05/28/24 06/13/24 History zoledronic acid 5 mg/100 mL in 5 ea IV YEARLY 06/05/24 06/13/24 History mannitol 5 %-water intravenous piggybck (Reclast) oxycodone 5 mg tablet 5 mg PO Q4H PRN Severe Pain (Scale 06/13/24 06/13/24 History Score 7-10) tramadol 50 mg tablet 50 mg PO Q6H PRN Moderate Pain 06/13/24 06/13/24 History (Scale Score 5-6) Past Med/Surg History Problem List (Updated 06/13/24 @ 17:22 by Ernie Andrew PA-C) Fever S/P lumbar fusion Hypotension Back pain (Acute) Restrictive lung disease Compression fracture of L2 Ex-smoker Pulmonary nodule Abnormal PFTs (pulmonary function tests) GCA (giant cell arteritis) History of temporal artery biopsy (07/13/23) Left Temporal Artery Biopsy(Left) - Kishan Muller, DO, FACS Lumbar disc herniation with radiculopathy Foot drop, left (Acute) Acute lumbar radiculopathy (Acute) 11/30/22 Multiple pulmonary nodules SVT (supraventricular tachycardia) follows with [facility] Nephrolithiasis Cholelithiasis 05/25/22 Encounter for pre-operative examination Amaurosis fugax of left eye reason for scheduled temporal biopsy--had carotid doppler, head MRA, ECHO , holter (all were unremarkable) BPH (benign prostatic hyperplasia) Lumbar radiculopathy (Acute) Back pain Hip pain BPPV (benign paroxysmal positional vertigo) (Acute) Elevated PSA Anemia (Chronic) Hypertension (Chronic) Hypothyroidism (Chronic) Hypercholesterolemia (Chronic) History of laminectomy History of lumbar vertebral fusion Medical History Chronic back pain Compression fracture of L2 reason for upcoming sx 06/04/24 Giant cell arteritis hx, gets weekly injection to help with this History of anemia History of basal cell carcinoma of skin History of COVID-19 Diagnosed via home test 04/07/22--mild symptoms, no symptoms now History of left foot drop "no current issues per pt, had in the past due to surgery" History of renal stone Hypercholesteremia Hypertension Hypothyroidism Macular degeneration of left eye Polymyalgia rheumatica SVT (supraventricular tachycardia) follows with [facility] Vertigo hx Surgical History History of appendectomy History of basal cell carcinoma (BCC) excision History of cataract surgery bilateral History of colonoscopy History of cystoscopy w/laser destruction kidney stone and stent placement; 05/10/22: LMA#5. History of hernia repair x2 on right side History of lumbar spinal fusion x2--12/02/22 Dr. Moya @ [facility] and 2000 History of open reduction and internal fixation (ORIF) procedure (~09/08/01) left wrist History of temporal artery biopsy History of tonsillectomy and adenoidectomy Hx laparoscopic cholecystectomy (05/27/22) Laparoscopic Cholecystectomy with Cholangiogram - Phu Arreguin MD, FACS S/P laparoscopic hernia repair left Family History Mother Heart disease Stroke syndrome Father Heart disease Myocardial infarction Sister Kidney disease Grandfather Heart disease Unknown Heart disease Other No family history of adverse response to anesthesia Denies family history of Ovarian cancer Prostate cancer Breast cancer Colorectal cancer Social History Smoking Status: Former smoker Tobacco Type: Cigarettes Age Quit Using Tobacco: 33; Smoking End Date: 1982; Second Hand Exposure: No; Do You Dip or Chew Tobacco: No; Tobacco Cessation Education Requested by Patient: No Hx Alcohol Use: No Hx Substance Use: No Preferred Language: Maltese Communication Ability: Effective Visual Impairment: No Limitations Hearing Ability: Normal Skiagrapher Required: No Beliefs That Will Affect Care: None marital status: Current Living Situation: Spouse current occupational status: retired Other Information That Helps Us Care for You: No Feels Safe at Home: Yes Safety Concerns: Feels Safe At This Time Childhood Exposure to Second-Hand Smoke: Yes Diet: regular caffeine: Yes during the past year weight has: remained stable Dental Care, Regularly: Yes Physical Activity Frequency: Daily Seatbelt Use: always Sunscreen Use: Yes Assistive Devices: Hearing Aid - Bilateral Assistive Devices Comment: hearing aids not here at the hospital Physical Exam Physical Exam: On exam the incision is healing well. There is no erythema no drainage. The drain was removed by myself. It demonstrates serosanguineous fluid only. He does have some tenderness palpation of the bilateral sciatic notch and SI joint regions. He is neurologically intact. Results & Data Results & Data Vital Signs (Past 12 Hours) Vital Signs Temp Pulse Pulse Resp BP Pulse Ox O2 Del Method 06/14/24 08:00 36.6 C 79 18 130/69 97 Room Air 06/14/24 07:00 79 06/14/24 03:38 36.9 C 86 16 107/64 96 Room Air 06/14/24 00:27 36.8 C 06/13/24 23:59 36.9 C 06/13/24 23:28 82 06/13/24 22:59 36.6 C 82 14 112/47 L 96 Room Air Code Status & VTE Plan VTE Prophylaxis Plan VTE Prophylaxis will be ordered: Yes
--- NOTE | 2024-06-14 11:15 | Infectious Disease Consult ---
Date of Consultation June 14, 2024 Assessment & Plan (1) Fever: (2) Gram-negative bacteremia: (3) Hypotension: (4) S/P lumbar fusion: Plan 74yo M with h/o giant cell arteritis (on tocilizumab), amaurosis fugax, hypothyroidism, HTN, HLD, lumbar radiculopathy s/p L4-S1 fusion, L3 kyphoplasty, revision posterior spinal fusion L1-L4 on 06/05 who presented on 06/13 with acute onset of lower back pain since 06/11. Here, he was febrile to 38.8, hypotensive to 80s with improvement. Satting well on RA. Initial labs with WBC 17.78 > 25. Cr 1.18. AST/ALT wnl. CRP < 0.5 however now 9.42. UA with 0-5 WBC. RPP negative. BCX with GNR PCR noted E coli. XR spine negative for acute abnormality. MRI L spine with postoperative fluid collection extending to the superficial tissues measuring 8.4 cm in length, likely seroma. CXR negative. He has been getting CTX. Drainage catheter was removed. ID consulted 06/14. Gram negative bacteremia noted in the setting of sepsis. His WBC and CRP are both elevated today. I dont see a specific localizing source aside from his complaint of acute back pain. In the setting of recent surgery, I do worry that this is the site of the infection. He has a collection on MRI but is noted to be a seroma. ?if this is superinfected. Otherwise, he denies having any abdominal symptoms or diarrhea, which is the other site of where a gram negative infection could be. His UA is also negative and he doesnt have any urinary symptoms. No other rashes or localizing signs. # E coli bacteremia # Severe sepsis # Fluid collection on MRI L spine # Recent lumbar fusion - Favor drainage and culture of collection seen on MRI as possible source of his bacteremia - can consider getting CTAP w IV contrast to look for other sources, however he doesnt have any abdominal symptoms - f/u BCX - continue CTX 2g IV q24h ID will continue to follow. If questions or concerns, contact Infectious Disease Call Center . Loraine Parekh MD [facility], Division of Infectious Diseases [facility]: [phone] Consultation Information Consultation was provided via telemedicine using two-way real-time interactive telecommunication between the patient and the telemedicine provider. For the duration of the visit, the provider was performing the assessment from a different facility than the patient. This includesuse of bluetooth stethoscope forauscultationperformed by the telepresenter that the telemedicine provider can hear if described in the physical exam. 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 (Phone Number For Physician Use Only) After establishing a telemedicine visit, patient was: Patient was verified with two unique identifiers, Patient/authorized rep acknowledged consent and under standing and Gave permission to continue telehealth session Time Spent with Patient: Initial => 75 min History of Present Illness Reason for Consultation: bacteremia, recent lumbar surgery Attending Physician: Renard Moya, History of Present Illness 74yo M with h/o giant cell arteritis (on tocilizumab), amaurosis fugax, hypothyroidism, HTN, HLD, lumbar radiculopathy s/p L4-S1 fusion, L3 kyphoplasty, revision posterior spinal fusion L1-L4 on 06/05 who presented on 06/13 with acute onset of lower back pain. He says that postop, he was doing well and did not require much of pain medications. However, on Tuesday evening on 06/11, he developed significant pain across his lower back. No injuries. The pain got worse on Tuesday and decided to come in on Tuesday. He had fevers yesterday and shaking chills. No drainage reported from incision. He has not had any numbness or tingling. No recent injuries or trauma. He did have some vomiting yesterday but no abdominal pain, diarrhea. No oral sores. No chest discomfort. His only other hardware is 2 pins/screws in his left wrist, no issues at this site at this time. Here, he was febrile to 38.8, hypotensive to 80s with improvement. Satting well on RA. Initial labs with WBC 17.78 > 25. Cr 1.18. AST/ALT wnl. CRP < 0.5 however now 9.42. UA with 0-5 WBC. RPP negative. BCX with GNR PCR noted E coli. XR spine negative for acute abnormality. MRI L spine with postoperative fluid collection extending to the superficial tissues measuring 8.4 cm in length, likely seroma. CXR negative. He has been getting CTX. ID consulted 06/14. Allergies Allergy/AdvReac Type Severity Reaction Status Date / Time Influenza Virus Vaccines Allergy Severe THROAT Verified 06/05/24 06:41 SWELL, LIPS SWELLING Penicillins Allergy Severe SWELLING,HIVES Verified 06/05/24 06:41 RASH morphine AdvReac Severe SEVERE Verified 06/05/24 06:41 HEADACHE and Nausea lisinopril AdvReac Intermediate COUGH Verified 06/05/24 06:41 Home Medications Medication Instructions Recorded Confirmed Type levothyroxine 150 mcg tablet 150 mcg PO QAM #90 tabs 06/27/23 06/13/24 Rx (Synthroid) vit C 250 mg-vit E 90 mg-zinc 40 1 tab PO BID 07/11/23 06/13/24 History mg-copper 1 [id number] capsule (PreserVision AREDS-2) hydrochlorothiazide 12.5 mg tablet 12.5 mg PO QAM #90 tabs 04/18/24 06/13/24 Rx irbesartan 300 mg tablet 300 mg PO QAM #90 tabs 04/18/24 06/13/24 Rx tocilizumab 162 mg/0.9 mL 162 mg (0.9 mL) subcut Q7D #4 mL 05/11/24 06/13/24 Rx subcutaneous pen injector (Actemra ACTPen) aspirin 81 mg tablet,delayed 81 mg PO QAM 05/28/24 06/13/24 History release rosuvastatin 40 mg tablet 40 mg PO HS 05/28/24 06/13/24 History zoledronic acid 5 mg/100 mL in 5 ea IV YEARLY 06/05/24 06/13/24 History mannitol 5 %-water intravenous piggybck (Reclast) oxycodone 5 mg tablet 5 mg PO Q4H PRN Severe Pain (Scale 06/13/24 06/13/24 History Score 7-10) tramadol 50 mg tablet 50 mg PO Q6H PRN Moderate Pain 06/13/24 06/13/24 History (Scale Score 5-6) Patient History Medical History Chronic back pain Compression fracture of L2 reason for upcoming sx 06/04/24 Giant cell arteritis hx, gets weekly injection to help with this History of anemia History of basal cell carcinoma of skin History of COVID-19 Diagnosed via home test 04/07/22--mild symptoms, no symptoms now History of left foot drop "no current issues per pt, had in the past due to surgery" History of renal stone Hypercholesteremia Hypertension Hypothyroidism Macular degeneration of left eye Polymyalgia rheumatica SVT (supraventricular tachycardia) follows with [facility]ology Vertigo hx Surgical History History of appendectomy History of basal cell carcinoma (BCC) excision History of cataract surgery bilateral History of colonoscopy History of cystoscopy w/laser destruction kidney stone and stent placement; 05/10/22: LMA#5. History of hernia repair x2 on right side History of lumbar spinal fusion x2--12/02/22 Dr. Moya @ [facility] and 2000 History of open reduction and internal fixation (ORIF) procedure (~09/08/01) left wrist History of temporal artery biopsy History of tonsillectomy and adenoidectomy Hx laparoscopic cholecystectomy (05/27/22) Laparoscopic Cholecystectomy with Cholangiogram - Phu Arreguin MD, FACS S/P laparoscopic hernia repair left Family History Mother Heart disease Stroke syndrome Father Heart disease Myocardial infarction Sister Kidney disease Grandfather Heart disease Unknown Heart disease Other No family history of adverse response to anesthesia Denies family history of Ovarian cancer Prostate cancer Breast cancer Colorectal cancer Social History Smoking Status: Former smoker Tobacco Type: Cigarettes Age Quit Using Tobacco: 33; Smoking End Date: 1982; Second Hand Exposure: No; Do You Dip or Chew Tobacco: No; Tobacco Cessation Education Requested by Patient: No Hx Alcohol Use: No Hx Substance Use: No Preferred Language: Yi Communication Ability: Effective Visual Impairment: No Limitations Hearing Ability: Normal Dialysis Technician Required: No Beliefs That Will Affect Care: None marital status: Current Living Situation: Spouse current occupational status: retired Other Information That Helps Us Care for You: No Feels Safe at Home: Yes Safety Concerns: Feels Safe At This Time Childhood Exposure to Second-Hand Smoke: Yes Diet: regular caffeine: Yes during the past year weight has: remained stable Dental Care, Regularly: Yes Physical Activity Frequency: Daily Seatbelt Use: always Sunscreen Use: Yes Assistive Devices: Hearing Aid - Bilateral Assistive Devices Comment: hearing aids not here at the hospital Review of System 10-point review of systems reviewed and are negative except for as above. Physical Exam Physical Exam: General: Awake, alert, no acute distress HEENT: NC/AT, EOMI, mmm, no oral lesions Neck: supple Lungs: respirations non-labored Heart: nl peripheral perfusion Abdomen: soft, NT/ND Back: surgical site without erythema, drainage noted from prior drain site Ext: no LE edema Skin: no rash Neuro: moving all extremities Results & Data Vital Signs (Past 12 Hours) Vital Signs Temp Pulse Pulse Resp BP Pulse Ox O2 Del Method 06/14/24 08:00 36.6 C 79 18 130/69 97 Room Air 06/14/24 07:00 79 06/14/24 03:38 36.9 C 86 16 107/64 96 Room Air 06/14/24 00:27 36.8 C 06/13/24 23:59 36.9 C 06/13/24 23:28 82 Laboratory Results Labs reviewed. Diagnostic Findings Imaging reviewed.
--- NOTE | 2024-06-14 11:55 | Orthopedic Progress Note ---
Date of Service June 14, 2024 Assessment & Plan (1) Gram-negative bacteremia: Plan: At this time I would like to obtain a CAT scan of the lumbar spine for further assessment of the instrumentation and potential loosening particularly at the S1 levels. He may have sacral insufficiency fractures explaining his pain patterns. At this point I do not feel there is any indication to I&D his lumbar spine based on today's exam. Admission and Anticipated Discharge Date Admission Date: June 13, 2024 Subjective Patient has no back or leg pain when lying supine. He denies any numbness or tingling in lower extremities. Upon standing he has pain at the lumbosacral junction with radiation down his legs. Quite limiting in nature. He obtained some relief when leaning forward on a walker. He is able to tolerate sitting in a chair for several hours without limitation. Physical Exam Physical Exam: On exam incision is still without erythema or drainage. It is nontender to palpation. He has no pain to palpation of the SI joints trochanteric regions or IT bands. I did have him stand for me. He is obviously uncomfortable. He has excellent strength detailed testing. Results & Data Vital Signs (Past 12 Hours) Vital Signs Temp Pulse Pulse Resp BP Pulse Ox O2 Del Method 06/14/24 08:00 36.6 C 79 18 130/69 97 Room Air 06/14/24 07:00 79 06/14/24 03:38 36.9 C 86 16 107/64 96 Room Air 06/14/24 00:27 36.8 C 06/13/24 23:59 36.9 C
[2024-06-14] MEDS: ACETAMINOPHEN 1,000 MG/100 ML VIAL IV PRN (12:18)
--- NOTE | 2024-06-14 13:04 | Hospitalist Progress Note ---
Date of Service June 14, 2024 Assessment & Plan (1) E. coli septicemia: Plan: With septic shock with fever of 38.8 C on arrival, leukocytosis, tachycardia, hypotension, and now with E. coli bacteremia. CRP now elevated as well at 9 Unclear source but given new onset severe lower back pain, suspect infected seroma/wound from recent back surgery UA negative but given today's red urine and dysuria--> check repeat UA and urine cx-he did have a Davies last admission and is at risk for prostatitis/UTI BioFire negative, CXR negative Consult ID appreciated Spine Surgery may take him to the OR tomorrow for a washout-NPO after midnight and checking Lumbar spine CT Continue ceftriaxone and follow final cultures Tylenol prn rigors/fever, continue IVFs and give bolus for tachycardia (2) S/P lumbar fusion: Plan: Lumbar fusion with Dr. Moya on 06/05 Patient returned to the ED due to acute onset of back pain the evening of 06/12 and fever the morning of 06/13 up to 38.8 C Possible washout tomorrow pain control prn (3) GCA (giant cell arteritis): Plan: last dose of tocilizumab was on 05/30-on hold for recent back surgery and now for infection follows with Rheum Dr. Florence (4) SVT (supraventricular tachycardia): Plan: a history of such, none here thus far follow on tele (5) Anemia: Plan: hgb down to 9.8 from 12 on admission but likely hemodilutional from copious IVFs follow CBC, no bleeding noted from anywhere (6) Hypertension: Plan: with septic shock, hold home irbesartan and HCTZ (7) Hypothyroidism: Plan: continue home levothyroxine (8) Restrictive lung disease: Plan: secondary to kyphosis as per PULM (9) Hypercholesterolemia: Plan: resume home statin-unclear why this was held on admission Plan DVT proph-SCDs Dispo-continued stay on PCU Admission and Anticipated Discharge Date Admission Date: June 13, 2024 Subjective Pt had an episode of rigors, face turned red, and had difficulty speaking for a brief time shortly after getting up and moving about with Ortho surgeon for gait testing. This resolved after resting and apparently he had a similar episode yesterday. Spiked a fever later in the day. Is eating and drinking, no diarrhea or abd pains, no nausea. Denies chest pain, SOB, cough, sinus congestion, headache. Has back pain much worse with standing, improved with sitting. He does report that today his urine seems red in color. Nurse reports the urine she saw was valente in color. Tele with NSR, ST into the 120s at times. Physical Exam Constitutional: WD/WN, vitals as above Eyes: PERRL, conjunctivae normal, anicteric sclerae Respiratory: normal respiratory effort, lungs clear to auscultation Cardiovascular: RRR, no murmur, no edema Skin: back with small area of fluctuance in superior wound area, lower back with dressing in place c/d/i no erythema Neurologic: CN's II-XI intact bilaterally and awake; no focal motor deficits and not confused Psychiatric: A+Ox3, euthymic affect Results & Data Results & Data Vital Signs (Past 12 Hours) Vital Signs Temp Pulse Pulse Resp BP BP Pulse Ox 06/14/24 11:55 36.5 C 84 16 105/68 98 06/14/24 08:00 36.6 C 79 18 130/69 97 06/14/24 07:00 79 06/14/24 03:38 36.9 C 86 16 107/64 96 O2 Del Method 06/14/24 11:55 Room Air 06/14/24 08:00 Room Air 06/14/24 07:00 06/14/24 03:38 Room Air Laboratory Results CBC, BMP CRP, blood cultures, UA reviewed PG Care Time/CCT Total # of Minutes Spent Total Time Spent with Patient: Total time spent is greater than 50% in coordination of care (as documented) at patient's floor/unit and/or counseling patient: Coding Level of Care Code 64774 SUB INP/OBS CARE 3/50MIN Diagnoses E. coli septicemia A41.51 S/P lumbar fusion Z98.1 GCA (giant cell arteritis) M31.6 SVT (supraventricular tachycardia) I47.1 Anemia D64.9 Essential hypertension I10 Hypertension type: essential hypertension Hypothyroidism E03.9 Restrictive lung disease J98.4 Hypercholesterolemia E78.00 (6) Hypertension Hypertension type: essential hypertension Qualified Code(s): I10 - Essential (primary) hypertension
[2024-06-14 15:05] LABS: Appearance Urine Clear (Clear); Bilirubin Urine Negative (Negative); Blood Urine Negative (Negative); Color Urine Yellow; Glucose Urine UA Negative (Negative); Ketones Urine Negative (Negative); Leukocyte Esterase Urine Negative (Negative); Nitrite Urine Negative (Negative); Protein Urine Negative (Negative); Specific Gravity Urine 1.016 (1.000-1.030); Urobilinogen Urine Negative (Negative)
--- NOTE | 2024-06-14 16:00 | CT Scan Report ---
CT SCAN OF THE LUMBAR SPINE WITHOUT IV CONTRAST CLINICAL HISTORY: Low back pain. COMPARISON STUDY: MRI of the lumbar spine dated 06/13/2024. CT scan of the lumbar spine dated 4. TECHNIQUE: CT scan of the lumbar spine was performed from the lower thoracic spine to the sacrum. Annmarie ges are reviewed in the axial, sagittal, and coronal planes. IV contrast was not administered for thi s examination. A dose lowering technique was utilized adhering to the principles of ALARA. The examin ation is degraded by streak artifact from extensive metallic spinal hardware. CT DOSE: 1239.03 mGy.cm FINDINGS: The skeletal structures are osteopenic. There is a right transverse process fracture of L3, likely on a postsurgical basis. A late subacute 3 column fracture is again seen at L2. Fracture exte nds through the fused posterior elements at L1-L2. There has been interval vertebroplasty of the L2 c ompression fracture. There is also mild chronic superior endplate compression deformity of L3. Verteb ral body height is otherwise maintained throughout the lumbar spine. Alignment is preserved. There is straightening of the lumbar lordosis. Anterior and lateral marginal osteophytes are seen throughout. There is postsurgical change from laminectomy and posterior fusion seen extending from T12 through S 1. Interpedicular screws are present at all levels with the exception of L5 where they have been ayo alicia. The orthopedic hardware appears intact. Lucency around the interpedicular screws at S1 suggests loosening. No lytic or blastic lesion is seen. There has been discectomy at L4-L5 and L5-S1. There is no CT evidence of large disc herniation or high-grade central canal stenosis. Fatty atrophy is noted in the paraspinous musculature. A large postoperative gas and fluid containing collection is seen ar ound the posterior elements extending from at least T12 to L2. This measures approximately 8.5 x 4 x 6 cm and extends into the subcutaneous tissues. This does not appear to cause appreciable mass effect on the thecal sac. A 5 mm nonobstructing calculus is noted in the left kidney. There is no retroperi toneal lymphadenopathy. The abdominal aorta is normal in caliber noting mild to moderate atherosclero tic calcification. IMPRESSION: 1. Again seen is a late subacute 3 column fracture of L2 which extends through the posterior elements . There has been interval vertebroplasty at this level and spinal fusion. 2. The orthopedic hardware appears intact. 3. There is a right transverse process fracture of L3, likely on a postsurgical basis. 4. A postsurgical fluid collection is again seen posterior to the thecal sac at the operative levels, likely representing a seroma. This was better assessed on yesterday's MRI. 5. Lucency around the interpedicular screws in S1 suggests loosening. 6. Left-sided nephrolithiasis. 7. Additional findings as above. ACT 112: Negative or not required by law. Dictated: 06/14/2024 1:56 PM Transcribed: 06/14/2024 2:19 PM Caro [id number] JAMIE_Ford [id number] Electronically signed by: Coy Chávez M.D. 06/14/2024 3:59 PM
[2024-06-14] MEDS: PLASMA-LYTE A 250 ML IV ONE (16:58)
[2024-06-14] MEDS: cefTRIAXone SODIUM 2,000 MG/50 ML BAG IV SCH (21:30)
[2024-06-15 06:14] LABS: BUN Creatinine Ratio 28.6 (10-20); Calcium 7.6 mg/dl (8.6-10.3); Est GFR (African American) 60.6 ml/min; Est GFR (Non-African American) 52.3 ml/min; Potassium 4.5 mmol/L (3.5-5.1)
[2024-06-15 06:45] LABS: Basophils # (auto) 0.05 K/uL (0.00-0.20); Basophils % (auto) 0.2 %; Dohle Bodies 3+; Eosinophils # (auto) 0.17 K/uL (0.00-0.50); Eosinophils % (auto) 0.8 %; Hematocrit (blood only) 26.7 % (42.0-52.0); Hemoglobin 9.1 g/dl (14.0-18.0); Immature Granulocytes # (auto) 0.82 K/uL (0.01-0.20); Immature Granulocytes % (auto) 3.7 %; Lymphocytes # (auto) 0.57 K/uL (1.20-3.40); Lymphocytes % (auto) 2.6 %; Mean Corpuscular Hgb Conc 34.1 g/dL (32.0-36.0); Mean Corpuscular Volume 88.1 fL (80.0-100.0); Monocytes # (auto) 1.24 K/uL (0.11-0.59); Monocytes % (auto) 5.6 %; Neutrophils # (auto) 19.42 K/uL (1.40-6.50); Neutrophils % (auto) 87.1 %; Platelet Count 68 K/uL (130-400); Platelet Estimate Decreased (Normal); RDW Coefficient of Variation 14.7 % (11.5-14.5); RDW Standard Deviation 48.3 fL (36.4-46.3); Red Blood Count 3.03 M/uL (4.70-6.10); White Blood Count 22.27 K/ul (4.8-10.8)
--- NOTE | 2024-06-15 09:27 | XRay Report ---
XR chest 1V portable CLINICAL HISTORY: Concern for pulmonary edema. COMPARISON STUDY: Chest CT December 16, 2023. Chest radiograph June 13, 2024. FINDINGS: There is no pneumothorax or pleural effusion. Linear right midlung density may reflect atel ectasis or trace fissural fluid. Pulmonary vascular congestion with suspected mild pulmonary edema robles s developed. Calcified nodules are benign. There are calcified thoracic lymph nodes. The heart is mil dly enlarged. IMPRESSION: Cardiomegaly. Interval development of mild pulmonary edema. ACT 112: Negative or not required by law. Electronically signed by: Steve Bowden M.D. 06/15/2024 9:26 AM
--- NOTE | 2024-06-15 10:28 | Infectious Disease Progress Nt ---
Date of Service June 15, 2024 Assessment & Plan (1) E coli bacteremia: (2) Fever: (3) Hypotension: (4) S/P lumbar fusion: Plan 74yo M with h/o giant cell arteritis (on tocilizumab), amaurosis fugax, hypothyroidism, HTN, HLD, lumbar radiculopathy s/p L4-S1 fusion, L3 kyphoplasty, revision posterior spinal fusion L1-L4 on 06/05 who presented on 06/13 with acute onset of lower back pain since 06/11. Here, he was febrile to 38.8, hypotensive to 80s with improvement. Satting well on RA. Initial labs with WBC 17.78 > 25. Cr 1.18. AST/ALT wnl. CRP < 0.5 however now 9.42. UA with 0-5 WBC. RPP negative. BCX with E coli. XR spine negative for acute abnormality. MRI L spine with postoperative fluid collection extending to the superficial tissues measuring 8.4 cm in length, likely seroma. CXR negative. He has been getting CTX. Drainage catheter was removed. ID consulted 06/14. Primary complaint is back pain without other localizing symptoms/signs. Has 2 pins/screw in left wrist, unremarkable. CT L spine done 06/14 which showed late subacute 3 column fracture of L2 with ve rtobroplasty and fusion, hardware intact, postsurgical fluid collection seen posterior to thecal sac at operative levels likely representing seroma; lucency around interpedicular screws in S1 suggests loosening; left sided nephrolithiasis. Patient febrile again on the evening of 06/14. CXR 06/15 with pulmonary edema. Patient has ongoing fevers with high WBC in 20s. No other complaints today aside from back pain and some SOB, which is likely related to edema seen on CXR. He doesnt have any abdominal discomfort. I dont see any other localizing sites for his bacteremia aside from his c/o back pain. Still favor addressing possible ?superinfection of collection (read as seroma by rads). Otherwise, if this is not felt to be the source, would pursue CTAP w IV for workup of source as this is the next likely site of a gram negative bacteremia. I will also repeat BCx. # E coli bacteremia # Severe sepsis # Fluid collection on MRI L spine # Recent lumbar fusion - Favor drainage and culture of collection seen on MRI as possible source of his bacteremia - would also obtain CTAP w IV contrast to look for other sources - Joanne ordered repeat blood cx - continue CTX 2g IV q24h ID will continue to follow. If questions or concerns, contact Infectious Disease Call Center . Loraine Parekh MD [facility], Division of Infectious Diseases [facility]: [phone] Admission and Anticipated Discharge Date Admission Date: June 13, 2024 Subjective Subsequent visit was provided via telemedicine using two-way real-time interactive telecommunication between the patient and the telemedicine provider. For the duration of the visit, the provider was performing the assessment from a different facility than the patient. This includesuse of bluetooth stethoscope forauscultationperformed by the telepresenter that the telemedicine provider can hear if described in the physical exam. [employer] contact information: Please call [facility] Call Center [phone]. (Phone Number For Physician Use Only) After establishing a telemedicine visit, patient was: Patient was verified with two unique identifiers, Patient/authorized rep acknowledged consent and understanding and Gave permission to continue telehealth session Time Spent with Patient: Subsequent => 35 min Patient has ongoing back pain. Says he has trouble getting around due to pain. No numbness or tingling. No abdominal pain, diarrhea, dysuria. No neck pain. No rashes, joint pains. He has started feeling a little SOB after he got a lot of IVFs in the hospital. Physical Exam Physical Exam: General: Awake, alert, no acute distress HEENT: NC/AT, EOMI, mmm, no oral lesions Neck: supple Lungs: respirations non-labored Heart: nl peripheral perfusion Abdomen: soft, NT/ND Back: surgical site without erythema, upper spine nontender Ext: no LE edema Skin: no rash Neuro: moving all extremities Results & Data Vital Signs (Past 12 Hours) Vital Signs Temp Pulse Pulse Resp BP Pulse Ox O2 Del Method 06/15/24 08:05 36.9 C 79 18 120/76 95 Room Air 06/15/24 07:24 75 06/15/24 05:52 36.6 C 77 20 118/74 96 Room Air 06/15/24 03:02 37.0 C 84 16 121/69 93 Room Air 06/14/24 23:00 92 H 06/14/24 22:43 37.2 C 96 H 14 103/59 L 93 Room Air Laboratory Results Labs reviewed. Diagnostic Findings Imaging reviewed.
--- NOTE | 2024-06-15 14:10 | Orthopedic Progress Note ---
Date of Service June 15, 2024 Assessment & Plan (1) S/P lumbar fusion: Plan: Discussion today with the patient and his . After review of his imaging I do have some concern that his lumbosacral junctional pain could be due to loosening of the hardware at the S1 level. We know he has osteoporotic bone and is at risk for such an event. This could be the etiology of his pain. We will continue with antibiotic treatment and therapy to assess his progress. If he fails to improve in the next 48 hours we may consider a revision procedure for loosening of hardware. Patient understands agrees. Admission and Anticipated Discharge Date Admission Date: June 13, 2024 Subjective Patient's back pain is controlled as long as he is sitting. He is tolerating physical therapy. He still gets pain at the lumbosacral junction with radiation down his legs with certain positions. Physical Exam Physical Exam: On exam he is able to sit of the bed several difficulty. To palpation of the paravertebral musculature along the incision demonstrates no pain. There is no erythremia. He has good strength testing otherwise. Results & Data Vital Signs (Past 12 Hours) Vital Signs Temp Pulse Pulse Resp BP Pulse Ox O2 Del Method 06/15/24 11:58 36.4 C L 97 H 17 125/79 95 Room Air 06/15/24 09:00 Room Air 06/15/24 08:05 36.9 C 79 18 120/76 95 Room Air 06/15/24 07:24 75 06/15/24 05:52 36.6 C 77 20 118/74 96 Room Air 06/15/24 03:02 37.0 C 84 16 121/69 93 Room Air
[2024-06-15 15:01] LABS: Hematocrit (blood only) 30.1 % (42.0-52.0); Hemoglobin 10.3 g/dl (14.0-18.0)
[2024-06-15] MEDS: ROSUVASTATIN CALCIUM 20 MG TAB PO SCH (20:25)
--- NOTE | 2024-06-15 22:35 | Hospitalist Progress Note ---
Date of Service June 15, 2024 Assessment & Plan (1) E. coli septicemia: Plan: With septic shock with fever of 38.8 C on arrival, leukocytosis, tachycardia, hypotension, and now with E. coli bacteremia. CRP now elevated as well at 9 Unclear source but given new onset severe lower back pain, suspect infected seroma/wound from recent back surgery UA negative but given today's red urine and dysuria--> check repeat UA and urine cx-he did have a Davies last admission and is at risk for prostatitis/UTI BioFire negative, CXR negative Consult ID appreciated Spine Surgery may take him to the OR next week if no improvement. Continue ceftriaxone and follow final cultures Tylenol prn rigors/fever, continue IVFs and give bolus for tachycardia Symptoms have improved after drainage of serosanguineous fluid removed. (2) S/P lumbar fusion: Plan: Lumbar fusion with Dr. Moya on 06/05 Patient returned to the ED due to acute onset of back pain the evening of 06/12 and fever the morning of 06/13 up to 38.8 C pain control prn (3) GCA (giant cell arteritis): Plan: last dose of tocilizumab was on 05/30-on hold for recent back surgery and now for infection follows with Rheum Dr. Florence (4) SVT (supraventricular tachycardia): Plan: a history of such, none here thus far follow on tele (5) Anemia: Plan: hgb down to 9.8 from 12 on admission but likely hemodilutional from copious IVFs follow CBC, no bleeding noted from anywhere (6) Hypertension: Plan: with septic shock, hold home irbesartan and HCTZ (7) Hypothyroidism: Plan: continue home levothyroxine (8) Restrictive lung disease: Plan: secondary to kyphosis as per PULM (9) Hypercholesterolemia: Plan: resume home statin-unclear why this was held on admission Plan DVT proph-SCDs Dispo-continued stay on PCU Admission and Anticipated Discharge Date Admission Date: June 13, 2024 Subjective Patient reports that after being seen by Dr. Moya and PT where area of fluctuance was palpated was palpated during both encounters, he felt a gush of liquid coming out of the surgical site as he sat down to his bed. This occurred at 13:50. Nurse states it was a significant amount of serosanguineous/ non purulent fluid. About 300 ml. Patient reports his back pain has improved significantly since. Review of Systems Review of Systems: All systems reviewed & are unremarkable except as noted in HPI & below Physical Exam Constitutional: WD/WN, vitals as above Eyes: PERRL, conjunctivae normal, anicteric sclerae Respiratory: normal respiratory effort, lungs clear to auscultation Cardiovascular: RRR, no murmur, no edema Skin: lower back with dressing in place c/d/i no erythema Neurologic: CN's II-XI intact bilaterally and awake; no focal motor deficits and not confused Psychiatric: A+Ox3, euthymic affect Results & Data Results & Data Vital Signs (Past 12 Hours) Vital Signs Temp Pulse Pulse Resp BP Pulse Ox O2 Del Method 06/15/24 21:06 Room Air 06/15/24 19:56 36.8 C 98 H 18 130/81 93 Room Air 06/15/24 17:18 36.9 C 93 H 18 132/77 96 Room Air 06/15/24 14:53 84 06/15/24 11:58 36.4 C L 97 H 17 125/79 95 Room Air PG Care Time/CCT Total # of Minutes Spent Total Time Spent with Patient: Total time spent is greater than 50% in coordination of care (as documented) at patient's floor/unit and/or counseling patient: Coding Level of Care Code 70392 SUB INP/OBS CARE 2/35MIN Diagnoses E. coli septicemia A41.51 S/P lumbar fusion Z98.1 GCA (giant cell arteritis) M31.6 SVT (supraventricular tachycardia) I47.1 Anemia D64.9 Essential hypertension I10 Hypertension type: essential hypertension Hypothyroidism E03.9 Restrictive lung disease J98.4 Hypercholesterolemia E78.00 (6) Hypertension Hypertension type: essential hypertension Qualified Code(s): I10 - Essential (primary) hypertension
[2024-06-15 23:10] LABS: Hematocrit (blood only) 29.2 % (42.0-52.0); Hemoglobin 9.9 g/dl (14.0-18.0)
[2024-06-16 06:40] LABS: Hematocrit (blood only) 30.8 % (42.0-52.0); Hemoglobin 10.5 g/dl (14.0-18.0); Mean Corpuscular Hemoglobin 29.8 pg (25.0-34.0); Mean Corpuscular Hgb Conc 34.1 g/dL (32.0-36.0); Mean Corpuscular Volume 87.5 fL (80.0-100.0); Mean Platelet Volume 12.1 fL (9.4-12.4); Platelet Count 72 K/uL (130-400); RDW Coefficient of Variation 14.5 % (11.5-14.5); RDW Standard Deviation 46.5 fL (36.4-46.3); Red Blood Count 3.52 M/uL (4.70-6.10); White Blood Count 16.91 K/ul (4.8-10.8)
[2024-06-16 07:23] LABS: BUN Creatinine Ratio 31.8 (10-20); C Reactive Protein 11.87 mg/dl (0-0.5); Calcium 8.2 mg/dl (8.6-10.3); Creatinine Clr Calc Pharmacy 85.9 ml/min; Est GFR (African American) 99.5 ml/min; Est GFR (Non-African American) 85.8 ml/min; Potassium 4.5 mmol/L (3.5-5.1)
[2024-06-16 07:27] LABS: Basophils # (auto) 0.05 K/uL (0.00-0.20); Basophils % (auto) 0.3 %; Dohle Bodies 1+; Eosinophils # (auto) 0.46 K/uL (0.00-0.50); Eosinophils % (auto) 2.7 %; Immature Granulocytes # (auto) 0.06 K/uL (0.01-0.20); Immature Granulocytes % (auto) 0.4 %; Lymphocytes # (auto) 0.33 K/uL (1.20-3.40); Monocytes # (auto) 0.86 K/uL (0.11-0.59); Monocytes % (auto) 5.1 %; Neutrophils # (auto) 15.15 K/uL (1.40-6.50); Neutrophils % (auto) 89.5 %
[2024-06-16] MEDS: DOCUSATE SODIUM/SENNA 50/8.6MG TAB PO SCH ×2 (08:54→20:14)
--- NOTE | 2024-06-16 09:50 | Orthopedic Progress Note ---
Date of Service June 16, 2024 Assessment & Plan (1) S/P lumbar fusion: Plan: At this time we will continue to reinforce his dressing. Reassess tomorrow tomorrow morning. If continues to have symptoms we will strongly consider I&D and exploration of fusion hardware at the L5-S1 level. Admission and Anticipated Discharge Date Admission Date: June 13, 2024 Subjective Patient's back pain leg symptoms continue to be related to mechanical activity standing and walking. He is comfortable at rest. No strength deficits. No fe rose or chills. Physical Exam Physical Exam: Patient is sitting up at the bedside. Is comfortable. Good strength testing Results & Data Vital Signs (Past 12 Hours) Vital Signs Temp Pulse Pulse Resp BP Pulse Ox O2 Del Method 06/16/24 08:13 36.9 C 96 H 18 135/83 97 Room Air 06/16/24 07:38 97 H 06/15/24 23:01 88 06/15/24 22:58 37.4 C 88 18 143/75 H 96 Room Air
[2024-06-16] MEDS: OPTIRAY 320 100ml IV ONE (10:08)
--- NOTE | 2024-06-16 13:27 | Hospitalist Progress Note ---
Date of Service June 16, 2024 Assessment & Plan (1) E. coli septicemia: Plan: With septic shock with fever of 38.8 C on arrival, leukocytosis, tachycardia, hypotension, and with E. coli bacteremia. CRP became elevated at 11, Procal elevated at 6 Unclear source but given new onset severe lower back pain, suspect infected seroma/wound from recent back surgery UA negative on admission and repeat UA and urine cx remain no growth--> he did have a Davies last admission and is at risk for prostatitis/UTI BioFire negative, CXR negative for PNA CT abd/pel ordered to assess for intra-abd source of infection--> results pending-will follow Consult ID appreciated Spine Surgery likely taking him to the OR on Tuesday for wash out and for loosening of sacral screws which may be causing pain Continue ceftriaxone and follow final cultures Tylenol prn rigors/fever, dcd IVFs Follow repeat BCxs from 06/15 (2) S/P lumbar fusion: Plan: Lumbar fusion with Dr. Moya on 06/05 Patient returned to the ED due to acute onset of back pain the evening of 06/12 and fever the morning of 06/13 up to 38.8 C pain control prn (3) Thrombocytopenia: Plan: Platelets down to uzma of 68, now trending back upwards. Not receiving any heparin products. Suspect secondary to sepsis follow CBC (4) GCA (giant cell arteritis): Plan: last dose of tocilizumab was on 05/30-on hold for recent back surgery and now for infection follows with Rheum Dr. Florence (5) SVT (supraventricular tachycardia): Plan: a history of such, none here thus far follow on tele (6) Anemia: Plan: hgb down to 9.8 from 12 on admission but likely hemodilutional from copious IVFs . 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 Is having frequent drainage through his dressing on lower back. Denies CP, SOB. has not moved his bowels since admission, no abd pain Tele with NSR, rates 70-90s Physical Exam Constitutional: WD/WN, vitals as above Respiratory: normal respiratory effort, lungs clear to auscultation Cardiovascular: RRR, no murmur, no edema Gastrointestinal (Abdomen): normal bowel sounds, soft, nontender, no hepatosplenomegaly Musculoskeletal: lower back with dressing c/d/i, superior incision no erythema Neurologic: awake; no focal motor deficits and not confused Psychiatric: A+Ox3, euthymic affect Results & Data Results & Data Vital Signs (Past 12 Hours) Vital Signs Temp Pulse Pulse Resp BP Pulse Ox O2 Del Method 06/16/24 11:18 36.8 C 65 18 115/67 97 Room Air 06/16/24 08:13 36.9 C 96 H 18 135/83 97 Room Air 06/16/24 07:38 97 H Laboratory Results CBC, BMP, CRP, Procal, blood cxs reviewed Urine cx reviewed Diagnostic Findings CT abd/pel images reviewed, Rad report not compelted yet PG Care Time/CCT Total # of Minutes Spent Total Time Spent with Patient: Total time spent is greater than 50% in coordination of care (as documented) at patient's floor/unit and/or counseling patient: Coding Level of Care Code 52881 SUB INP/OBS CARE 2/35MIN Diagnoses E. coli septicemia A41.51 S/P lumbar fusion Z98.1 Thrombocytopenia D69.6 GCA (giant cell arteritis) M31.6 SVT (supraventricular tachycardia) I47.1 Anemia D64.9 Essential hypertension I10 Hypertension type: essential hypertension Hypothyroidism E03.9 Restrictive lung disease J98.4 Hypercholesterolemia E78.00 (7) Hypertension Hypertension type: essential hypertension Qualified Code(s): I10 - Essential (primary) hypertension
--- NOTE | 2024-06-16 14:16 | CT Scan Report ---
Tommy Gilbert CT SCAN OF THE ABDOMEN AND PELVIS WITH IV CONTRAST CLINICAL HISTORY: Escherichia coli bacteremia. COMPARISON STUDY: CT lumbar spine dated 06/14/2024. MRI of the lumbar spine dated 06/13/2024. Abdomina l CT dated 04/21/2022. TECHNIQUE: Following the IV administration of 92 cc of Optiray 320, CT scan of the abdomen and pelvi s is performed from the lung bases to the proximal femora. Images are reviewed in the axial, sagittal , and coronal planes. IV contrast was administered without complication. A dose lowering technique wa s utilized adhering to the principles of ALARA. FINDINGS: Lung bases: The heart is mildly enlarged and without pericardial effusion. The coronary arteries are densely calcified. There is a small hiatal hernia. Calcified hilar nodes are partially imaged. There are trace pleural effusions. Scarring/atelectasis is noted at the lung bases. There are scattered shadia cified granulomas. No airspace consolidation is seen typical for pneumonia. Intralobular septal thick ening is noted at the lung bases. Liver: The contrast-enhanced liver is normal in size, contour, and attenuation. There is no intrahepa tic biliary ductal dilatation. The hepatic veins and portal veins are patent. Gallbladder: Surgically absent noting clips in the gallbladder fossa. Spleen: Normal in size and attenuation. There are calcified splenic granulomas. Pancreas: Unremarkable. Adrenal glands: Unremarkable. Kidneys: The contrast enhanced kidneys are normal in size and without hydronephrosis. The kidneys enh ance symmetrically. There are at least 2 nonobstructing left renal calculi which measure up to 5 mm. A 3 mm nonobstructing calculus is seen in the lower pole of the right kidney. No ureteral stone is id entified. Abdominal vasculature: The abdominal aorta is normal in course and caliber noting moderate atheroscle rotic calcification. Bowel: There is mild colonic diverticulosis without CT evidence of acute diverticulitis. No bowel obs truction is seen. Moderate fecal retention is seen throughout the colon. The appendix is not identif ied and reported surgically absent. Peritoneum: There is no intraperitoneal free air or abdominal ascites. There is a fat-containing umbi lical hernia. Lymphadenopathy: None. Pelvic viscera: The prostate gland is enlarged and heterogeneous. The bladder wall is thickened/trabe culated indicating chronic outlet obstruction. Skeletal structures: The skeletal structures are osteopenic. Again seen is a compression deformity of L2 status post vertebroplasty. There is also mild chronic deformity of L3. There is a late subacute 3 column fracture of L2 as above which extends through the posterior elements of L1 and L2. This is u nchanged from recent spinal CT scan. There is postsurgical change from laminectomy and posterior fusi on seen at T12-L1. Interpedicular screws are present at all levels with the exception of L5 where douglas magalys has been removed. Lucency around the intramedullary screws in S1 suggests loosening. There is a right transverse process fracture of L3. There is a peripherally enhancing gas and fluid containing collection in the subcutaneous soft tissues extending to the laminectomy site at T11-L1. This measure s 7.7 x 4.7 x 3.6 cm seen on axial image #70. No lytic or blastic lesions are seen. IMPRESSION: 1. No acute intraperitoneal abnormality is identified in the abdomen or pelvis. 2. Chronic posttraumatic and postsurgical changes of the lumbar spine as above noting multilevel spin al fusion, vertebroplasty, and a right transverse process fracture of L3. 3. There is a large peripherally enhancing gas and fluid containing collection in the subcutaneous so ft tissues of the lower back at the level of T11-L1 which extends to the laminectomy site. This reach es the dermal surface and may represent a postsurgical seroma/hematoma. The sterility of this fluid c ollection cannot be assessed by imaging and abscess is not excluded. Clinical correlation will be ess ential. 4. Cardiomegaly and trace pleural effusions. 5. Intralobular septal thickening at the lung bases suggests fluid overload/congestive change. Corre late clinically. 6. Colonic diverticulosis without CT evidence of acute diverticulitis. 7. Additional findings as above. ACT 112: Negative or not required by law. Electronically signed by: Coy Chávez M.D. 06/16/2024 11:20 AM
[2024-06-16] MEDS: POLYETHYLENE (MIRALAX) 17 GM PACK PO SCH (14:33)
[2024-06-17 07:30] LABS: Basophils # (auto) 0.06 K/uL (0.00-0.20); Basophils % (auto) 0.6 %; Eosinophils # (auto) 0.68 K/uL (0.00-0.50); Eosinophils % (auto) 7.4 %; Hematocrit (blood only) 31.9 % (42.0-52.0); Hemoglobin 10.4 g/dl (14.0-18.0); Immature Granulocytes # (auto) 0.08 K/uL (0.01-0.20); Immature Granulocytes % (auto) 0.9 %; Lymphocytes # (auto) 0.56 K/uL (1.20-3.40); Lymphocytes % (auto) 6.1 %; Mean Corpuscular Hemoglobin 29.1 pg (25.0-34.0); Mean Corpuscular Hgb Conc 32.6 g/dL (32.0-36.0); Mean Corpuscular Volume 89.1 fL (80.0-100.0); Mean Platelet Volume 11.7 fL (9.4-12.4); Monocytes % (auto) 11.9 %; Neutrophils # (auto) 6.76 K/uL (1.40-6.50); Neutrophils % (auto) 73.1 %; Platelet Count 90 K/uL (130-400); RDW Coefficient of Variation 14.6 % (11.5-14.5); RDW Standard Deviation 47.8 fL (36.4-46.3); Red Blood Count 3.58 M/uL (4.70-6.10); White Blood Count 9.24 K/ul (4.8-10.8)
[2024-06-17 07:52] LABS: BUN Creatinine Ratio 19.8 (10-20); C Reactive Protein 6.49 mg/dl (0-0.5); Calcium 8.6 mg/dl (8.6-10.3); Creatinine Clr Calc Pharmacy 84.6 ml/min; Est GFR (Non-African American) 85.4 ml/min; Potassium 5.8 mmol/L (3.5-5.1)
[2024-06-17] MEDS: CALCIUM GLUCONATE 1,000 MG/60 ML BAG IV ONE (08:44)
[2024-06-17] MEDS: FUROSEMIDE INJ 20 MG/2 ML VIAL IV ONE (08:44)
--- NOTE | 2024-06-17 09:42 | Orthopedic Progress Note ---
Date of Service June 17, 2024 Assessment & Plan (1) S/P lumbar fusion: Plan: At this point the patient is responding to antibiotics. He still struggles with lumbosacral back pain consistent with mechanical transitions. I am concerned he has loosening of instrumentation at the S1 level. We will make the patient n.p.o. after midnight plan for revision fusion L5-S1. He is currently hyperkalemic and is being treated today. Reassess his potassium in the morning. Admission and Anticipated Discharge Date Admission Date: June 13, 2024 Subjective Patient's back pain is controlled when at rest. Still struggling with transitions with severe lumbosacral back pain. Physical Exam Physical Exam: Patient is currently bed. Is neurologically intact. Results & Data Vital Signs (Past 12 Hours) Vital Signs Temp Pulse Pulse Resp BP Pulse Ox O2 Del Method 06/17/24 08:21 36.7 C 89 18 143/90 H 97 Room Air 06/17/24 04:00 36.4 C L 69 16 134/81 96 Room Air 06/16/24 23:07 Room Air 06/16/24 23:06 71 06/16/24 22:51 36.9 C 66 16 153/86 H 97 Room Air
[2024-06-17] MEDS ORDERED: POLYETHYLENE (MIRALAX) 17 GM PACK PO PRN (10:24)
--- NOTE | 2024-06-17 10:31 | Hospitalist Progress Note ---
Date of Service June 17, 2024 Assessment & Plan (1) E. coli septicemia: Plan: With septic shock with fever of 38.8 C on arrival, leukocytosis, tachycardia, hypotension, and with E. coli bacteremia. CRP became elevated at 11, Procal elevated at 6 Unclear source but given new onset severe lower back pain, suspect infected seroma/wound from recent back surgery UA negative on admission and repeat UA and urine cx negative--> he did have a Davies last admission and is at risk for prostatitis/UTI but that doesn't seem to be present BioFire negative, CXR negative for PNA CT abd/pel to assess for intra-abd source of infection--> show fluid collection in back but nothing else acute Consult ID appreciated Now afebrile, leukocytosis resolved, CRP trending downward, repeat BCxs remain NGTD Spine Surgery taking him to the OR on Tuesday for wash out and for loosening of sacral screws which may be causing pain-NPO after midnight Continue ceftriaxone and follow repeat blood cultures Tylenol prn rigors/fever (2) S/P lumbar fusion: Plan: S/p Lumbar fusion with Dr. Moya on 06/05 Patient returned to the ED due to acute onset of back pain the evening of 06/12 and sepsis as above pain control, bowel regimen-change laxatives to prn at his request as he is moving bowels regularly now (3) Thrombocytopenia: Plan: Platelets down to uzma of 68, now continue to be trending back upwards to 90. Not receiving any heparin products. Suspect secondary to sepsis Continue to follow CBC (4) Hyperkalemia: Plan: K+ 5.8 on 06/18, no clear cause found give lasix 20mg IV x 1 now, change to low K+ diet give calcium gluconate 1000mg IV x 1 repeat BMP at 1200 (5) GCA (giant cell arteritis): Plan: last dose of tocilizumab was on 05/30-on hold for recent back surgery and now for infection follows with Rheum Dr. Florence Does have granulomas in spleen and lungs seen on CT abd/pel. Says his [employer] is aware and he was also seen by [facility]-no diagnosis of sarcoidosis or TB that he knows of (6) SVT (supraventricular tachycardia): Plan: a history of such, none here thus far Continue to follow on tele for 1 day post-op and then can likely downgrade to med/surg on POD#2 (7) Anemia: Plan: hgb down to 9.8 from 12 on admission but likely hemodilutional from copious IVFs . Hgb now improved to 10.4 with stopping IVFs follow CBC, no bleeding noted from anywhere except serosanguineous fluid fro back (8) Hypertension: Plan: with septic shock now resolved, holding home irbesartan and HCTZ CXR with some pulm edema, w/ normal POx and no resp distress, but with hyperkalemia, giving lasix (9) Hypothyroidism: Plan: continue home levothyroxine, TSH recently is normal (10) Restrictive lung disease: Plan: secondary to kyphosis as per PULM (11) Hypercholesterolemia: Plan: continue home statin Plan DVT proph-SCDs Dispo-continued stay on PCU, NPO after midnight for lumbar surgery on Tuesday Admission and Anticipated Discharge Date Admission Date: June 13, 2024 Subjective Pt moved his bowels 3 times today and is declining further laxatives. He is having more lower back pain today and took IV dilaudid. No pain radiating down his LEs. He reports he had high potassium in the past too for unknown reasons. He has been eating bananas each day here. Tele with NSR , PACs, rates 70-90s Physical Exam Constitutional: WD/WN, vitals as above Respiratory: normal respiratory effort, lungs clear to auscultation Auscultation: + diminished lung sounds (at bases) Cardiovascular: RRR, no murmur, no edema Gastrointestinal (Abdomen): normal bowel sounds, soft, nontender, no hepatosplenomegaly Skin: lower back with dressing in place soaked with serosanguineous fluid Neurologic: awake; no focal motor deficits Psychiatric: A+Ox3, euthymic affect Results & Data Results & Data Vital Signs (Past 12 Hours) Vital Signs Temp Pulse Pulse Resp BP Pulse Ox O2 Del Method 06/17/24 08:21 36.7 C 89 18 143/90 H 97 Room Air 06/17/24 04:00 36.4 C L 69 16 134/81 96 Room Air 06/16/24 23:07 Room Air 06/16/24 23:06 71 06/16/24 22:51 36.9 C 66 16 153/86 H 97 Room Air Laboratory Results CBC, BMP, magnesium, CRP, BCxs reviewed PG Care Time/CCT Total # of Minutes Spent Total Time Spent with Patient: Total time spent is greater than 50% in coordination of care (as documented) at patient's floor/unit and/or counseling patient: Coding Level of Care Code 82063 SUB INP/OBS CARE 2/35MIN Diagnoses E. coli septicemia A41.51 S/P lumbar fusion Z98.1 Thrombocytopenia D69.6 Hyperkalemia E87.5 GCA (giant cell arteritis) M31.6 SVT (supraventricular tachycardia) I47.1 Anemia D64.9 Essential hypertension I10 Hypertension type: essential hypertension Hypothyroidism E03.9 Restrictive lung disease J98.4 Hypercholesterolemia E78.00 (8) Hypertension Hypertension type: essential hypertension Qualified Code(s): I10 - Essential (primary) hypertension
[2024-06-17 12:25] LABS: Creatinine Clr Calc Pharmacy 81.7 ml/min; Est GFR (African American) 97.6 ml/min; Est GFR (Non-African American) 84.2 ml/min; Potassium 4.6 mmol/L (3.5-5.1)
[2024-06-18] MEDS ORDERED: fentaNYL citrate PF 100 MCG/2 ML VIAL ONE ×2 (08:25→14:09)
[2024-06-18] MEDS ORDERED: ONDANSETRON INJ 2 MG/ML 2 ML VIAL ONE (08:25)
[2024-06-18] MEDS ORDERED: DEXAMETHASONE SOD INJ 4 MG/ML VIAL ONE (08:25)
[2024-06-18] MEDS ORDERED: LIDOCAINE 2% 2 ML VIAL/AMP(20MG/ML) INFIL ONE (08:25)
[2024-06-18] MEDS ORDERED: MIDAZOLAM HCL 1 MG/ML 2ML VIAL ONE (08:25)
[2024-06-18] MEDS ORDERED: ROCURONIUM BROMIDE 10 MG/ML 5 ML VIAL IV ONE (08:25)
[2024-06-18] MEDS ORDERED: PROPOFOL IV EMULSION 10 MG/ML 20 ML VIAL IV ONE (08:25)
[2024-06-18] MEDS ORDERED: GLYCOPYRROLATE 0.2 MG/ML VIAL ONE (08:25)
[2024-06-18] MEDS ORDERED: SUGAMMADEX SODIUM 200 MG/2 ML VIAL IV ONE (08:26)
[2024-06-18 09:04] LABS: Hematocrit (blood only) 33.9 % (42.0-52.0); Hemoglobin 11.1 g/dl (14.0-18.0); Mean Corpuscular Hemoglobin 29.3 pg (25.0-34.0); Mean Corpuscular Hgb Conc 32.7 g/dL (32.0-36.0); Mean Corpuscular Volume 89.4 fL (80.0-100.0); Mean Platelet Volume 11.5 fL (9.4-12.4); Platelet Count 119 K/uL (130-400); RDW Coefficient of Variation 14.7 % (11.5-14.5); RDW Standard Deviation 48.1 fL (36.4-46.3); Red Blood Count 3.79 M/uL (4.70-6.10); White Blood Count 7.31 K/ul (4.8-10.8)
[2024-06-18 09:13] LABS: BUN Creatinine Ratio 17.7 (10-20); Calcium 8.9 mg/dl (8.6-10.3); Est GFR (African American) 89.9 ml/min; Est GFR (Non-African American) 77.6 ml/min; Magnesium 1.9 mg/dl (1.7-2.4); Potassium 5.5 mmol/L (3.5-5.1)
[2024-06-18 09:17] LABS: ANC (manual) 5.26 K/uL (1.4-6.5); Eosinophils # (manual) 0.66 K/uL (0-0.50); Eosinophils % (manual) 9 %; Lymphocytes # (manual) 0.73 K/uL (1.2-3.4); Lymphocytes % (manual) 10 %; Metamyelocytes # (manual) 0.07 K/uL (0-0); Metamyelocytes % (manual) 1 %; Monocytes # (manual) 0.51 K/uL (0.11-0.59); Monocytes % (manual) 7 %; Neutrophils # (manual) 5.26 K/uL (1.40-6.50); Neutrophils % (manual) 72 %; Plasma Cells # (manual) 0.07 K/uL (0-0); Plasma Cells % (manual) 1 %
[2024-06-18] MEDS: FUROSEMIDE INJ 20 MG/2 ML VIAL IV ONE (11:01)
[2024-06-18] MEDS: LACTATED RINGER'S 1,000 ML IV SCH (11:20)
[2024-06-18] MEDS: ceFAZolin 2000MG 2,000 MG/15 ML SYR IV SCH (11:30)
--- NOTE | 2024-06-18 11:45 | Anesthesiology Consultation ---
Date of Service June 18, 2024 Assessment & Plan Chart Review Chart Review: Acceptable Risk for Surgery Consults Requested none History Surgery Operation Date: 06/18/24 07:00 Proposed Procedures p L5-S1 Fusion Revision - Renard Moya DO Height/Weight Height: 5 ft 9 in Weight: 93 kg Allergies Allergy/AdvReac Type Severity Reaction Status Date / Time Influenza Virus Vaccines Allergy Severe THROAT Verified 06/05/24 06:41 SWELL, LIPS SWELLING Penicillins Allergy Severe SWELLING,HIVES Verified 06/05/24 06:41 RASH morphine AdvReac Severe SEVERE Verified 06/05/24 06:41 HEADACHE and Nausea lisinopril AdvReac Intermediate COUGH Verified 06/05/24 06:41 Medications Home Medications Medication Instructions Recorded Confirmed Last Taken levothyroxine 150 mcg tablet 150 mcg PO QAM #90 tabs 06/27/23 06/13/24 06/05/24 04:45 (Synthroid) vit C 250 mg-vit E 90 mg-zinc 40 1 tab PO BID 07/11/23 06/13/24 05/31/24 06:00 mg-copper 1 ex-zvazow-fswczx capsule (PreserVision AREDS-2) hydrochlorothiazide 12.5 mg tablet 12.5 mg PO QAM #90 tabs 04/18/24 06/13/24 06/04/24 06:00 irbesartan 300 mg tablet 300 mg PO QAM #90 tabs 04/18/24 06/13/24 06/05/24 06:00 tocilizumab 162 mg/0.9 mL 162 mg (0.9 mL) subcut Q7D #4 mL 05/11/24 06/13/24 05/23/24 subcutaneous pen injector (Actemra ACTPen) aspirin 81 mg tablet,delayed 81 mg PO QAM 05/28/24 06/13/24 05/31/24 06:00 release rosuvastatin 40 mg tablet 40 mg PO HS 05/28/24 06/13/24 06/04/24 22:00 zoledronic acid 5 mg/100 mL in 5 ea IV YEARLY 06/05/24 06/13/24 10/12/23 mannitol 5 %-water intravenous piggybck (Reclast) oxycodone 5 mg tablet 5 mg PO Q4H PRN Severe Pain (Scale 06/13/24 06/13/24 Unknown Score 7-10) tramadol 50 mg tablet 50 mg PO Q6H PRN Moderate Pain 06/13/24 06/13/24 Unknown (Scale Score 5-6) Active Medications Generic Name Dose Route Start Last Admin Trade Name Freq PRN Reason Stop Dose Admin Acetaminophen 1,000 mg 06/13/24 16:05 06/17/24 20:28 Acetaminophen 500 Mg Tab PO 07/13/24 16:04 1,000 mg Q8H PRN Administration MILD Pain Scale 1,2,3 & Pre PT Aspirin 81 mg 06/14/24 09:00 06/18/24 08:24 Aspirin 81 Mg Ectab PO 07/14/24 08:59 81 mg QAM ISRA[place] Administration Hydromorphone HCl 0.5 mg 06/13/24 16:05 06/14/24 20:55 Hydromorphone Inj 0.5 Mg/0.5 Ml Syr IV 06/27/24 16:04 0.5 mg Q3H PRN Administration MOD pain (scale 4-6) & Pre PT Hydromorphone HCl 1 mg 06/13/24 16:05 06/18/24 06:25 Hydromorphone Inj 1 Mg/Ml Syringe IV 06/27/24 16:04 1 mg Q3H PRN Administration severe pain (scale 7-10) Cefazolin Sodium 2,000 mg in 15 mls @ 3.75 mls/min 06/18/24 11:00 06/18/24 11:30 Ancef 2000mg IV 07/30/24 10:59 3.75 mls/min Q8H IS[place] Administration Lactated Ringer's 1,000 mls @ 15 mls/hr 06/18/24 10:45 06/18/24 11:20 Lr IV 07/18/24 10:44 15 mls/hr .Q24H IS[place] Administration Levothyroxine Sodium 150 mcg 06/14/24 06:30 06/18/24 05:41 Levothyroxine Sodium 150 Mcg Tablet PO 07/14/24 06:29 150 mcg DAILYBB IS[place] Administration Multivitamins/Minerals 1 tab 06/14/24 09:00 06/18/24 08:24 Cerovite Adv Formula Tab PO 07/14/24 08:59 1 tab DAILY ISRAEL Administration Oxycodone HCl 5 mg 06/13/24 16:05 06/15/24 22:02 Oxycodone Hcl Ir 5 Mg Tab (Immediate Release) PO 06/27/24 16:04 5 mg Q4H PRN Administration Severe Pain (Scale Score 7-10) Rosuvastatin Calcium 40 mg 06/15/24 21:00 06/17/24 20:21 Rosuvastatin Calcium 20 Mg Tab PO 07/15/24 20:59 40 mg HS ISRAEL Administration Tramadol HCl 50 - 100 mg 06/13/24 16:05 06/13/24 16:31 Tramadol Hcl 50 Mg Tablet PO 07/13/24 16:04 50 mg Q4H PRN Administration Moderate-Severe pain & Pre PT NPO Date Last Intake of Fluids: 06/18/24 Time Last Intake of Fluids: 09:00 Date Last Intake of Solids: 06/17/24 Time Last Intake of Solids: 17:00 Past Medical History Medical History Chronic back pain Compression fracture of L2 reason for upcoming sx 06/04/24 Giant cell arteritis hx, gets weekly injection to help with this History of anemia History of basal cell carcinoma of skin History of COVID-19 Diagnosed via home test 04/07/22--mild symptoms, no symptoms now History of left foot drop "no current issues per pt, had in the past due to surgery" History of renal stone Hypercholesteremia Hypertension Hypothyroidism Macular degeneration of left eye Polymyalgia rheumatica SVT (supraventricular tachycardia) follows with [place] [facility]ology Vertigo hx Past Family History Family History Mother Heart disease Stroke syndrome Father Heart disease Myocardial infarction Sister Kidney disease Grandfather Heart disease Unknown Heart disease Other No family history of adverse response to anesthesia Denies family history of Ovarian cancer Prostate cancer Breast cancer Colorectal cancer Past Surgical History Surgical History History of appendectomy History of basal cell carcinoma (BCC) excision History of cataract surgery bilateral History of colonoscopy History of cystoscopy w/laser destruction kidney stone and stent placement; 05/10/22: LMA#5. History of hernia repair x2 on right side History of lumbar spinal fusion x2--12/02/22 Dr. Moya @ [facility] and 2001 History of open reduction and internal fixation (ORIF) procedure (~09/08/01) left wrist History of temporal artery biopsy History of tonsillectomy and adenoidectomy Hx laparoscopic cholecystectomy (05/27/22) Laparoscopic Cholecystectomy with Cholangiogram - Phu Arreguin MD, FACS S/P laparoscopic hernia repair left Social History Smoking Status: Former smoker tobacco type: cigarettes Do You Dip or Chew Tobacco: No Smoking End Date: 1982 Hx Alcohol Use: No Alcohol type: beer alcohol intake frequency: other Alcohol Intake Frequency Comment: last drink 09/05/23 Hx Substance Use: No substance use type: does not use Physical Exam Vital Signs Last Vital Signs Temp 36.8 C 06/18/24 11:11 Pulse 71 06/18/24 11:11 Resp 20 06/18/24 11:11 BP 166/90 H 06/18/24 11:11 Pulse Ox 98 06/18/24 11:11 O2 Del Method Room Air 06/18/24 11:11 O2 Flow Rate 2 06/13/24 12:50 Testing Laboratory Results 06/18/24 08:34 06/18/24 08:34 PT 10.8 Seconds (9.0-12.0) 06/13/24 08:26 INR 1.0 (0.9-1.1) 06/13/24 08:26 Urine Color Yellow 06/14/24 12:45 Urine Appearance Clear (Clear) 06/14/24 12:45 Urine pH 5.0 (4.5-7.5) 06/14/24 12:45 Ur Specific [place] 1.016 (1.000-1.030) 06/14/24 12:45 Urine Protein Negative (Negative) 06/14/24 12:45 Urine Glucose (UA) Negative (Negative) 06/14/24 12:45 Urine Ketones Negative (Negative) 06/14/24 12:45 Urine Nitrite Negative (Negative) 06/14/24 12:45 Ur Leukocyte Esterase Negative (Negative) 06/14/24 12:45 Urine WBC (Auto) 0-5 /hpf (0-5) 06/13/24 12:40 Urine RBC (Auto) 0-2 /hpf (0-2) 06/13/24 12:40 U Hyaline Cast (Auto) >20 /lpf (0-2) H 06/13/24 12:40 U Epithel Cells (Auto) 3-5 /hpf (0-2) H 06/13/24 12:40 Urine Bacteria (Auto) None Seen (None Seen) 06/13/24 12:40 06/15/24 10:32 Aerobic Blood Culture - Preliminary Blood No growth in Aerobic bottle after 48 hours. Anaerobic Blood Culture - Preliminary No growth in Anaerobic bottle after 48 hours. 06/14/24 12:45 Urine Culture - Final Urine,Random No growth - less than 1,000 colonies/mL. 06/13/24 10:29 Aerobic Blood Culture - Final Blood Escherichia coli Anaerobic Blood Culture - Final Escherichia coli
[2024-06-18] MEDS ORDERED: ATROPINE SULFATE 0.1 MG/ML 10ML SYR IV PRN (11:47)
[2024-06-18] MEDS ORDERED: ePHEDrine sulfate 50 MG/ML AMP IV PRN (11:47)
[2024-06-18] MEDS ORDERED: ONDANSETRON INJ 2 MG/ML 2 ML VIAL IV PRN (11:47)
[2024-06-18] MEDS ORDERED: PROMETHAZINE HCL 6.25 MG in SODIUM CHLORIDE 0.9% 50 ML IV PRN (11:47)
[2024-06-18] MEDS ORDERED: HYDROmorphone INJ 2 MG/ML SYR/VIAL IV PRN (11:47)
--- NOTE | 2024-06-18 12:02 | History & Physical Bridge Note ---
Date of Service June 18, 2024 History & Physical Bridge Note I have examined the patient, reviewed the History & Physical and in the interval since the performance of pain the History & Physical I have noted the following changes of clinical significance: no changes noted revision fusion L5-S1 evacuation of seroma
[2024-06-18] MEDS ORDERED: ePHEDrine sulfate 50 MG/5 ML SYR ONE (13:04)
[2024-06-18] MEDS ORDERED: PHENYLEPHRINE 100MCG/ML 10ML SYR IV ONE (13:04)
--- NOTE | 2024-06-18 13:43 | Infectious Disease Progress Nt ---
Date of Service June 18, 2024 Assessment & Plan (1) E coli bacteremia: (2) Fever: (3) Hypotension: (4) S/P lumbar fusion: Plan ID Problem List: # E. coli bacteremia # Fluid collection on MRI L-spine, suspected lumbar spinal infection involving hardware # Severe sepsis # Recent lumbar fusion (L4-S1 fusion, L3 kyphoplasty, revision posterior spinal fusion L1-L4 on 06/05/24) # Antibiotic allergy to: penicillins (swelling, hives, rash) tolerates ceftriaxone and cefazolin Impression: Tommy Gilbert is a 74yo M with h/o giant cell arteritis (on tocilizumab), amaurosis fugax, hypothyroidism, HTN, HLD, lumbar radiculopathy s/p L4-S1 f usion, L3 kyphoplasty, revision posterior spinal fusion L1-L4 on 06/05/24 who presented on 06/13/24 with acute onset of lower back pain since 06/11. Found to have E. coli bacteremia and lumbar spinal fluid collection. ID is consulted for E.coli bacteremia and suspected lumbar spinal infection involving hardware. Here, he was febrile to 38.8, hypotensive to 80s with improvement. Satting well on RA. Initial labs with WBC 17.78 > 25. Cr 1.18. AST/ALT wnl. CRP < 0.5 however now 9.42. UA with 0-5 WBC. RPP negative. BCX with E coli. XR spine negative for acute abnormality. MRI L spine with postoperative fluid collection extending to the superficial tissues measuring 8.4 cm in length, likely seroma. CXR negative. He has been getting CTX. Drainage catheter was removed. ID consulted 06/14. Primary complaint is back pain without other localizing symptoms/signs. Has 2 pins/screw in left wrist, unremarkable. CT L spine done 06/14 which showed late subacute 3 column fracture of L2 with vertobroplasty and fusion, hardware intact, postsurgical fluid collection seen posterior to thecal sac at operative levels likely representing seroma; lucency around interpedicular screws in S1 suggests loosening; left sided nephrolithiasis. Patient febrile again on the evening of 06/14. CXR 06/15 with pulmonary edema. Discussion Pt initially with fevers, leukocytosis, and hypotension, c/f sepsis and found to have E. coli bacteremia (rodriguez-S) on 06/13. Thus far, the main possible localizing source apepars to be a large fluid collection in the lumbar spine associated with the pts recent surgery. While the 06/13 MRI L-spine without contrast and 06/14 CT L-spine without contrast noted a large 8.4 cm fluid collection as a possible seroma, the 06/16 CT A/P noted that the subcutaneous lumbar fluid collection was peripherally enhancing and containing gas and fluid. 06/16 CT A/P with contrast without intraabdominal pathology, diverticulosis without diverticulitis, but with large enhancing gas and fluid collection in subcutaneous lower back T11-L1 extending to laminectomy site. Spine surgery planning revision fusion L5-S1 would obtain Cx when going to OR. Would obtain OR Cx, and may consider sending broad-range PCR on body fluid (would be a send- out) given that pt has been on recent abx. He has improved significantly on ceftriaxone with resolution of fevers and WBC count; can transition to cefazolin for continued targeted coverage of the E. coli, which is rodriguez-S. Thus far his 06/15 BCx remain NGTD. Pt has hardware in L wrist from 2000; no hardware elsewhere other than L wrist or spine. No joint pain or back pain to suggest metastatic infection at this this time. If he does indeed have a spinal infection involving hardware, then anticipate a minimum 6-8 week course of IV abx, and would consider suppressive PO abx after completion of IV abx for at least 3-6 months. Also note pts immunocompromised status which may factor into further extending abx treatment. If indeed treating with several weeks of IV abx, would consider repeat MRI spine with contrast prior to EOT. Recommendations: - Change to cefazolin 2g IV q8h. If he does indeed have a spinal infection involving hardware, then anticipate a minimum 6-8 week course of IV abx, and would consider suppressive PO abx after completion of IV abx for at least 3-6 months. - F/u BCx from 06/15 until finalized to ensure clearance - Appreciate spine surgery following. If going to OR, please send for cultures (bacterial and fungal). May consider sending broad-range PCR on body fluid (would be a send-out) given that pt has been on recent abx. - Weekly lab monitoring while on IV antibiotics: CBC w/ diff, CMP, ESR, CRP. ID will continue to follow. Giselle Francis MD, [facility] Infectious Diseases [facility] direct line: [phone] Admission and Anticipated Discharge Date Admission Date: June 13, 2024 Subjective Subsequent visit was provided via telemedicine using two-way real-time interactive telecommunication between the patient and the telemedicine provider. For the duration of the visit, the provider was performing the assessment from a different facility than the patient. This includesuse of bluetooth stethoscope forauscultationperformed by the telepresenter that the telemedicine provider can hear if described in the physical exam. Surgical Territory Manager contact information: Please call [facility] Call Center . (Phone Number For Physician Use Only) After establishing a telemedicine visit, patient was: Patient was verified with two unique identifiers, Patient/authorized rep acknowledged consent and understanding and Gave permission to continue telehealth session Time Spent with Patient: Subsequent => 55 min - Continuing to report back pain, 04/28, says it is the same as prior - Ortho with plan to take patient back to OR for revision fusion L5-S1 however this has been delayed by pts potassium levels tentative plan for OR today - Afebrile, WBC 7.3 Physical Exam Physical Exam: Exam obtained with aid of in-person telepresenter. General: Well-appearing, no acute distress HEENT: Conjunctivae non-injected, sclerae anicteric, MMM, OP clear. Resp: Respirations nonlabored. Back: Bulging area of superior lumbar incision; inferior lumbar incision with dehiscence and serosanginuous drainage. Ext: No joint warmth or effusions noted. Skin: No rashes or lesions. Neuro: Alert & interactive. Grossly non-focal. Psych: Pleasant, appropriate. Results & Data Vital Signs (Past 12 Hours) Vital Signs Temp Pulse Pulse Resp BP BP Pulse Ox 06/18/24 11:11 36.8 C 71 20 166/90 H 98 06/18/24 07:57 36.6 C 58 L 18 134/85 98 06/18/24 07:37 65 06/18/24 02:58 36.5 C 60 18 127/77 98 O2 Del Method 06/18/24 11:11 Room Air 06/18/24 07:57 Room Air 06/18/24 07:37 06/18/24 02:58 Room Air Diagnostic Findings Diagnostics: 9/28 CT A/P with contrast 1. No acute intraperitoneal abnormality is identified in the abdomen or pelvis. 2. Chronic posttraumatic and postsurgical changes of the lumbar spine as above noting multilevel spinal fusion, vertebroplasty, and a right transverse process fracture of L3. 3. There is a large peripherally enhancing gas and fluid containing collection in the subcutaneous soft tissues of the lower back at the level of T11-L1 which extends to the laminectomy site. This reaches the dermal surface and may represent a postsurgical seroma/hematoma. The sterility of this fluid collection cannot be assessed by imaging and abscess is not excluded. Clinical correlation will be essential. 4. Cardiomegaly and trace pleural effusions. 5. Intralobular septal thickening at the lung bases suggests fluid overload/congestive change. Correlate clinically. 6. Colonic diverticulosis without CT evidence of acute diverticulitis. 7. Additional findings as above. 06/14 CT L-spine wtihout contrast 1. Again seen is a late subacute 3 column fracture of L2 which extends through the posterior elements. There has been interval vertebroplasty at this level and spinal fusion. 2. The orthopedic hardware appears intact. 3. There is a right transverse process fracture of L3, likely on a postsurgical basis. 4. A postsurgical fluid collection is again seen posterior to the thecal sac at the operative levels, likely representing a seroma. This was better assessed on yesterday's MRI. 5. Lucency around the interpedicular screws in S1 suggests loosening. 6. Left-sided nephrolithiasis. 7. Additional findings as above. 06/13 MRI L-spine without contrast 1. Limited exam as above. 2. Posterior interbody deonna and screw fusion hardware involves the T12-S1 levels. 3. There is a postoperative fluid collection extending to the superficial subcutaneous tissues measuring up to 8.4 cm in length, likely a seroma. 4. Previously described subacute L2 and L1-L2 fractures are better seen and described on the comparison exam. Micro Data: 06/18 lower back OR Cx: PEND 06/15 BCx x1: NGTD 06/14 UCx: <1k growth 06/13 BCx x1: E. coli in 2 of 2 bottles (rodriguez-S including S- amp/Augmentin/cefazolin/ceftriaxone/cipro/levo/Bactrim) Antibiotic Summary: cefazolin (06/18 present) prior ceftriaxone (06/13 06/17) other notable meds tocilizumab last received 05/30, has been held since then
[2024-06-18] MEDS: BUPIVACAINE/EPINEPHRINE 0.25% 1:200,000 30 ML VIAL ONE (14:00)
[2024-06-18] MEDS: GENTAMICIN SULFATE 40 MG/ML 2 ML VIAL ONE (14:04)
[2024-06-18] MEDS: ceFAZolin 330 MG/ML 1 GM VIAL ONE (14:04)
[2024-06-18] MEDS: VANCOMYCIN HCL 1000MG/20ML VIAL ONE (14:05)
--- NOTE | 2024-06-18 14:24 | Operative Report ---
Post Operative Report Pre & Post Diagnosis Operation Date: 06/18/24 07:00 Pre-Op Diagnosis: Loosening of S1 pedicle screws. Nonunion L5-S1. Fracture of S1 vertebral body. Postop seroma Post-Op Diagnosis: Same I identified the patient and participated in the time-out.: Yes Procedure Operation Date: 06/18/24 07:00 Actual Procedures #1 removal of posterior instrumentation rods and S1 pedicle screws. #2 exploration of fusion L5-S1. #3 revision interbody fusion L5-S1. #4 placement of Spira 15 x 26 mm interbody cage at L5-S1. #5 kyphoplasty of S1 vertebral body. #6 instrumentation T12-S1. #7 placement of infuse collagen sponge combined with Koros bone graft in the posterior lateral gutters and os design bone graft in the interbody space. #8 revision decompression L5-S1 Surgeon Renard Moya DO Gum Remover Karla Crespo Estimated Blood Loss 100 Findings Consistent with Post-Op Diagnosis Postop seroma consistent with breakdown blood products not grossly infected. Specimens Cultures of the postop seroma of the lumbar spine Indications This is a 74-year-old male that presents to the hospital with worsening lumbosacral back pain. He was bacteremic at the time of admission. There is concern about infected seroma as well as loosening instrumentation at the L5-S1 level. Subsequent is here for surgical invention. Description of Procedure Patient was met with identified informed consent obtained. Patient was then taken to the operative suite underwent intubation placed in a prone position on the Oliverio table on top of the Naman frame. All bony promises well-padded eyes inspected to ensure no external pressure placed upon the. This point the lumbar spine was prepped and draped in a sterile fashion. Utilizing the previous incision site sharp dissection formed down to and exposing the instrumentation from T12-S1. The end caps and rods were removed. I then tested the S1 screws noting it to be grossly loose. They were both removed. I then performed a kyphoplasty of the S1 vertebral body was there is evidence of fracture at this level. Inserted approximately 3 cc in each pedicle of S1 interdigitating into the vertebral body. This was followed by placement of a 9 x 45 mm pedicle screw and S1 bilaterally. After this complete revision decompression L5-S1 was performed including medial facetectomy foraminotomies on the right. By way of transforaminal approach on the right a discectomy of L5-S1 was performed endplates guided to subcortical bleeding bone and a 15 x 26 mm Spira cage filled os design bone graft tapped in position. The appropriate size rods were then placed and locked into position bilaterally. Approximately 10 cc of Stimulan beads impregnated with vancomycin gentamicin placed throughout the wound. 215 round YESSICA drains inserted. The incision was then closed with 1 Vicryl the fascia 2-0 Vicryl subcutaneously and 4 Monocryl for final skin closure. Steri-Strips sterile dressing placed. Patient waken taken PACU stable condition. Please note Karla Crespo was present at the entire procedure and all the patient positioning complex portion of the surgery and final skin closure. I attest to the content of the Intraoperative Record and any orders documented therein. Any exceptions are noted below.
--- NOTE | 2024-06-18 14:51 | Fluoroscopy Report ---
FL lumbar spine 2-3V CLINICAL HISTORY: L5-S1 FUSION REVISION COMPARISON STUDY: Lumbar spine MRI June 13, 2024. Corresponding CT June 14, 2024. FLUOROSCOPY TIME: 18 seconds. stew lau: 14.12 mGy FLUOROSCOPIC IMAGES: 5 FINDINGS: Fluoroscopy was provided during revision L5-S1 fusion. Interbody spacer is in place. The robles rdware is intact. S1 kyphoplasty is noted. A T12-S1 fusion is noted with previous L2 kyphoplasty. IMPRESSION: Fluoroscopy provided during revision L5-S1 fusion. ACT 112: Negative or not required by law. Electronically signed by: Steve Bowden M.D. 06/18/2024 2:50 PM
[2024-06-18] MEDS: fentaNYL citrate PF 100 MCG/2 ML VIAL IV PRN (14:55)
--- NOTE | 2024-06-18 15:32 | Anesthesiology Progress Note ---
Date of Service June 18, 2024 Anesthesia Post Procedure Vital Signs Vital Signs: Temp Pulse Pulse Pulse Resp BP BP 06/18/24 15:05 86 13 129/71 06/18/24 14:55 91 H 20 125/83 06/18/24 14:45 86 18 114/79 06/18/24 14:37 36 C L 94 H 13 135/79 06/18/24 11:11 36.8 C 71 20 166/90 H 06/18/24 07:57 36.6 C 58 L 18 134/85 06/18/24 07:37 65 06/18/24 02:58 36.5 C 60 18 127/77 06/17/24 23:34 76 06/17/24 22:46 36.7 C 64 18 148/83 H 06/17/24 20:08 37.0 C 66 18 147/84 H Pulse Ox O2 Del Method O2 Flow Rate 06/18/24 15:05 97 Oxymask 2 06/18/24 14:55 95 Oxymask 4 06/18/24 14:45 94 Oxymask 4 06/18/24 14:37 100 Oxymask 8 06/18/24 11:11 98 Room Air 06/18/24 07:57 98 Room Air 06/18/24 07:37 06/18/24 02:58 98 Room Air 06/17/24 23:34 06/17/24 22:46 98 Room Air 06/17/24 20:08 98 Room Air Pain Intensity Back: Pain Intensity: 2 Bilateral Lower Back: Pain Intensity: 5 Transfer of Care Handoff Completed per policy Notes Mental Status: alert / awake / arousable and participated in evaluation Patient Amnestic to Procedure: Yes Nausea / Vomiting: adequately controlled Pain: adequately controlled Airway Patency, RR, SpO2: stable & adequate BP & HR: stable & adequate Hydration State: stable & adequate Anesthetic Complications: no major complications apparent
[2024-06-18] MEDS: SODIUM ZIRCONIUM CYCLOSILICATE 10 GM PACKET PO SCH (16:41)
[2024-06-18 18:00] LABS: BUN Creatinine Ratio 16.5 (10-20); Calcium 8.5 mg/dl (8.6-10.3); Creatinine Clr Calc Pharmacy 75.2 ml/min; Est GFR (African American) 88.8 ml/min; Est GFR (Non-African American) 76.6 ml/min; Potassium 4.7 mmol/L (3.5-5.1)
--- NOTE | 2024-06-18 18:08 | Hospitalist Progress Note ---
Date of Service June 18, 2024 Assessment & Plan (1) E. coli septicemia: Plan: With septic shock with fever of 38.8 C, leukocytosis, tachycardia, hypotension, w/ E. coli bacteremia. CRP elevated at 11, Procal elevated at 6 Unclear source but given new onset severe lower back pain, suspect infected seroma/wound from recent back surgery UA negative on admission and repeat UA and urine cx negative--> he did have a Davies last admission and is at risk for prostatitis/UTI but that doesn't seem to be present BioFire negative, CXR negative for PNA CT abd/pel to assess for intra-abd source of infection--> showed fluid collection in back but nothing else acute Now afebrile, leukocytosis resolved, CRP trending downward, repeat BCxs from 06/15 remain NGTD Now s/p redo of lumbar fusion, kyphoplasty S1, and seroma evacuation w/ Dr. Moya on 06/18 Consult ID appreciated-Change ceftriaxone to narrow coverage to Cefazolin-if does indeed have a spinal infection involving hardware, then anticipate a minimum 6-8 week course of IV abx, and would consider suppressive PO abx after completion of IV abx for at least 3-6 months As per my d/w ID, will check ECHO although not likely to have IE with Gram neg bacteremia Follow repeat blood cultures Tylenol prn rigors/fever ID recommends cultures to be collected from OR (bacterial and fungal). May consider sending broad-range PCR on body fluid (would be a send-out) given that pt has been on recent abx. Weekly lab monitoring while on IV antibiotics: CBC w/ diff, CMP, ESR, CRP. Will need PICC eventually (2) S/P lumbar fusion: Plan: S/p Lumbar fusion with Dr. Moya on 06/05 and now repeat surgery 06/18 Post-op care as per Ortho Spine with pain control, bowel regimen Follow CBC, BMP (3) Hyperkalemia: Plan: K+ 5.8 on 06/17, no clear cause found-improved with IV lasix K+ now elevated again at 5.5 --> again improved with IV lasix on repeat BMP No offending medications. Is volume overloaded, no hyperglycemia, has normal renal function Continue low K+ diet Follow BMP in AM Start Lokelma daily (4) Thrombocytopenia: Plan: Platelets down to uzma of 68, now continue to be trending back upwards to 119. Not receiving any heparin products. Suspect secondary to sepsis which is now resolved Continue to follow CBC (5) Anemia: Plan: hgb down to 9.8 from 12 on admission but likely hemodilutional from copious IVFs . Hgb now improved to 11.1 with stopping IVFs and diuresis Expect drop post op from blood loss Follow CBC no bleeding noted from anywhere except serosanguineous fluid from back in YESSICA drains (6) Hypertension: Plan: with septic shock now resolved, continue holding home irbesartan and HCTZ CXR with some pulm edema, w/ normal POx and no resp distress, but with hyperkalemia, giving lasix dose lasix daily as needed Plan Chronic medical issues: Hyperlipidemia-continue home statin SVT-a history of such, none here thus far Continue to follow on tele for 1 day post-op and then can likely downgrade to med/surg on POD#2 Hypothyroidism-continue home levothyroxine, TSH recently is normal Restrictive lung disease-secondary to kyphosis as per PULM Giant cell arteritis- last dose of tocilizumab was on 05/30-on hold for recent back surgery and now for infection,follows with Rheum Dr. Florence. Does have granulomas in spleen and lungs seen on CT abd/pel. Says his Acidizer Helper is aware and he was also seen by PULM-no diagnosis of sarcoidosis or TB that he knows of DVT proph-SCDs Dispo-continued stay on PCU Admission and Anticipated Discharge Date Admission Date: June 13, 2024 Subjective Pt seen after return from back surgery. He reports some aching in lower back but hard to tell yet if improved from previous. Having a lot of left eye irritation since return from surgery Tele with NSR, rates 50-60s Physical Exam Constitutional: WD/WN, vitals as above Eyes: PERRL and EOM intact bilaterally; no eyelid abnormality, no conjunctival abnormality, no scleral abnormality and no corneal abnormality Respiratory: normal respiratory effort, lungs clear to auscultation Cardiovascular: RRR, no murmur, no edema Gastrointestinal (Abdomen): normal bowel sounds, soft, nontender, no hepatosplenomegaly Musculoskeletal: 2 YESSICA drains with serosanguineous fluid f rom back Psychiatric: A+Ox3, euthymic affect Genitourinary: Davies in place draining clear, yellow urine Results & Data Results & Data Vital Signs (Past 12 Hours) Vital Signs Temp Pulse Pulse Pulse Resp BP BP 06/18/24 17:23 100 H 06/18/24 15:35 84 13 126/74 06/18/24 15:25 37 C 80 12 121/79 06/18/24 15:15 88 12 131/78 06/18/24 15:05 86 13 129/71 06/18/24 14:55 91 H 20 125/83 06/18/24 14:45 86 18 114/79 06/18/24 14:37 36 C L 94 H 13 135/79 06/18/24 11:11 36.8 C 71 20 166/90 H 06/18/24 07:57 36.6 C 58 L 18 134/85 06/18/24 07:37 65 Pulse Ox O2 Del Method O2 Flow Rate 06/18/24 17:23 06/18/24 15:35 95 Nasal Cannula 2 06/18/24 15:25 96 Nasal Cannula 2 06/18/24 15:15 97 Nasal Cannula 2 06/18/24 15:05 97 Nasal Cannula 2 06/18/24 14:55 95 Oxymask 4 06/18/24 14:45 94 Oxymask 4 06/18/24 14:37 100 Oxymask 8 06/18/24 11:11 98 Room Air 06/18/24 07:57 98 Room Air 06/18/24 07:37 Laboratory Results CBC, BMP x 2, blood cultures reviewed PG Care Time/CCT Total # of Minutes Spent Total Time Spent with Patient: Total time spent is greater than 50% in coordination of care (as documented) at patient's floor/unit and/or counseling patient: Coding Level of Care Code 14541 SUB INP/OBS CARE 3/50MIN Diagnoses E. coli septicemia A41.51 S/P lumbar fusion Z98.1 Hyperkalemia E87.5 Thrombocytopenia D69.6 Anemia D64.9 Essential hypertension I10 Hypertension type: essential hypertension (6) Hypertension Hypertension type: essential hypertension Qualified Code(s): I10 - Essential (primary) hypertension
[2024-06-18] MEDS: TRIMETHOPRIM/POLYMYXIN B OPL SCH (19:39)
--- NOTE | 2024-06-19 08:02 | Hospitalist Progress Note ---
Date of Service June 19, 2024 Assessment & Plan (1) E. coli septicemia: Plan: With septic shock with fever of 38.8 C, leukocytosis, tachycardia, hypotension, w/ E. coli bacteremia. CRP elevated at 11, Procal elevated at 6 new onset severe lower back pain, suspect infected seroma/wound from recent back surgery. UA negative on admission and repeat UA and urine cx negative--> he did have a Davies last admission and is at risk for prostatitis/UTI but that doesn't seem to be present BioFire negative, CXR negative for PNA CT abd/pel to assess for intra-abd source of infection--> showed fluid collection in back but nothing else acute s/p redo of lumbar fusion, kyphoplasty S1, and seroma evacuation w/ Dr. Moya on 06/18 Consult ID appreciated-Change ceftriaxone to narrow coverage to Cefazolin-n anticipate a minimum 6-8 week course of IV abx, and would consider suppressive PO abx after completion of IV abx for at least 3-6 months Echocardiogram does not have confirmed endocarditis but does have thickened mitral valves cannot completely rule out endocarditis with this echo however discussion with infectious disease feels prolonged course of antibiotic treatment would likely treat both. Intraoperative wound culture show gram- negative bacilli pending sensitivities repeat BCxs from 06/15 remain NGTD Will need PICC eventually consent obtained 06/19/2024 (2) S/P lumbar fusion: Plan: S/p Lumbar fusion with Dr. Moya on 06/05 and now repeat surgery 06/18 Post-op care as per Ortho Spine with pain control, bowel regimen dilutional anemia, now near his baseline (3) Hyperkalemia: Plan: K+ 5.8 on 06/17, no clear cause found-improved with IV lasix Potassium is improved stopping Lokelma (4) Thrombocytopenia: Plan: Platelets down to uzma of 68, now continue to be trending back upwards to 119. Not receiving any heparin products. Suspect secondary to sepsis which is now resolved Continue to follow CBC (5) Hypertension: Plan: with septic shock now resolved, continue holding home irbesartan and HCTZ CXR with some pulm edema, w/ normal POx and no resp distress, but with hyperkalemia, giving lasix dose lasix daily as needed patient is euvolemic on 06/19 Plan Chronic medical issues: Hyperlipidemia-continue home statin SVT-a history of such, none here thus far Continue to follow on tele for 1 day post-op and then can likely downgrade to med/surg on POD#2 Hypothyroidism-continue home levothyroxine, TSH recently is normal Restrictive lung disease-secondary to kyphosis as per PULM Giant cell arteritis- last dose of tocilizumab was on 05/30-on hold for recent back surgery and now for infection,follows with Rheum Dr. Florence. Does have granulomas in spleen and lungs seen on CT abd/pel. Says his Air Grinder is aware and he was also seen by PULM-no diagnosis of sarcoidosis or TB that he knows of DVT proph-SCDs Dispo-continued stay on PCU Admission and Anticipated Discharge Date Admission Date: June 13, 2024 Subjective Patient is doing well he has not been out of bed his back pain is improved he has no radicular symptoms Discussion with ID prolonged treatment for E. coli bacteremia with surgical site infection Physical Exam Physical Exam: Patient awake alert appropriate no cardiac murmurs heard no peripheral stigmata of endocarditis Distal extremities sensation is intact Results & Data Results & Data Vital Signs (Past 12 Hours) Vital Signs Temp Pulse Pulse Resp BP Pulse Ox O2 Del Method 06/19/24 03:40 98.2 F 80 18 103/66 94 Nasal Cannula 06/18/24 22:41 97.9 F 85 18 119/73 96 Nasal Cannula 06/18/24 21:55 92 H O2 Flow Rate 06/19/24 03:40 2 06/18/24 22:41 06/18/24 21:55 Laboratory Results Reviewed CBC reviewed chemistry Callback from infectious disease regarding duration of treatment and need versus no need to pursue KONG PG Care Time/CCT Total # of Minutes Spent Total Time Spent with Patient: Total time spent is greater than 50% in coordination of care (as documented) at patient's floor/unit and/or counseling patient: Coding Level of Care Code 49699 SUB INP/OBS CARE 3/50MIN Diagnoses E. coli septicemia A41.51 S/P lumbar fusion Z98.1 Hyperkalemia E87.5 Thrombocytopenia D69.6 Essential hypertension I10 Hypertension type: essential hypertension (5) Hypertension Hypertension type: essential hypertension Qualified Code(s): I10 - Essential (primary) hypertension
[2024-06-19 08:38] LABS: Hematocrit (blood only) 32.4 % (42.0-52.0); Hemoglobin 10.5 g/dl (14.0-18.0); Mean Corpuscular Hemoglobin 28.6 pg (25.0-34.0); Mean Corpuscular Hgb Conc 32.4 g/dL (32.0-36.0); Mean Corpuscular Volume 88.3 fL (80.0-100.0); Mean Platelet Volume 11.4 fL (9.4-12.4); Platelet Count 174 K/uL (130-400); RDW Coefficient of Variation 14.5 % (11.5-14.5); RDW Standard Deviation 46.5 fL (36.4-46.3); Red Blood Count 3.67 M/uL (4.70-6.10); White Blood Count 12.63 K/ul (4.8-10.8)
[2024-06-19 08:56] LABS: BUN Creatinine Ratio 22.8 (10-20); C Reactive Protein 2.37 mg/dl (0-0.5); Calcium 8.8 mg/dl (8.6-10.3); Creatinine Clr Calc Pharmacy 79.3 ml/min; Est GFR (African American) 94.6 ml/min; Est GFR (Non-African American) 81.6 ml/min; Potassium 4.6 mmol/L (3.5-5.1)
[2024-06-19 09:10] LABS: Basophils # (auto) 0.04 K/uL (0.00-0.20); Basophils % (auto) 0.3 %; Eosinophils # (auto) 0.07 K/uL (0.00-0.50); Eosinophils % (auto) 0.6 %; Immature Granulocytes # (auto) 0.28 K/uL (0.01-0.20); Immature Granulocytes % (auto) 2.2 %; Lymphocytes # (auto) 1.85 K/uL (1.20-3.40); Lymphocytes % (auto) 14.6 %; Monocytes # (auto) 0.73 K/uL (0.11-0.59); Monocytes % (auto) 5.8 %; Neutrophils # (auto) 9.66 K/uL (1.40-6.50); Neutrophils % (auto) 76.5 %
--- NOTE | 2024-06-19 10:19 | Orthopedic Progress Note ---
Date of Service June 19, 2024 Assessment & Plan (1) S/P lumbar fusion: Plan: Assessment nonunion L5-S1. Plan at this time he may initiate physical therapy. We do not need to wait for his brace before beginning therapy. Will discontinue his Davies today. Continue antibiotics. Admission and Anticipated Discharge Date Admission Date: June 13, 2024 Subjective Patient's back pain is improved. He has no lumbosacral pain with standing. Physical Exam Physical Exam: On exam the patient peers comfortable. I had him stand up at the side of the bed. He did so without difficulty. Excellent posture. Good strength testing. Results & Data Vital Signs (Past 12 Hours) Vital Signs Temp Pulse Pulse Pulse Resp BP Pulse Ox 06/19/24 08:02 36.9 C 67 18 124/75 98 06/19/24 07:30 63 06/19/24 03:40 36.8 C 80 18 103/66 94 06/18/24 22:41 36.6 C 85 18 119/73 96 O2 Del Method O2 Flow Rate 06/19/24 08:02 Room Air 06/19/24 07:30 06/19/24 03:40 Nasal Cannula 2 06/18/24 22:41 Nasal Cannula
--- NOTE | 2024-06-19 10:43 | XCELERA ---
[id number]
[2024-06-19] MEDS: SODIUM ZIRCONIUM CYCLOSILICATE 10 GM PACKET PO SCH (11:07)
--- NOTE | 2024-06-19 14:15 | Infectious Disease Progress Nt ---
Date of Service June 19, 2024 Assessment & Plan (1) E coli bacteremia: (2) Fever: (3) Hypotension: (4) S/P lumbar fusion: Plan ID Problem List: # E. coli bacteremia # Fluid collection on MRI L-spine, lumbar spinal infection involving hardware. Now s/p redo of lumbar fusion, kyphoplasty S1, and seroma evacuation w/ Dr. Moya on 06/18, YESSICA drains in place; 06/18 OR Cx + GNRs. # Severe sepsis # Recent lumbar fusion (L4-S1 fusion, L3 kyphoplasty, revision posterior spinal fusion L1-L4 on 06/05/24) # Antibiotic allergy to: penicillins (swelling, hives, rash) tolerates ceftriaxone and cefazolin Impression: Tommy Gilbert is a 74yo M with h/o giant cell arteritis (on tocilizumab), amaurosis fugax, hypothyroidism, HTN, HLD, lumbar radiculopathy s/p L4-S1 fusion, L3 kyphoplasty, revision posterior spinal fusion L1-L4 on 06/05/24 who presented on 06/13/24 with acute onset of lower back pain since 06/11. Found to have E. coli bacteremia and lumbar spinal fluid collection. ID is consulted for E.coli bacteremia and suspected lumbar spinal infection involving hardware. Now s/p redo of lumbar fusion, kyphoplasty S1, and seroma evacuation w/ Dr. Moya on 06/18, YESSICA drains in place; 06/18 OR Cx + GNRs. Here, he was febrile to 38.8, hypotensive to 80s with improvement. Satting well on RA. Initial labs with WBC 17.78 > 25. Cr 1.18. AST/ALT wnl. CRP < 0.5 however now 9.42. UA with 0-5 WBC. RPP negative. BCX with E coli. XR spine negative for acute abnormality. MRI L spine with postoperative fluid collection extending to the superficial tissues measuring 8.4 cm in length, likely seroma. CXR negative. He has been getting CTX. Drainage catheter was removed. ID consulted 06/14. Primary complaint is back pain without other localizing symptoms/signs. Has 2 pins/screw in left wrist, unremarkable. CT L spine done 06/14 which showed late subacute 3 column fracture of L2 with vertobroplasty and fusion, hardware intact, postsurgical fluid collection seen posterior to thecal sac at operative levels likely representing seroma; lucency around interpedicular screws in S1 suggests loosening; left sided nephrolithiasis. Patient febrile again on the evening of 06/14. CXR 06/15 with pulmonary edema. While the 06/13 MRI L-spine without contrast and 06/14 CT L-spine without contrast noted a large 8.4 cm fluid collection as a possible seroma, the 06/16 CT A/P noted that the subcutaneous lumbar fluid collection was peripherally enhancing and containing gas and fluid. 06/16 CT A/P with contrast without intraabdominal pathology, diverticulosis without diverticulitis, but with large enhancing gas and fluid collection in subcutaneous lower back T11-L1 extending to laminectomy site. Discussion Pt initially with fevers, leukocytosis, and hypotension, c/f sepsis and found to have E. coli bacteremia (rodriguez-S) on 06/13. Found to have a large fluid collection in the lumbar spine. Now s/p redo of lumbar fusion, kyphoplasty S1, and seroma evacuation w/ Dr. Moya on 06/18, YESSICA drains in place; 06/18 OR Cx + GNRs will follow Cx but suspect this will be the same E. coli. The positive Cx confirms spinal infection associated with hardware. 06/19 TTE with no vegetations reported but cannot exclude vegetation on mitral valve; mitral valve leaflets thickened but open well. Overall, with lower suspicion for IE at this time as pt with apparent surgical site infection, and nevertheless will receive an extended course of abx. Pt has hardware in L wrist from 2000; no hardware elsewhere other than L wrist or spine. No joint pain or back pain to suggest metastatic infection at this this time. Thus far his repeat 06/15 BCx remain NGTD. He improved significantly on ceftriaxone with resolution of fevers and WBC count; can continue cefazolin for continued targeted coverage of the E. coli, which is rodriguez-S. Will follow OR Cx, but tentative plan is to continue cefazolin to complete a minimum 8-week course of IV abx. Would consider suppressive PO abx after completion of IV abx for at least 3-6 months. Also note pts immunocompro mised status which may factor into further extending abx treatment. Would consider repeat MRI L-spine with contrast prior to EOT. Recommendations: - Continue cefazolin 2g IV q8h to complete a minimum 8 week course (06/1808/12/24). Upon discharge, can change to cefazolin 6g IV daily continuous infusion for OPAT. Will follow OR Cx to confirm abx regimen. - Consider repeat MRI L-spine with contrast prior to EOT of IV abx (e.g., obtain MRI week of 08/06/24) - After completion of IV antibiotics, would consider suppressive PO abx for at least 3-6 months - F/u BCx from 06/15 until finalized to ensure clearance - F/u 06/18 OR Cx until finalized - Weekly lab monitoring while on IV antibiotics: CBC w/ diff, CMP, ESR, CRP ID will continue to follow. Giselle Francis MD, [facility] Infectious Diseases [facility] ID Connect direct line: [phone] Admission and Anticipated Discharge Date Admission Date: June 13, 2024 Subjective This patient recommendation is based on a telemedicine consult request which was completed asynchronously through chart review and information provided by the primary physician. The patient was not seen or examined today. The evaluation is consultative in nature and all patient care and treatment decisions can either be accepted or rejected by the patient's primary hospital-based treating physician using their own independent medical judgment for their patient. Time Spent Reviewing Chart: 31+ minutes PLEASE NOTE: E-consult was performed for this visit given limited telepresenter availability today. - s/p redo of lumbar fusion, kyphoplasty S1, and seroma evacuation w/ Dr. Moya on 06/18, YESSICA drains in place. OR Cx thus far + GNRs - Afebrile, WBC 12.63 Results & Data Vital Signs (Past 12 Hours) Vital Signs Temp Pulse Pulse Pulse Resp BP Pulse Ox 06/19/24 14:05 72 06/19/24 11:36 36.6 C 74 16 133/81 97 06/19/24 08:02 36.9 C 67 18 124/75 98 06/19/24 07:30 63 06/19/24 03:40 36.8 C 80 18 103/66 94 O2 Del Method O2 Flow Rate 06/19/24 14:05 06/19/24 11:36 Room Air 06/19/24 08:02 Room Air 06/19/24 07:30 06/19/24 03:40 Nasal Cannula 2 Diagnostic Findings Diagnostics: 06/19 TTE No vegetations reported but cannot exclude vegetation on mitral valve; mitral valve leaflets thickened but open well 06/18 Op report Procedures #1 removal of posterior instrumentation rods and S1 pedicle screws. #2 exploration of fusion L5-S1. #3 revision interbody fusion L5-S1. #4 placement of Spira 15 x 26 mm interbody cage at L5-S1. #5 kyphoplasty of S1 vertebral body. #6 instrumentation T12-S1. #7 placement of infuse collagen sponge combined with Koros bone graft in the posterior lateral gutters and os design bone graft in the interbody space. #8 revision decompression L5-S1 Findings Consistent with Post-Op Diagnosis Postop seroma consistent with breakdown blood products not grossly infected. Utilizing the previous incision site sharp dissection formed down to and expo sing the instrumentation from T12-S1. The end caps and rods were removed. I then tested the S1 screws noting it to be grossly loose. They were both removed. I then performed a kyphoplasty of the S1 vertebral body was there is evidence of fracture at this level. Inserted approximately 3 cc in each pedicle of S1 interdigitating into the vertebral body. This was followed by placement of a 9 x 45 mm pedicle screw and S1 bilaterally. After this complete revision decompression L5-S1 was performed including medial facetectomy foraminotomies on the right. By way of transforaminal approach on the right a discectomy of L5-S1 was performed endplates guided to subcortical bleeding bone and a 15 x 26 mm Spira cage filled os design bone graft tapped in position. The appropriate size rods were then placed and locked into position bilaterally. Approximately 10 cc of Stimulan beads impregnated with vancomycin gentamicin placed throughout the wound. 215 round YESSICA drains inserted. The incision was then closed with 1 Vicryl the fascia 2-0 Vicryl subcutaneously and 4 Monocryl for final skin closure. Steri-Strips sterile dressing placed 06/16 CT A/P with contrast 1. No acute intraperitoneal abnormality is identified in the abdomen or pelvis. 2. Chronic posttraumatic and postsurgical changes of the lumbar spine as above noting multilevel spinal fusion, vertebroplasty, and a right transverse process fracture of L3. 3. There is a large peripherally enhancing gas and fluid containing collection in the subcutaneous soft tissues of the lower back at the level of T11-L1 which extends to the laminectomy site. This reaches the dermal surface and may represent a postsurgical seroma/hematoma. The sterility of this fluid collection cannot be assessed by imaging and abscess is not excluded. Clinical correlation will be essential. 4. Cardiomegaly and trace pleural effusions. 5. Intralobular septal thickening at the lung bases suggests fluid overload/congestive change. Correlate clinically. 6. Colonic diverticulosis without CT evidence of acute diverticulitis. 7. Additional findings as above. 06/14 CT L-spine wtihout contrast 1. Again seen is a late subacute 3 column fracture of L2 which extends through the posterior elements. There has been interval vertebroplasty at this level and spinal fusion. 2. The orthopedic hardware appears intact. 3. There is a right transverse process fracture of L3, likely on a postsurgical basis. 4. A postsurgical fluid collection is again seen posterior to the thecal sac at the operative levels, likely representing a seroma. This was better assessed on yesterday's MRI. 5. Lucency around the interpedicular screws in S1 suggests loosening. 6. Left-sided nephrolithiasis. 7. Additional findings as above. 06/13 MRI L-spine without contrast 1. Limited exam as above. 2. Posterior interbody deonna and screw fusion hardware involves the T12-S1 levels. 3. There is a postoperative fluid collection extending to the superficial subcutaneous tissues measuring up to 8.4 cm in length, likely a seroma. 4. Previously described subacute L2 and L1-L2 fractures are better seen and described on the comparison exam. Micro Data: 06/18 lower back OR Cx: GNRs; stain with no organisms, moderate WBCs 06/15 BCx x1: NGTD 06/14 UCx: <1k growth 06/13 BCx x1: E. coli in 2 of 2 bottles (rodriguez-S including S-amp/Augmentin/cefazolin/ceftriaxone/cipro/levo/Bactrim) Antibiotic Summary: cefazolin (06/18 present) prior ceftriaxone (06/13 06/17) other notable meds tocilizumab last received 05/30, has been held since then
[2024-06-20 08:07] LABS: Hematocrit (blood only) 30.5 % (42.0-52.0); Hemoglobin 9.9 g/dl (14.0-18.0); Mean Corpuscular Hemoglobin 28.8 pg (25.0-34.0); Mean Corpuscular Hgb Conc 32.5 g/dL (32.0-36.0); Mean Corpuscular Volume 88.7 fL (80.0-100.0); Platelet Count 192 K/uL (130-400); RDW Coefficient of Variation 14.6 % (11.5-14.5); RDW Standard Deviation 46.6 fL (36.4-46.3); Red Blood Count 3.44 M/uL (4.70-6.10)
[2024-06-20 08:23] LABS: BUN Creatinine Ratio 20.6 (10-20); Calcium 8.6 mg/dl (8.6-10.3); Creatinine Clr Calc Pharmacy 71.6 ml/min; Est GFR (African American) 83.5 ml/min; Est GFR (Non-African American) 72.1 ml/min; Potassium 5.5 mmol/L (3.5-5.1)
--- NOTE | 2024-06-20 10:31 | Infectious Disease Progress Nt ---
Date of Service June 20, 2024 Assessment & Plan (1) E coli bacteremia: (2) Fever: (3) Hypotension: (4) S/P lumbar fusion: Plan ID Problem List: # E. coli bacteremia # Fluid collection on MRI L-spine, lumbar spinal infection involving hardware. Now s/p redo of lumbar fusion, kyphoplasty S1, and seroma evacuation w/ Dr. Moya on 06/18, YESSICA drains in place; 06/18 OR Cx + GNRs. # Severe sepsis # Recent lumbar fusion (L4-S1 fusion, L3 kyphoplasty, revision posterior spinal fusion L1-L4 on 06/05/24) # Antibiotic allergy to: penicillins (swelling, hives, rash) tolerates ceftriaxone and cefazolin Impression: Tommy Gilbert is a 74yo M with h/o giant cell arteritis (on tocilizumab), amaurosis fugax, hypothyroidism, HTN, HLD, lumbar radiculopathy s/p L4-S1 fusion, L3 kyphoplasty, revision posterior spinal fusion L1-L4 on 06/05/24 who presented on 06/13/24 with acute onset of lower back pain since 06/11. Found to have E. coli bacteremia and lumbar spinal fluid collection. ID is consulted for E.coli bacteremia and lumbar spinal infection involving hardware. Now s/p redo of lumbar fusion, kyphoplasty S1, and seroma evacuation w/ Dr. Moya on 06/18, YESSICA drains in place; 06/18 OR Cx + E. coli. Here, he was febrile to 38.8, hypotensive to 80s with improvement. Satting well on RA. Initial labs with WBC 17.78 > 25. Cr 1.18. AST/ALT wnl. CRP < 0.5 however now 9.42. UA with 0-5 WBC. RPP negative. BCX with E coli. XR spine negative for acute abnormality. MRI L spine with postoperative fluid collection extending to the superficial tissues measuring 8.4 cm in length, likely seroma. CXR negative. He has been getting CTX. Drainage catheter was removed. ID consulted 06/14. Primary complaint is back pain without other localizing symptoms/signs. Has 2 pins/screw in left wrist, unremarkable. CT L spine done 06/14 which showed late subacute 3 column fracture of L2 with vertobroplasty and fusion, hardware intact, postsurgical fluid collection seen posterior to thecal sac at operative levels likely representing seroma; lucency around interpedicular screws in S1 suggests loosening; left sided nephrolithiasis. Patient febrile again on the evening of 06/14. CXR 06/15 with pulmonary edema. While the 06/13 MRI L-spine without contrast and 06/14 CT L-spine without contrast noted a large 8.4 cm fluid collection as a possible seroma, the 06/16 CT A/P noted that the subcutaneous lumbar fluid collection was peripherally enhancing and containing gas and fluid. 06/16 CT A/P with contrast without intraabdominal pathology, diverticulosis without diverticulitis, but with large enhancing gas and fluid collection in subcutaneous lower back T11-L1 extending to laminectomy site. Discussion Pt initially with fevers, leukocytosis, and hypotension, c/f sepsis and found to have E. coli bacteremia (rodriguez-S) on 06/13. Found to have a large fluid collection in the lumbar spine. Now s/p redo of lumbar fusion, kyphoplasty S1, and seroma evacuation w/ Dr. Moya on 06/18, YESSICA drains in place; 06/18 OR Cx also + E. coli (rodriguez-S). This confirms spinal infection associated with hardware. 06/19 TTE with no vegetations reported but cannot exclude vegetation on mitral valve; mitral valve leaflets thickened but open well. Overall, with lower suspicion for IE at this time as pt with apparent surgical site infection, and nevertheless will receive an extended course of abx. Pt has hardware in L wrist from 2000; no hardware elsewhere other than L wrist or spine. No joint pain or back pain to suggest metastatic infection at this this time. His repeat 06/15 BCx remain NGTD. He improved significantly on abx with resolution of fevers and leukocytosis; can continue cefazolin for continued targeted coverage of the E. coli, which is rodriguez- S. Would continue cefazolin to complete a minimum 8-week course of IV abx. Would consider suppressive PO abx after completion of IV abx for at least 3-6 months (e.g., cefadroxil, Bactrim many PO options given susceptibility profile note pt with possible PCN allergy though tolerates cephalosporins). Also note pts immunocompromised status which may factor into further extending abx treatment. Would consider repeat MRI L-spine with contrast prior to EOT. Recommendations: - Continue cefazolin 2g IV q8h to complete a tentative 8-week course (06/1808/12/24) for E. coli bacteremia and hardware-associated lumbar spine infection. Upon discharge, can change to cefazolin 6g IV daily continuous infusion for OPAT. Final abx duration to be reevaluated upon follow-up, ideally with ID clinic as well. - Favor repeating MRI L-spine with contrast prior to EOT of IV abx (e.g., obtain MRI week of 08/06/24) - After completion of IV antibiotics, would consider suppressive PO abx for at least 3-6 months given involvement of spinal hardware - F/u BCx from 06/15 until finalized to ensure clearance - F/u 06/18 OR Cx until finalized - Weekly lab monitoring while on IV antibiotics: CBC w/ diff, CMP, ESR, CRP. Ensure that labs are faxed to PCP and ID clinic (if applicable) - Recommend referral to local outpatient ID for follow-up if able - Ensure close follow-up with primary care and spine surgery Plan discussed with Dr. Riley. Thank you for letting ID participate in the care of this patient. ID will sign off at this time. If questions, please contact the [facility] call center at [phone]. Giselle Francis MD, [facility] Infectious Diseases [facility]/ID Connect ID Connect direct line: [phone] Admission and Anticipated Discharge Date Admission Date: June 13, 2024 Subjective This patient recommendation is based on a telemedicine consult request which was completed asynchronously through chart review and information provided by the primary physician. The patient was not seen or examined today. The evaluation is consultative in nature and all patient care and treatment decisions can either be accepted or rejected by the patient's primary hospital-based treating physician using their own independent medical judgment for their patient. Time Spent Reviewing Chart: 31+ minutes - OR Cx + E. coli (rodriguez-S) - Afebrile, WBC 10.20 Results & Data Vital Signs (Past 12 Hours) Vital Signs Temp Pulse Pulse Resp BP Pulse Ox O2 Del Method 06/20/24 07:49 36.5 C 67 16 110/70 98 Room Air 06/20/24 03:27 36.6 C 63 18 105/68 98 Room Air 06/19/24 23:00 64 06/19/24 22:51 36.8 C 63 18 113/69 97 Room Air Diagnostic Findings Diagnostics: 06/19 TTE No vegetations reported but cannot exclude vegetation on mitral valve; mitral valve leaflets thickened but open well 06/18 Op report Procedures #1 removal of posterior instrumentation rods and S1 pedicle screws. #2 explor ation of fusion L5-S1. #3 revision interbody fusion L5-S1. #4 placement of Spira 15 x 26 mm interbody cage at L5-S1. #5 kyphoplasty of S1 vertebral body. #6 instrumentation T12-S1. #7 placement of infuse collagen sponge combined with Koros bone graft in the posterior lateral gutters and os design bone graft in the interbody space. #8 revision decompression L5-S1 Findings Consistent with Post-Op Diagnosis Postop seroma consistent with breakdown blood products not grossly infected. Utilizing the previous incision site sharp dissection formed down to and exposing the instrumentation from T12-S1. The end caps and rods were removed. I then tested the S1 screws noting it to be grossly loose. They were both removed. I then performed a kyphoplasty of the S1 vertebral body was there is evidence of fracture at this level. Inserted approximately 3 cc in each pedicle of S1 interdigitating into the vertebral body. This was followed by placement of a 9 x 45 mm pedicle screw and S1 bilaterally. After this complete revision decompression L5-S1 was performed including medial facetectomy foraminotomies on the right. By way of transforaminal approach on the right a discectomy of L5-S1 was performed endplates guided to subcortical bleeding bone and a 15 x 26 mm Spira cage filled os design bone graft tapped in position. The appropriate size rods were then placed and locked into position bilaterally. Approximately 10 cc of Stimulan beads impregnated with vancomycin gentamicin placed throughout the wound. 215 round YESSICA drains inserted. The incision was then closed with 1 Vicr yl the fascia 2-0 Vicryl subcutaneously and 4 Monocryl for final skin closure. Steri-Strips sterile dressing placed 06/16 CT A/P with contrast 1. No acute intraperitoneal abnormality is identified in the abdomen or pelvis. 2. Chronic posttraumatic and postsurgical changes of the lumbar spine as above noting multilevel spinal fusion, vertebroplasty, and a right transverse process fracture of L3. 3. There is a large peripherally enhancing gas and fluid containing collection in the subcutaneous soft tissues of the lower back at the level of T11-L1 which extends to the laminectomy site. This reaches the dermal surface and may represent a postsurgical seroma/hematoma. The sterility of this fluid collection cannot be assessed by imaging and abscess is not excluded. Clinical correlation will be essential. 4. Cardiomegaly and trace pleural effusions. 5. Intralobular septal thickening at the lung bases suggests fluid overload/congestive change. Correlate clinically. 6. Colonic diverticulosis without CT evidence of acute diverticulitis. 7. Additional findings as above. 06/14 CT L-spine wtihout contrast 1. Again seen is a late subacute 3 column fracture of L2 which extends through the posterior elements. There has been interval vertebroplasty at this level and spinal fusion. 2. The orthopedic hardware appears intact. 3. There is a right transverse process fracture of L3, likely on a postsurgical basis. 4. A postsurgical fluid collection is again seen posterior to the thecal sac at the operative levels, likely representing a seroma. This was better assessed on yesterday's MRI. 5. Lucency around the interpedicular screws in S1 suggests loosening. 6. Left-sided nephrolithiasis. 7. Additional findings as above. 06/13 MRI L-spine without contrast 1. Limited exam as above. 2. Posterior interbody deonna and screw fusion hardware involves the T12-S1 levels. 3. There is a postoperative fluid collection extending to the superficial subcutaneous tissues measuring up to 8.4 cm in length, likely a seroma. 4. Previously described subacute L2 and L1-L2 fractures are better seen and described on the comparison exam. Micro Data: 06/18 lower back OR Cx: E. coli (rodriguez-S); stain with no organisms, moderate WBCs 06/15 BCx x1: NGTD 06/14 UCx: <1k growth 06/13 BCx x1: E. coli in 2 of 2 bottles (rodriguez-S including S- amp/Augmentin/cefazolin/ceftriaxone/cipro/levo/Bactrim) Antibiotic Summary: cefazolin (06/18 present) prior ceftriaxone (06/13 06/17) other notable meds tocilizumab last received 05/30, has been held since then
--- NOTE | 2024-06-20 14:30 | Orthopedic Progress Note ---
Date of Service June 20, 2024 Assessment & Plan (1) E. coli septicemia: Plan: At this time we will continue the physical therapy as tolerated. Will plan for PICC line placement in the near future. He will hopefully be safe for discharge by the weekend. Admission and Anticipated Discharge Date Admission Date: June 13, 2024 Subjective Patient's back pain is controlled. Marked resolution of his leg pain. He is tolerating ambulation well. Physical Exam Physical Exam: Patient is good strength testing. Appears comfortable. Results & Data Vital Signs (Past 12 Hours) Vital Signs Temp Pulse Pulse Resp BP Pulse Ox O2 Del Method 06/20/24 14:28 68 06/20/24 12:21 66 06/20/24 11:43 36.9 C 77 18 105/74 98 Room Air 06/20/24 07:49 36.5 C 67 16 110/70 98 Room Air 06/20/24 03:27 36.6 C 63 18 105/68 98 Room Air
--- NOTE | 2024-06-20 18:06 | Hospitalist Progress Note ---
Date of Service June 20, 2024 Assessment & Plan (1) E. coli septicemia: Plan: With septic shock with fever of 38.8 C, leukocytosis, tachycardia, hypotension, w/ E. coli bacteremia. CRP elevated at 11, Procal elevated at 6 new onset severe lower back pain, suspect infected seroma/wound from recent back surgery. UA negative on admission and repeat UA and urine cx negative--> he did have a Davies last admission and is at risk for prostatitis/UTI but that doesn't seem to be present BioFire negative, CXR negative for PNA CT abd/pel to assess for intra-abd source of infection--> showed fluid collection in back but nothing else acute s/p redo of lumbar fusion, kyphoplasty S1, and seroma evacuation w/ Dr. Moya on 06/18 Consult ID appreciated-Change ceftriaxone to narrow coverage to Cefazolin-n anticipate a minimum 6-8 week course of IV abx, and would consider suppressive PO abx after completion of IV abx for at least 3-6 months Echocardiogram does not have confirmed endocarditis but does have thickened mitral valves cannot completely rule out endocarditis with this echo however discussion with infectious disease feels prolonged course of antibiotic treatment would likely treat both. Intraoperative wound culture show E coli same sensitivities repeat BCxs from 06/15 remain NGTD Will need PICC eventually consent obtained 06/19/2024 (2) S/P lumbar fusion: Plan: S/p Lumbar fusion with Dr. Moya on 06/05 and now repeat surgery 06/18 Post-op care as per Ortho Sp[facility] with pain control, bowel regimen dilutional anemia, now near his baseline (3) Hyperkalemia: Plan: K+ 5.8 on 06/17, no clear cause found-improved with IV lasix Potassium is improved stopping Lokelma (4) Thrombocytopenia: Plan: Platelets down to uzma of 68, now continue to be trending back upwards to 119. Not receiving any heparin products. Suspect secondary to sepsis which is now resolved Continue to follow CBC (5) Hypertension: Plan: with septic shock now resolved, continue holding home irbesartan and HCTZ CXR with some pulm edema, w/ normal POx and no resp distress, but with hyperkalemia, giving lasix dose lasix daily as needed patient is euvolemic on 06/19 Plan Chronic medical issues: Hyperlipidemia-continue home statin SVT-a history of such, none here thus far Continue to follow on tele for 1 day post-op and then can likely downgrade to med/surg on POD#2 Hypothyroidism-continue home levothyroxine, TSH recently is normal Restrictive lung disease-secondary to kyphosis as per PULM Giant cell arteritis- last dose of tocilizumab was on 05/30-on hold for recent back surgery and now for infection,follows with Rheum Dr. Florence. Does have granulomas in spleen and lungs seen on CT abd/pel. Says his Literacy Coach is aware and he was also seen by PULM-no diagnosis of sarcoidosis or TB that he knows of DVT proph-SCDs Admission and Anticipated Discharge Date Admission Date: June 13, 2024 Subjective Patient's back pain is controlled. Marked resolution of his leg pain. He is tolerating ambulation well. ID recommending skilled nursing antibiotics ambulating well, brace has arrived and will be placed by PT Physical Exam Physical Exam: Patient awake alert appropriate no cardiac murmurs heard no peripheral stigmata of endocarditis Distal extremities sensation is intact Results & Data Results & Data Vital Signs (Past 12 Hours) Vital Signs Temp Pulse Pulse Resp BP Pulse Ox O2 Del Method 06/20/24 14:28 68 06/20/24 12:21 66 06/20/24 11:43 98.4 F 77 18 105/74 98 Room Air 06/20/24 07:49 97.7 F 67 16 110/70 98 Room Air Laboratory Results review cbc review chemistry PG Care Time/CCT Total # of Minutes Spent Total Time Spent with Patient: Total time spent is greater than 50% in coordination of care (as documented) at patient's floor/unit and/or counseling patient: Coding Level of Care Code 97940 SUB INP/OBS CARE 2/35MIN Diagnoses E. coli septicemia A41.51 S/P lumbar fusion Z98.1 Hyperkalemia E87.5 Thrombocytopenia D69.6 Essential hypertension I10 Hypertension type: essential hypertension (5) Hypertension Hypertension type: essential hypertension Qualified Code(s): I10 - Essential (primary) hypertension
[2024-06-21 07:51] LABS: BUN Creatinine Ratio 18.1 (10-20); Calcium 8.4 mg/dl (8.6-10.3); Creatinine Clr Calc Pharmacy 86.4 ml/min; Potassium 3.9 mmol/L (3.5-5.1)
--- NOTE | 2024-06-21 08:29 | Orthopedic Progress Note ---
Date of Service June 21, 2024 Assessment & Plan (1) Gram-negative bacteremia: Plan: At this time we will arrange for possible discharge today. Will we will maintain the drains. Will follow him up in the office for drain removal and x- rays. Admission and Anticipated Discharge Date Admission Date: June 13, 2024 Subjective Patient's back pain is controlled leg symptoms markedly improved. He is ambulating without difficulty. Physical Exam Physical Exam: Patient is sitting up at the bedside. Is constricted testing. Drains are functioning. Results & Data Vital Signs (Past 12 Hours) Vital Signs Temp Pulse Pulse Resp BP Pulse Ox O2 Del Method 06/21/24 08:00 36.7 C 77 16 114/70 98 Room Air 06/21/24 02:36 36.6 C 60 18 138/83 100 Room Air 06/20/24 23:12 36.8 C 62 18 123/78 98 Room Air 06/20/24 22:11 63
[2024-06-21 12:01] VITALS: BP 124/86; RESP 18; TEMP 98.4; O2SAT 97
[2024-06-21 16:43] VITALS: PULSE 80
--- NOTE | 2024-06-21 18:14 | Discharge Summary ---
Discharge Summary Date of Service June 21, 2024 Principal Dx & Hospital Course #1 = Principal Diagnosis (1) E. coli septicemia: With septic shock with fever of 38.8 C, leukocytosis, tachycardia, hypotension, w/ E. coli bacteremia. CRP elevated at 11, Procal elevated at 6 new onset severe lower back pain, suspect infected seroma/wound from recent back surgery. UA negative on admission and repeat UA and urine cx negative--> he did have a Davies last admission and is at risk for prostatitis/UTI but that doesn't seem to be present BioFire negative, CXR negative for PNA CT abd/pel to assess for intra-abd source of infection--> showed fluid collecti on in back but nothing else acute s/p redo of lumbar fusion, kyphoplasty S1, and seroma evacuation w/ Dr. Moya on 06/18 Consult ID appreciated-Change ceftriaxone to narrow coverage to Cefazolin-n anticipate a minimum 6-8 week course of IV abx, and would consider suppressive PO abx after completion of IV abx for at least 3-6 months Echocardiogram does not have confirmed endocarditis but does have thickened mitral valves cannot completely rule out endocarditis with this echo however discussion with infectious disease feels prolonged course of antibiotic treatment would likely treat both. Intraoperative wound culture show E coli same sensitivities repeat BCxs from 06/15 remain NGTD PICC placed 06/20/2024 discharged on continuous cefazolin as listed above Will need repeat MRI on August 06 or so hopefully coordinated through Dr. Moay's office (2) S/P lumbar fusion: S/p Lumbar fusion with Dr. Moya on 06/05 and now repeat surgery 06/18 Post-op care as per Ortho Spine with pain control, bowel regimen dilutional anemia, now near his baseline (3) Hyperkalemia: K+ 5.8 on 06/17, no clear cause found-improved with IV lasix Potassium is improved stopping Lokelma (4) Thrombocytopenia: Platelets down to uzma of 68, now continue to be trending back upwards to 119. Not receiving any heparin products. Suspect secondary to sepsis which is now resolved (5) Hypertension: with septic shock now resolved, returned home added hypertensive regimen at time of discharge CXR with some pulm edema, w/ normal POx and no resp distress, Plan Chronic medical issues: Hyperlipidemia-continue home statin SVT-a history of such, none here thus far Hypothyroidism-continue home levothyroxine, TSH recently is normal Restrictive lung disease-secondary to kyphosis as per PULM Giant cell arteritis- last dose of tocilizumab was on 05/30-on hold for recent back surgery and now for infection,follows with Rheum Dr. Florence. Does have granulomas in spleen and lungs seen on CT abd/pel. Says his Home Care Specialist is aware and he was also seen by PULM-no diagnosis of sarcoidosis or TB that he knows of clinical task sent through the electronic messaging system to Dr. Florence to disclose the patient is not on his tocilizumab at this point in time and may consider his input on when to restart this after his infection has improved Notes For Next Care Provider Discussion on his tocilizumab to restart Surveillance of laboratories while on antibiotic Scheduling repeat MRI imaging as recommended and in for a round August 06 Admission HPI Per Admitting Provider Patient presents the emergency room with worsening back pain and marked difficulty with ambulation. He is approximately 8 days status post lumbar fusion. He had been having a normal postoperative course until recently. He denies any radicular complaints. Describes pain at the lumbosacral junction only. He denies pain in the thoracolumbar region. Discharge Exam Awake alert appropriate still has a surgical drains in place card exam is regular lungs are clear patient is stable and ready to go home Discharge Plan Discharge Items Patient Disposition: Home - Self-Care Reason For Visit: postop Discharge Diagnosis: Nonunion L5-S1 ecoli bacteria in blood and previous operative site Activity: As commented below Non-emergency contact: Primary Care Provider and Specialist Call non-emergency contact if: your symptoms worsen Follow-up/Referrals: Leo Clemens MD [Primary Care Provider] - 06/27/24 2:00 pm (Dr. Clemens did not have any available appointments. Your appointment is with Alyson Telles 06/27/24 at 2:00 p.m.) Diet: Regular Addtl Attending Provider Instructions: ACTIVITY RECOMMENDATIONS: SELF CARE INSTRUCTIONS AFTER THORACIC/LUMBAR FUSIONS 1. You may walk to your tolerance. It is good exercise for your legs and back. Expect some back and intermittent leg aches and pains. 2. You may perform "counter-top" level activities (make a sandwich, georges with a project, etc.). 3. No bending or lifting of more than 10 pounds or back twisting of any nature (roll like a log when turning in bed). 4. You may ride in a car for 20-30 minutes at a time. No driving until after your first visit with your doctor. 5. Frequent changes of position and restricting sitting to 30 minutes at a time will help limit the amount of back spasms and stiffness you may experience. 6. You may discontinue the use of ambulatory aids (cane, crutches, etc.) once your strength and confidence allow. 7. You may housekeeping staff the shower and let water strike your incision when you arrive home at least once daily. Do not take a tub bath, sit in a hot tub or go into a swimming pool until after your first recheck in the office. SPECIAL CARE INSTRUCTIONS: VERY IMPORTANT TO READ AND REVIEW A. Your surgical incision has been closed with a cosmetic suture under the skin that will dissolve in about 6 weeks. In 14 days, you can use a pair of clean scissors and cut the suture that is left outside of the skin at the ends of your incision. 1. The small skin tapes can be removed 7 days after surgery if they have not fallen off by that point. 2. You may keep the wound open to air as much as possible to promote healing after post-op day number 5 unless told otherwise by your doctor. 3. If you think the wound looks like it is becoming infected (redness or worsening drainage) and/or you are experiencing fever, chill or worsening back pain and muscle spasms, contact the office so that we may evaluate you as soon as possible. B. Complications are uncommon, but please contact us if you have any signs or symptoms of: 1. wound infection (fever higher than 102.5 degrees F, redness, separation of wound, drainage, or increasing pain from the incision) 2. blood clots in legs (pain, swelling, redness and warmth in legs) 3. urinary tract infection (fever higher than 102.5 degrees F, burning upon urination or increased frequency of urination) 4. nerve problems (inability to walk on your toes or heels, numbness, loss of bowel or bladder control) 5. any other symptoms that concern you C. Please call the office at if you have any concerns or questions about your operation or recovery. D. No smoking! Smoking drastically decreases the chance of a solid fusion. E. Do not take any anti-inflammatory medications (Indocin, Advil, Motrin, Aspirin, Naprosyn, etc.) as these may inhibit the chance of a solid fusion. Tylenol is okay to take for pain. MANAGING PAIN AFTER SPINAL SURGERY 1. Narcotic medication is intended for short-term use and will be provided for surgical pain. Surgical pain usually lasts for a period of 4-6 weeks. Narcotic medication includes Percocet, Vicodin, Darvocet, Tylenol #3 or Lortab. 2. Longer-term pain is more appropriately treated with non-narcotic medication such as Tylenol ES. 3. Muscle spasm is not appropriately treated with narcotics. Muscle relaxers such as Soma, Flexeril or Skelaxin can be used along with Tylenol ES. 4. Remember that we all live with some "aches and pains". This is not unusual or uncommon after an injury or as we get older. a. Back pain is expected and may include muscle spasms for 4 to 6 weeks after surgery. The pain should gradually improve. If the pain worsens for no apparent reason, please contact the office. b. Intermittent leg pain may also be experienced and should not be concerned about unless it worsens for no apparent reason. If so, please contact the office. 5. We will provide appropriate medication within the normal guidelines of their prescribed use. We will also be very cautious and aware of potential abuse and extended duration of patients' medication needs. a. Pain medications are for your comfort and to assist with sleep and rest so that the tissue can heal. They are not provided in order to return to normal activity and should not be used through the day. To do so or worsening pain at night can result from ongoing tissue damage and development of tolerance to the prescribed medicine. 6. Please allow 2-3 days to process refills. Prescriptions will not be mailed but must be picked up at the office. FOLLOW UP VISIT: Keep your scheduled follow-up appointment. Any questions, please call the office at . Addtl Multi Operation Machine Operator Provider Instructions: you will be on a daily infusion of antibiotics and will have follow up with an infectious disease doctor'' you should have weekly labs checked to assure your antibiotics are working well and not affecting your body in a negative way follow up with Dr Moya I have sent a message in the provider protal for Dr Dixon office to reach out to you Pending Studies at Discharge: No Stand-Alone Forms: [facility], Smoking Cessation Medications and DC Order Prescriptions: New cefazolin 3 gram recon soln 6 g IV DAILY Rx Instructions: last dose acetaminophen [Tylenol Extra Strength] 500 mg Tablet 1,000 mg PO Q8H PRN (Reason: fever or pain) Qty: 30 0RF oxycodone 5 mg tablet 5 mg PO Q6H PRN (Reason: pain) Qty: 30 0RF Continued irbesartan 300 mg tablet 300 mg PO QAM Qty: 90 3RF levothyroxine [Synthroid] 150 mcg tablet 150 mcg PO QAM Qty: 90 3RF PreserVision AREDS-2 250-90-40-1 mg Capsule 1 tab PO BID aspirin 81 mg tablet,delayed release (DR/EC) 81 mg PO QAM rosuvastatin 40 mg tablet 40 mg PO HS zoledronic oupu-wdozlhkn-tmnts [Reclast] 5 mg/100 mL Piggyback 5 ea IV YEARLY tramadol 50 mg tablet 50 mg PO Q6H PRN (Reason: Moderate Pain (Scale Score 5-6)) oxycodone 5 mg tablet 5 mg PO Q4H PRN (Reason: Severe Pain (Scale Score 7-10)) Held hydrochlorothiazide 12.5 mg tablet 12.5 mg PO QAM Qty: 90 3RF Hold Instructions: Provider's Order Actemra ACTPen 162 mg/0.9 mL pen injector 162 mg subcut Q7D Qty: 4 3RF Hold Instructions: Provider's Order Patient Comments: wednesdays, last dose before surgery 05/23/24 Discharge Orders: Discharge Order (Routine); Ordered 06/21/24 Ordered By: Renard Moya Admission Data Admit Date/Time: 06/13/24 12:34 Attending Provider: Renard Moya Admit Provider: Renard Moya Primary Care Provider: Leo Clemens Other Providers: Renard Moya; Loraine Parekh; Alton Riley Other Interventions: Discharge Summary Assessment (RN) Last Done: 06/21/24 16:42 Hospital Stay Data Consultations 06/13/24 12:27 ED Decision to Admit Stat 06/13/24 16:05 Consult Internal Medicine Routine 06/14/24 08:46 Consult Infectious Diseases Routine Procedures Performed Operation Date: 06/18/24 07:00 Actual Procedures p L5-S1 Fusion Revision(Not Applicable) - Renard Moya DO Diagnostic Imagining Performed 06/13/24 12:26 MRI Lumbar Spine [MR lumbar spine wo con] Stat 06/14/24 11:49 CT lumbar spine wo con Urgent 06/16/24 09:36 CT abd pelvis IV con only Routine 06/18/24 12:00 FL lumbar spine 2-3V Routine Pending Results Patient Have Any Pending Studies at Discharge: No Discharge Instructions Given to Patient (Per Discharging Provider) ACTIVITY RECOMMENDATIONS: SELF CARE INSTRUCTIONS AFTER THORACIC/LUMBAR FUSIONS 1. You may walk to your tolerance. It is good exercise for your legs and back. Expect some back and intermittent leg aches and pains. 2. You may perform "counter-top" level activities (make a sandwich, georges with a project, etc.). 3. No bending or lifting of more than 10 pounds or back twisting of any nature (roll like a log when turning in bed). 4. You may ride in a car for 20-30 minutes at a time. No driving until after your first visit with your doctor. 5. Frequent changes of position and restricting sitting to 30 minutes at a time will help limit the amount of back spasms and stiffness you may experience. 6. You may discontinue the use of ambulatory aids (cane, crutches, etc.) once your strength and confidence allow. 7. You may housekeeping staff the shower and let water strike your incision when you arrive home at least once daily. Do not take a tub bath, sit in a hot tub or go into a swimming pool until after your first recheck in the office. SPECIAL CARE INSTRUCTIONS: VERY IMPORTANT TO READ AND REVIEW A. Your surgical incision has been closed with a cosmetic suture under the skin that will dissolve in about 6 weeks. In 14 days, you can use a pair of clean scissors and cut the suture that is left outside of the skin at the ends of your incision. 1. The small skin tapes can be removed 7 days after surgery if they have not fallen off by that point. 2. You may keep the wound open to air as much as possible to promote healing after post-op day number 5 unless told otherwise by your doctor. 3. If you think the wound looks like it is becoming infected (redness or worsening drainage) and/or you are experiencing fever, chill or worsening back pain and muscle spasms, contact the office so that we may evaluate you as soon as possible. B. Complications are uncommon, but please contact us if you have any signs or symptoms of: 1. wound infection (fever higher than 102.5 degrees F, redness, separation of wound, drainage, or increasing pain from the incision) 2. blood clots in legs (pain, swelling, redness and warmth in legs) 3. urinary tract infection (fever higher than 102.5 degrees F, burning upon urination or increased frequency of urination) 4. nerve problems (inability to walk on your toes or heels, numbness, loss of bowel or bladder control) 5. any other symptoms that concern you C. Please call the office at if you have any concerns or questions about your operation or recovery. D. No smoking! Smoking drastically decreases the chance of a solid fusion. E. Do not take any anti-inflammatory medications (Indocin, Advil, Motrin, Aspirin, Naprosyn, etc.) as these may inhibit the chance of a solid fusion. Tylenol is okay to take for pain. MANAGING PAIN AFTER SPINAL SURGERY 1. Narcotic medication is intended for short-term use and will be provided for surgical pain. Surgical pain usually lasts for a period of 4-6 weeks. Narcotic medication includes Percocet, Vicodin, Darvocet, Tylenol #3 or Lortab. 2. Longer-term pain is more appropriately treated with non-narcotic medication such as Tylenol ES. 3. Muscle spasm is not appropriately treated with narcotics. Muscle relaxers such as Soma, Flexeril or Skelaxin can be used along with Tylenol ES. 4. Remember that we all live with some "aches and pains". This is not unusual or uncommon after an injury or as we get older. a. Back pain is expected and may include muscle spasms for 4 to 6 weeks after surgery. The pain should gradually improve. If the pain worsens for no apparent reason, please contact the office. b. Intermittent leg pain may also be experienced and should not be concerned about unless it worsens for no apparent reason. If so, please contact the office. 5. We will provide appropriate medication within the normal guidelines of their prescribed use. We will also be very cautious and aware of potential abuse and extended duration of patients' medication needs. a. Pain medications are for your comfort and to assist with sleep and rest so that the tissue can heal. They are not provided in order to return to normal activity and should not be used through the day. To do so or worsening pain at night can result from ongoing tissue damage and development of tolerance to the prescribed medicine. 6. Please allow 2-3 days to process refills. Prescriptions will not be mailed but must be picked up at the office. FOLLOW UP VISIT: Keep your scheduled follow-up appointment. Any questions, please call the office at . Total Time Total Time Spent Total Time Spent (In Minutes): It required greater than 30 minutes to prepare this patient for discharge. Coding Level of Care Code 50481 INP/OBS DISCH >30 MIN Diagnoses E. coli septicemia A41.51 S/P lumbar fusion Z98.1 Hyperkalemia E87.5 Thrombocytopenia D69.6 Essential hypertension I10 Hypertension type: essential hypertension
--- NOTE | 2024-06-26 07:24 | Coding Query ---
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 Please assist us with the question(s) below: Coding Question(s): Throughout the record, it's documented that the seroma was evacuated, but the OP reports does not mention this. Can you clarify if/when this was done? Physician's Response(s): During his revision fusion procedure evacuation of the lumbar seroma bone was also performed. Thank you Kaya Armendariz Principal Diagnosis: "that condition established after study, to be chiefly responsible for occasioning the admission of the patient to the hospital for care." Co-Existing Principal Diagnosis: "when two or more diagnoses equally meet the criteria for principal diagnosis as determined by the circumstances of admission, diagnostic work up, and/or therapy provided, and the Alphabetic Index, Tabular List, or another coding guideline does not provide sequencing direction, any one of the diagnoses may be sequenced first." "When the physician has documented what appears to be a current diagnosis in the body of the record, but has not included the diagnosis in the final diagnostic statement, the physician should be asked whether the diagnosis should be added." (Source [facility]oding [facility] 2 QTR90. p3-4) LUIS
--- NOTE | 2024-06-26 07:41 | Coding Query ---
To promote full compliance with coding requirements relating to patient care, physician participation is requested in all cases of maintenance trainer uncertainty. Please assist us with the question(s) below: Coding Question(s): It's mentioned that patient has osteoporosis and that there was evidence of S1 fx. Please clarify if this was a traumatic fx or osteoporotic fracture. It was noted throughout the record that the patient has/is suspected to have osteoporosis. According to coding guidelines "a code for osteoporotic fracture, and not a traumatic fracture, should be used for any patient with known osteoporosis who suffers a fracture, even if the patient had a minor fall or trauma, if that fall or trauma would not usually break a normal, healthy bone." Please indicate below the type of fracture: Physician's Response(s): (x ) Osteoporotic fracture of (maintenance trainer indicate site of fracture) ( ) Traumatic fracture of (maintenance trainer indicate site of fracture) ( ) Other, please specify MTDD
== END 2024-06-21 17:25 | disposition home health service (06) | DRG 856 ==
LOC: ED 08:03 → SUATTDRO 12:34 → INTOOBSV 12:34 → EDINP 12:34 → 3N 15:50 → 2S 22:52